=== PATIENT | female | born 1955 | race Caucasian/White ===

== ENCOUNTER 2018-04-27 11:27 | Emergency (ER) | payer OTHER ==
[2018-04-27 11:32] VITALS: BP 179/82; PULSE 93; RESP 16; TEMP 98.4
[2018-04-27] MEDS ORDERED: KETOROLAC 30 MG/ML 1 ML VIAL IM STA (11:44)
--- NOTE | 2018-04-27 11:51 | ED ---
General Adult HPI - General Chief complaint: Nausea/Vomiting/Diarrhea Stated complaint: Tooth,Ear,throat pain Time Seen by Provider: 04/27/18 11:34 Source: patient, RN notes reviewed, old records reviewed Mode of arrival: ambulatory Limitations: no limitations - History of Present Illness Initial comments: 62-year-old female presents for evaluation of right lower dental pain. Patient states that approximately 3 weeks ago she lost a filling, she has had progressive pain at this location for the past 2 weeks. This pain has become more severe. Denies fever or chills. She does complain of some facial pain adjacent to the affected tooth. She also complains of some nausea associated with her pain. She's had several episodes of vomiting in the past 24 hours. She has not vomited in the past several hours and had been able to tolerate some oral liquids. No diarrhea. No abdominal pain. No fever or chills. - Related Data Previous Rx's Medication Instructions Recorded Amoxicillin 500 mg PO TID #30 cap 04/27/18 Ibuprofen [Motrin] 600 mg PO Q8HR PRN #24 tab 04/27/18 Allergies Allergy/AdvReac Type Severity Reaction Status Date / Time No Known Allergies Allergy Verified 04/27/18 11:33 Review of Systems ROS Statement: Those systems with pertinent positive or pertinent negative responses have been documented in the HPI. ROS Other: All systems not noted in ROS Statement are negative. Past Medical History Past Medical History: No Reported History History of Any Multi-Drug Resistant Organisms: None Reported Past Surgical History: Section Additional Past Surgical History / Comment(s): kidney stones Past Psychological History: No Psychological Hx Reported Smoking Status: Former smoker Past Alcohol Use History: None Reported Past Drug Use History: None Reported General Exam Limitations: no limitations General appearance: alert, in no apparent distress Head exam: Present: atraumatic, normocephalic Eye exam: Present: normal appearance, PERRL ENT exam: Present: mucous membranes moist, other (Dental caries, missing filling in tooth #27, no drainable abscess, no facial swelling). Absent: TM's normal bilaterally Neck exam: Present: normal inspection. Absent: tenderness, meningismus Respiratory exam: Present: normal lung sounds bilaterally. Absent: respiratory distress, wheezes Cardiovascular Exam: Present: regular rate, normal rhythm GI/Abdominal exam: Present: soft. Absent: distended, tenderness, guarding, rebound Course Vital Signs 04/27/18 11:30 Temperature 98.4 F Pulse Rate 93 Respiratory 16 Rate Blood Pressure 179/82 O2 Sat by Pulse 99 Oximetry Medical Decision Making - Medical Decision Making 62-year-old female with progressively worsening tooth pain over the past several weeks. Patient is nontoxic, well-appearing. She will make an appointment with her dentist on Saturday. She will take Tylenol and Motrin for pain. She is prescribed prescription strength Motrin. She is started on amoxicillin. She will return with worsening nausea vomiting, or inability to tolerate her prescriptions. She will return with development of fever. Disposition Clinical Impression: Dental caries, Pain, dental Disposition: HOME SELF-CARE Condition: Good Instructions: Acute Nausea and Vomiting (ED), Toothache (ED) Additional Instructions: Please follow up with your dentist as soon as possible. Please return to the emergency department with worsening or changing symptoms, return with development of fever, or significant nausea and vomiting. Prescriptions: Amoxicillin 500 mg PO TID #30 cap Ibuprofen [Motrin] 600 mg PO Q8HR PRN #24 tab PRN Reason: Pain Is patient prescribed a controlled substance at d/c from ED?: No Referrals: None,Stated [Primary Care Provider] - 1-2 days Time of Disposition: 11:50
== END 2018-04-27 12:21 | disposition home or self-care (01) ==
LOC: EC 11:27
DX: K02.9 Dental caries, unspecified (principal); R11.2 Nausea with vomiting, unspecified; R07.0 Pain in throat; H92.09 Otalgia, unspecified ear; Z87.891 Personal history of nicotine dependence
CPT/HCPCS: 99284; 96372; J1885

== ENCOUNTER 2019-09-18 20:03 | Observation (INO) | payer OTHER ==
[2019-09-18] MEDS ORDERED: ONDANSETRON 4 MG/2 ML VIAL IVP STA (20:52)
[2019-09-18] MEDS ORDERED: SODIUM CHLORIDE 0.9% 500 ML 500 ML IV STA (20:52)
[2019-09-18] MEDS ORDERED: SODIUM CHLORIDE 0.9% 1,000 ML IV STA ×2 (20:52)
[2019-09-18] MEDS ORDERED: ACETAMINOPHEN TAB 500 MG TAB PO STA (20:52)
--- NOTE | 2019-09-18 20:52 | ED ---
Fever HPI - General Chief Complaint: Fever Stated Complaint: Fever,NVD,Headache Time Seen by Provider: 09/18/19 20:20 Source: patient, RN notes reviewed, old records reviewed Mode of arrival: ambulatory Limitations: no limitations - History of Present Illness Initial Comments: This is a 63-year-old female not feeling well coming in for evaluation of aches and pains fever nausea vomiting and diarrhea. No recent antibiotic therapy no travel history she has a positive contact with flu believes through work. No rashes, increased cough and congestion with shortness of breath on exertion MD Complaint: fever, malaise, weakness -: days(s) Temperature Source: subjective Context: sick contacts Associated Symptoms: chills, myalgias, cough, nausea, vomiting, diarrhea Treatments Prior to Arrival: none - Related Data Previous Rx's Medication Instructions Recorded Amoxicillin 500 mg PO TID #30 cap 04/27/18 Ibuprofen [Motrin] 600 mg PO Q8HR PRN #24 tab 04/27/18 Allergies Allergy/AdvReac Type Severity Reaction Status Date / Time No Known Allergies Allergy Verified 09/18/19 20:08 Review of Systems ROS Statement: Those systems with pertinent positive or pertinent negative responses have been documented in the HPI. ROS Other: All systems not noted in ROS Statement are negative. Past Medical History Past Medical History: No Reported History Additional Past Medical History / Comment(s): kidney stones History of Any Multi-Drug Resistant Organisms: None Reported Past Surgical History: Section Additional Past Surgical History / Comment(s): kidney stones Past Psychological History: No Psychological Hx Reported Smoking Status: Former smoker Past Alcohol Use History: None Reported Past Drug Use History: None Reported General Exam Limitations: no limitations General appearance: alert, in no apparent distress Head exam: Present: atraumatic, normocephalic, normal inspection Eye exam: Present: normal appearance, PERRL, EOMI. Absent: scleral icterus, conjunctival injection, periorbital swelling ENT exam: Present: normal exam, mucous membranes dry Neck exam: Present: normal inspection. Absent: tenderness, meningismus, lymphadenopathy Respiratory exam: Present: normal lung sounds bilaterally. Absent: respiratory distress, wheezes, rales, rhonchi, stridor Cardiovascular Exam: Present: normal rhythm, tachycardia, normal heart sounds. Absent: systolic murmur, diastolic murmur, rubs, gallop, clicks GI/Abdominal exam: Present: soft, normal bowel sounds. Absent: distended, tenderness, guarding, rebound, rigid Extremities exam: Present: normal inspection, full ROM, normal capillary refill. Absent: tenderness, pedal edema, joint swelling, calf tenderness Back exam: Present: normal inspection Neurological exam: Present: alert, oriented X3, CN II-XII intact Psychiatric exam: Present: normal affect, normal mood Skin exam: Present: warm, dry, intact, normal color. Absent: rash Course Vital Signs 09/18/19 20:07 Temperature 101.3 F H Pulse Rate 103 H Respiratory 20 Rate Blood Pressure 187/82 O2 Sat by Pulse 95 Oximetry - Reevaluation(s) Reevaluation #1: 09/18/19 21:55 Medical records reviewed Reevaluation #2: 09/18/19 21:55 Symptoms improved with fever control, IV hydration - Consultations Consultation #1: elizabeth w Fredo on-call who are agreeable for admission Medical Decision Making - Medical Decision Making 63 female ER with evaluation of severe body aches pains fever and cough. Jose Juan berrios does have flu plus pneumonia, patient be admitted for IV antibiotics. She was resuscitation as needed, fever control - Lab Data Result diagrams: 09/18/19 21:30 09/18/19 21:30 Lab Results 09/18/19 09/18/19 09/18/19 Range/Units 20:10 21:30 21:30 WBC 8.4 (3.8-10.6) k/uL RBC 4.39 (3.80-5.40) m/uL Hgb 13.5 (11.4-16.0) gm/dL Hct 41.9 (34.0-46.0) % MCV 95.5 (80.0-100.0) fL MCH 30.7 (25.0-35.0) pg MCHC 32.2 (31.0-37.0) g/dL RDW 13.7 (11.5-15.5) % Plt Count 173 (150-450) k/uL Neutrophils % 88 % Lymphocytes % 6 % Monocytes % 4 % Eosinophils % 1 % Basophils % 0 % Neutrophils # 7.4 (1.3-7.7) k/uL Lymphocytes # 0.5 L (1.0-4.8) k/uL Monocytes # 0.4 (0-1.0) k/uL Eosinophils # 0.0 (0-0.7) k/uL Basophils # 0.0 (0-0.2) k/uL Sodium 138 (137-145) mmol/L Potassium 4.0 (3.5-5.1) mmol/L Chloride 104 (98-107) mmol/L Carbon Dioxide 27 (22-30) mmol/L Anion Gap 7 mmol/L BUN 14 (7-17) mg/dL Creatinine 0.51 L (0.52-1.04) mg/dL Est GFR (CKD-EPI)AfAm >90 (>60 ml/min/1.73 sqM) Est GFR (CKD-EPI)NonAf >90 (>60 ml/min/1.73 sqM) Glucose 128 H (74-99) mg/dL Plasma Lactic Acid Juan F (0.7-2.0) mmol/L Calcium 8.8 (8.4-10.2) mg/dL Phosphorus 3.2 (2.5-4.5) mg/dL Magnesium 1.8 (1.6-2.3) mg/dL Total Bilirubin 0.5 (0.2-1.3) mg/dL AST 29 (14-36) U/L ALT 15 (4-34) U/L Alkaline Phosphatase 73 (38-126) U/L Total Protein 7.1 (6.3-8.2) g/dL Albumin 4.0 (3.5-5.0) g/dL Influenza Type A RNA Detected H (Not Detectd) Influenza Type B (PCR) Not Detected (Not Detectd) 09/18/19 Range/Units 21:30 WBC (3.8-10.6) k/uL RBC (3.80-5.40) m/uL Hgb (11.4-16.0) gm/dL Hct (34.0-46.0) % MCV (80.0-100.0) fL MCH (25.0-35.0) pg MCHC (31.0-37.0) g/dL RDW (11.5-15.5) % Plt Count (150-450) k/uL Neutrophils % % Lymphocytes % % Monocytes % % Eosinophils % % Basophils % % Neutrophils # (1.3-7.7) k/uL Lymphocytes # (1.0-4.8) k/uL Monocytes # (0-1.0) k/uL Eosinophils # (0-0.7) k/uL Basophils # (0-0.2) k/uL Sodium (137-145) mmol/L Potassium (3.5-5.1) mmol/L Chloride (98-107) mmol/L Carbon Dioxide (22-30) mmol/L Anion Gap mmol/L BUN (7-17) mg/dL Creatinine (0.52-1.04) mg/dL Est GFR (CKD-EPI)AfAm (>60 ml/min/1.73 sqM) Est GFR (CKD-EPI)NonAf (>60 ml/min/1.73 sqM) Glucose (74-99) mg/dL Plasma Lactic Acid Juan F 1.0 (0.7-2.0) mmol/L Calcium (8.4-10.2) mg/dL Phosphorus (2.5-4.5) mg/dL Magnesium (1.6-2.3) mg/dL Total Bilirubin (0.2-1.3) mg/dL AST (14-36) U/L ALT (4-34) U/L Alkaline Phosphatase (38-126) U/L Total Protein (6.3-8.2) g/dL Albumin (3.5-5.0) g/dL Influenza Type A RNA (Not Detectd) Influenza Type B (PCR) (Not Detectd) - EKG Data -: EKG Interpreted by Me (EKG shows sinus rhythm of 82, MD 150, QRS 94, QTc 476) - Radiology Data Radiology results: report reviewed (Chest x-rays positive for pneumonia), image reviewed Disposition Clinical Impression: Influenza, Fever, Community acquired pneumonia Disposition: ADMITTED IP TO THIS HOSP Condition: Fair Is patient prescribed a controlled substance at d/c from ED?: No Referrals: None,Stated [Primary Care Provider] - 1-2 days
[2019-09-18] MEDS ORDERED: KETOROLAC 30 MG/ML 1 ML VIAL IVP STA (20:53)
--- NOTE | 2019-09-18 21:29 | XR ---
EXAMINATION TYPE: XR chest 2V DATE OF EXAM: 09/18/2019 COMPARISON: NONE HISTORY: Fever and cough TECHNIQUE: FINDINGS: Heart and mediastinum are normal. There are no hilar masses.. There is mild reticular densi ty left lower lobe. Pulmonary vascularity is normal. There is no heart failure. Bony thorax is intact . IMPRESSION: There is mild infiltrate left lower lobe. Normal heart.
[2019-09-18 21:44] LABS: Basophils % (A) 0 %; Eosinophils % (A) 1 %; HCT 41.9 % (34.0-46.0); HGB 13.5 gm/dL (11.4-16.0); Lymphocytes # (A) 0.5 k/uL (1.0-4.8); Lymphocytes % (A) 6 %; MCH 30.7 pg (25.0-35.0); MCHC 32.2 g/dL (31.0-37.0); MCV 95.5 fL (80.0-100.0); Monocytes # (A) 0.4 k/uL (0-1.0); Monocytes % (A) 4 %; Neutrophils # (A) 7.4 k/uL (1.3-7.7); Neutrophils % (A) 88 %; Platelet Count 173 k/uL (150-450); RBC 4.39 m/uL (3.80-5.40); RDW 13.7 % (11.5-15.5); WBC 8.4 k/uL (3.8-10.6)
[2019-09-18 21:52] LABS: ALT 15 U/L (4-34); AST 29 U/L (14-36); African American GFR (CKD) >90 (>60 ml/min/1.73 sqM); Alkaline Phosphatase 73 U/L (38-126); Anion Gap 7 mmol/L; Blood Urea Nitrogen 14 mg/dL (7-17); Calcium 8.8 mg/dL (8.4-10.2); Carbon Dioxide 27 mmol/L (22-30); Chloride 104 mmol/L (98-107); Glucose 128 mg/dL (74-99); Magnesium 1.8 mg/dL (1.6-2.3); Non-African American GFR(CKD) >90 (>60 ml/min/1.73 sqM); Phosphorus 3.2 mg/dL (2.5-4.5); Sodium 138 mmol/L (137-145); Total Bilirubin 0.5 mg/dL (0.2-1.3); Total Protein 7.1 g/dL (6.3-8.2)
[2019-09-18] MEDS ORDERED: AZITHROMYCIN 500 MG in SODIUM CHLORIDE 0.9% 250 ML IVPB STA (21:52)
[2019-09-18] MEDS ORDERED: DEXAMETHASONE SOD PHOSPHATE 10 MG/ML 1 ML VIAL IV STA (21:52)
[2019-09-18] MEDS ORDERED: OSELTAMIVIR 75 MG CAP PO STA (21:52)
[2019-09-18] MEDS ORDERED: ACETAMINOPHEN TAB 325 MG TAB PO PRN (21:52)
[2019-09-18] MEDS ORDERED: PNEUMONIA PROTOCOL UTILIZED 1 EACH MISC PO PRN (21:52)
[2019-09-18] MEDS ORDERED: IPRATROPIUM-ALBUTEROL 3 ML NEB INHALATION PRN (21:52)
[2019-09-18 21:55] LABS: Appearance,Urine Clear (Clear); Bacteria,Urine Rare /hpf; Bilirubin,Urine Negative (Negative); Blood,Urine Moderate (Negative); Color,Urine Yellow; Glucose,Urine (UA) Negative (Negative); Ketones,Urine Negative (Negative); Leukocyte Esterase,Urine Small (Negative); Mucus,Urine Rare /hpf; Nitrite,Urine Negative (Negative); Protein,Urine 1+ (Negative); RBC,Urine 33 /hpf (0-5); Specific Gravity,Urine 1.024 (1.001-1.035); Squamous Epithelial Cell,Urine 1 /hpf (0-4); Urobilinogen,Urine <2.0 mg/dL (<2.0); WBC,Urine 4 /hpf (0-5)
[2019-09-18] MEDS: SODIUM CHLORIDE 0.9% 1,000 ML IV SCH (23:32)
[2019-09-19] MEDS ORDERED: AZITHROMYCIN 500 MG in SODIUM CHLORIDE 0.9% 250 ML IVPB ONE (00:30)
--- NOTE | 2019-09-19 01:22 | P.HPIM ---
History of Present Illness H&P Date: 09/19/19 The patient is a 63-year-old female with no known PMH who presented to the ED for likely fever, chills, body aches, and lethargy. The patient reports that she believes she might of gotten the flu from 1 of her coworkers. 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 The patient notes that another girl was ill with similar symptoms at work yesterday evening. At time of interview, she reported feeling better. She reports continued cough nonproductive of phlegm. She notes continued mild nausea, but denied chest pain, shortness of breath, abdominal pain, dizziness, or headaches. Patient underwent an extensive evaluation in the emergency room with chest x-ray showing mild left lower lobe infiltrate, and EKG showing normal sinus rhythm at 82 bpm. Laboratory evaluation revealed a troponin of 0.044, influenza A positive, WBC count 8.4, and Hgb 13.5, platelets 173, sodium 138, potassium 4.0, BUN 14, creatinine 0.51, and glucose 128. Patient was given IV antibiotics, started on Tamiflu, and is being admitted for further management. Review of Systems Pertinent positives and negatives as discussed in HPI, a complete review of systems was performed and all other systems are negative. Past Medical History Past Medical History: No Reported History, GERD/Reflux Additional Past Medical History / Comment(s): STATES ACID REFLUX AND KIDNEY STONES History of Any Multi-Drug Resistant Organisms: None Reported Past Surgical History: Section Additional Past Surgical History / Comment(s): KIDNEY STONES Past Anesthesia/Blood Transfusion Reactions: No Reported Reaction Past Psychological History: No Psychological Hx Reported Smoking Status: Former smoker Past Alcohol Use History: None Reported Past Drug Use History: None Reported Additional Drug Use History / Comment(s): STATES QUIT SMOKING 40 YEARS AGO Medications and Allergies Home Medications Medication Instructions Recorded Confirmed Type Amoxicillin 500 mg PO TID #30 cap 04/27/18 Rx Ibuprofen [Motrin] 600 mg PO Q8HR PRN #24 tab 04/27/18 Rx Allergies Allergy/AdvReac Type Severity Reaction Status Date / Time No Known Allergies Allergy Verified 09/18/19 20:08 Physical Exam Vitals: Vital Signs Temp Pulse Pulse Resp BP BP Pulse Ox 09/18/19 23:30 99.2 F 82 148/70 93 L 09/18/19 22:48 99.6 F 78 18 141/69 98 09/18/19 20:07 101.3 F H 103 H 20 187/82 95 Intake and Output 09/18/19 09/18/19 09/19/19 14:59 22:59 06:59 Other: Weight 103.238 kg 103.238 kg General: non toxic, no distress, appears at stated age, normal weight Derm: no unusual rashes/lesions no unusual ecchymoses, warm, dry Head: atraumatic, normocephalic, symmetric Eyes: EOMI, no lid lag, anicteric sclera, pupils equal round reactive to light ENT: Nose and ears atraumatic, no thrush, no pharyngeal erythema Neck: No thyromegaly, no cervical lymphadenopathy, trachea midline, supple Mouth: no lip lesion, mucus membranes moist Cardiovascular: S1S2 reg, no murmur, positive posterior tibial pulse bilateral, no edema, capillary refill less than 2 seconds Lungs: Some scattered rhonchi, no rales , no accessory muscle use Abdominal: soft, nontender to palpation, no guarding, no appreciable organomegaly, normal bowel sounds Ext: no gross muscle atrophy, muscle strength 5 out of 5 in all 4 extremities grossly, no contractures, Neuro: CN II-XI grossly intact, light touch intact all 4 extremities, finger to nose within normal limits, Psych: Alert, oriented, appropriate affect Results CBC & Chem 7: 09/18/19 21:30 09/18/19 21:30 Labs: Abnormal Lab Results - Last 24 Hours (Table) 09/18/19 09/18/19 09/18/19 Range/Units 20:10 21:30 21:30 Lymphocytes # 0.5 L (1.0-4.8) k/uL Creatinine 0.51 L (0.52-1.04) mg/dL Glucose 128 H (74-99) mg/dL Troponin I (0.000-0.034) ng/mL Urine Protein (Negative) Urine Blood (Negative) Ur Leukocyte Esterase (Negative) Urine RBC (0-5) /hpf Urine Bacteria (None) /hpf Urine Mucus (None) /hpf Influenza Type A RNA Detected H (Not Detectd) 02/21/20 02/21/20 Range/Units 21:30 21:35 Lymphocytes # (1.0-4.8) k/uL Creatinine (0.52-1.04) mg/dL Glucose (74-99) mg/dL Troponin I 0.044 H* (0.000-0.034) ng/mL Urine Protein 1+ H (Negative) Urine Blood Moderate H (Negative) Ur Leukocyte Esterase Small H (Negative) Urine RBC 33 H (0-5) /hpf Urine Bacteria Rare H (None) /hpf Urine Mucus Rare H (None) /hpf Influenza Type A RNA (Not Detectd) Assessment and Plan Plan: Sepsis, likely secondary to combination of influenza A infection and community acquired pneumonia -Continue with ceftriaxone and azithromycin -Continue with Tamiflu -IV fluids with normal saline 100 mL/h -Follow up blood and sputum cultures -Supplemental oxygen -C/w droplet isolation Elevated troponin -Patient denied active chest pain, or shortness of breath -Likely secondary to sepsis -Continue to monitor troponins DVT prophylaxis -Heparin subq The patient is admitted with an anticipated less than 2 midnight stay for evaluation of influenza a infection CODE STATUS: Full Code Discussed with: Patient Anticipated discharge date: 1-[address]: Home A total of 35 minutes was spent on the care of this complex patient more than 50% of the time was spent in counseling and care coordination.
--- NOTE | 2019-09-19 07:03 | XR ---
EXAMINATION TYPE: XR chest 2V DATE OF EXAM: 09/19/2019 HISTORY: pneumonia. REFERENCE: Previous study dated 09/18/2019. FINDINGS: Heart size upper limits of normal. Interstitial change in the left lower lobe persists. The re is no focal consolidation. No pleural fluid is seen. IMPRESSION: CONTINUING, PATCHY INTERSTITIAL AND ALVEOLAR AIRSPACE DISEASE, LEFT LOWER LOBE, COMPATIBLE WITH DEVEL OPING PNEUMONIA.
[2019-09-19 08:42] LABS: HCT 40.5 % (34.0-46.0); HGB 13.1 gm/dL (11.4-16.0); MCH 31.1 pg (25.0-35.0); MCHC 32.2 g/dL (31.0-37.0); MCV 96.5 fL (80.0-100.0); Mean Platelet Volume 7.8; Platelet Count 202 k/uL (150-450); WBC 8.8 k/uL (3.8-10.6)
[2019-09-19 08:48] LABS: African American GFR (CKD) >90 (>60 ml/min/1.73 sqM); Anion Gap 7 mmol/L; Blood Urea Nitrogen 13 mg/dL (7-17); Carbon Dioxide 24 mmol/L (22-30); Chloride 108 mmol/L (98-107); Glucose 139 mg/dL (74-99); Non-African American GFR(CKD) >90 (>60 ml/min/1.73 sqM); Potassium 3.9 mmol/L (3.5-5.1); Sodium 139 mmol/L (137-145)
[2019-09-19 08:52] VITALS: BP 160/74; PULSE 69; RESP 17; TEMP 98.7
[2019-09-19] MEDS: SODIUM CHLORIDE 0.9% 1,000 ML IV SCH (08:54)
[2019-09-19] MEDS ORDERED: AZITHROMYCIN 500 MG TAB PO SCH (09:00)
[2019-09-19] MEDS ORDERED: OSELTAMIVIR 75 MG CAP PO SCH (09:00)
[2019-09-19] MEDS ORDERED: ENOXAPARIN 40 MG/0.4 ML SYRINGE SQ SCH (09:00)
--- NOTE | 2019-09-19 13:43 | P.DS ---
Providers Date of admission: 09/18/19 21:52 Expected date of discharge: 09/19/19 Attending physician: David Roland MD Primary care physician: Stated None Hospital Course: Discharge Diagnosis: Influenza A Influenza pneumonia Sepsis ruled out tachycardia due to fevers elevated troponin, not clinically significant Hospital Course: Patient is a 63-year-old female with a history of GERD, prior tobacco abuse, and kidney stones who presented to the emergency department for fevers, chills, body aches, and lethargy. She tested positive for influenza A. Lab oratory analysis showed mildly elevated troponin 0.044. Chest x-ray showed patchy airspace disease in the left lower lobe compatible with pneumonia. She was noted to have a fever of 101.3 and a pulse of 103. She was started on Rocephin, Zithromax, and Tamiflu. She was admitted for further monitoring. Her antibiotics were discontinued and it was felt that her pneumonia was likely related to influenza, as she did have appropriate response to treatment and did not have extensive pneumonia. On the morning of 09/19 she was feeling greatly improved. She was determined stable for discharge home. She'll complete her course of Tamiflu. She will follow up with the [facility] as able. She will be presented to the ER with any worsening of her symptoms are recurrent fevers that she may develop a secondary bacterial infection due to her influenza. We also discussed that if any of her family members become symptomatic he should be tested for flu and treated, we also discussed consider ation for prophylactic Tamiflu dosing considering her known influenza A. Patient seen and examined at bedside. No chest pain, shortness of breath, still with some abdominal pain, no diarrhea, no nausea, abdominal pain better. Vital signs reviewed and stable. General: non toxic, no distress, appears at stated age Derm: warm, dry Head: atraumatic, normocephalic, symmetric Eyes: EOMI, no lid lag, anicteric sclera Mouth: no lip lesion, mucus membranes moist Cardiovascular: S1S2 reg, no murmur, positive posterior tibial pulse bilateral, Lungs: Crackles left bases ,+ accessory muscle use Abdominal: soft, nontender to palpation, no guarding, no appreciable organomegaly Ext: no gross muscle atrophy, no edema, no contractures Neuro: CN II-XI grossly intact, no focal neuro deficits Psych: Alert, oriented, appropriate affect A total of 35 minutes of time were spent preparing this complex discharge summary . Patient Condition at Discharge: Stable Plan - Discharge Summary Discharge Rx Participant: No New Discharge Prescriptions: No Action Acetaminophen [Tylenol] 650 mg PO Q6H PRN PRN Reason: Headache Discharge Medication List Oseltamivir [Tamiflu] 75 mg PO Q12HR #8 cap 09/19/19 [Rx] Follow up Appointment(s)/Referral(s): None,Stated [Primary Care Provider] - 1-2 days [facility] Patient Instructions/Handouts: Influenza (DC) Activity/Diet/Wound Care/Special Instructions: Activity: as tolerated Diet: regular Special Instructions: Return to Emergency room if symptoms worsen Discharge/Stand Alone Forms: Work/Release Restrictions Form Discharge Disposition: HOME SELF-CARE
== END 2019-09-19 15:30 | disposition home or self-care (01) ==
LOC: EC 20:03 → 4SSUR 21:52
PROVIDERS: ADMIT Family Medicine; ATTEND Family Medicine
DX: J10.00 Influenza due to other identified influenza virus with unspecified type of pneumonia (principal); R00.0 Tachycardia, unspecified; A41.9 Sepsis, unspecified organism; K21.9 Gastro-esophageal reflux disease without esophagitis; Z87.891 Personal history of nicotine dependence; Z87.442 Personal history of urinary calculi; Z79.2 Long term (current) use of antibiotics; Z79.1 Long term (current) use of non-steroidal anti-inflammatories (NSAID)
CPT/HCPCS: 96366; 96367; 96372; 96361; 96365; 96375; 99285; 36415; 93005; 80053; 80048; 83605; 83735; 84100; 84484 ×2; 85025; 85027; 81001; 87040 ×2; 87502; 71046 ×2; G0378 ×2; J1100; J2405; J0456; J1650; J0696; J1885

== ENCOUNTER 2021-02-22 08:18 | Emergency (ER) | payer OTHER ==
[2021-02-22 08:24] VITALS: BP 186/102; PULSE 71; RESP 16; TEMP 97.6
--- NOTE | 2021-02-22 10:01 | CT ---
EXAMINATION TYPE: CT brain wo con DATE OF EXAM: 02/22/2021 COMPARISON: None HISTORY: Fall CT DLP: 1118.[address] of the brain was performed. The ventricles, basal cisterns and sulci overlying the cerebral convexities demonstrate mild enlargem ent. There is no evidence for intracranial hemorrhage or sulcal effacement. There is decreased attenuation about the periventricular white matter and deep white matter of both c erebral hemispheres, compatible with chronic small vessel ischemia. Differential diagnosis does inclu de demyelination. No mass effects are seen.No midline shift. Osseous calvarium is intact. Left occipital parietal scalp hematoma. If symptoms persist consider MRI. IMPRESSION: 1. Age related atrophic and chronic small vessel ischemic change without acute intracranial process s een at this time.Left occipital parietal scalp hematoma.
--- NOTE | 2021-02-22 10:03 | ED ---
Fall HPI - General Chief Complaint: Fall Stated Complaint: [facility] - fall Time Seen by Provider: 02/22/21 08:24 Source: patient, RN notes reviewed Mode of arrival: ambulatory Limitations: no limitations - History of Present Illness Initial Comments: 65-year-old female presents emergency Department chief complaint of head injury. Patient states she was walking department for work states her some water on the ground she slipped fall striking her head on left side. Her tetanus is up-to-date no blurred vision she has mild headache. Patient denies any neck pain back pain or any other extremity injuries. - Related Data Previous Rx's Medication Instructions Recorded Oseltamivir [Tamiflu] 75 mg PO Q12HR #8 cap 09/19/19 Allergies Allergy/AdvReac Type Severity Reaction Status Date / Time No Known Allergies Allergy Verified 02/22/21 08:19 Review of Systems ROS Statement: Those systems with pertinent positive or pertinent negative responses have been documented in the HPI. ROS Other: All systems not noted in ROS Statement are negative. Past Medical History Past Medical History: No Reported History, GERD/Reflux Additional Past Medical History / Comment(s): STATES ACID REFLUX AND KIDNEY STONES History of Any Multi-Drug Resistant Organisms: None Reported Past Surgical History: Section Additional Past Surgical History / Comment(s): KIDNEY STONES Past Anesthesia/Blood Transfusion Reactions: No Reported Reaction Past Psychological History: No Psychological Hx Reported Smoking Status: Never smoker Past Alcohol Use History: None Reported Past Drug Use History: None Reported General Exam Limitations: no limitations General appearance: alert, in no apparent distress Head exam: Present: atraumatic, normocephalic. Absent: normal inspection (Small superficial scalp laceration) Eye exam: Present: normal appearance, PERRL, EOMI. Absent: scleral icterus, conjunctival injection, periorbital swelling ENT exam: Present: normal exam, normal oropharynx, mucous membranes moist Neck exam: Present: normal inspection, full ROM. Absent: tenderness, meningismus, lymphadenopathy Respiratory exam: Present: normal lung sounds bilaterally. Absent: respiratory distress, wheezes, rales, rhonchi, stridor Cardiovascular Exam: Present: regular rate, normal rhythm, normal heart sounds. Absent: systolic murmur, diastolic murmur, rubs, gallop, clicks GI/Abdominal exam: Present: soft, normal bowel sounds. Absent: distended, tenderness, guarding, rebound, rigid Extremities exam: Present: normal inspection, full ROM, normal capillary refill. Absent: tenderness, pedal edema, joint swelling, calf tenderness Neurological exam: Present: alert, oriented X3, CN II-XII intact, reflexes normal. Absent: motor sensory deficit Skin exam: Present: warm, dry, intact, normal color. Absent: rash Course Vital Signs 02/22/21 08:19 Temperature 97.6 F Pulse Rate 71 Respiratory 16 Rate Blood Pressure 186/102 O2 Sat by Pulse 100 Oximetry Medical Decision Making - Medical Decision Making CT shows evidence of scalp hematoma patient does have superficial laceration does not require closure. Tetanus up-to-date. Otherwise unremarkable. Patient discharged in stable condition. Disposition Clinical Impression: Fall, Scalp hematoma, Scalp laceration Disposition: HOME SELF-CARE Condition: Stable Instructions (If sedation given, give patient instructions): Head Injury (ED) Additional Instructions: Please return to the Emergency Department if symptoms worsen or any other concerns. Is patient prescribed a controlled substance at d/c from ED?: No Referrals: None,Stated [Primary Care Provider] - 1-2 days Time of Disposition: 10:07
== END 2021-02-22 10:27 | disposition home or self-care (01) ==
LOC: EC 08:18
DX: S01.01XA Laceration without foreign body of scalp, initial encounter (principal); K21.9 Gastro-esophageal reflux disease without esophagitis; Z79.899 Other long term (current) drug therapy; W01.0XXA Fall on same level from slipping, tripping and stumbling without subsequent striking against object, initial encounter
CPT/HCPCS: 70450; 99284

== ENCOUNTER 2021-03-01 11:37 | Inpatient (IN) | payer OTHER, MEDICARE ==
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
--- NOTE | 2021-03-01 12:40 | CT ---
EXAMINATION TYPE: CT brain wo con for TPA DATE OF EXAM: 03/01/2021 COMPARISON: 02/22/2021 INDICATION: Confusion. DLP: 1118.8 mGycm, Automated exposure control for dose reduction was used. CONTRAST: None CT of the brain is performed utilizing 3 mm thick sections through the posterior fossa and 3 mm thick sections through the remaining calvarium. Study is performed within 24 hours of arrival to the hosp ital. No abnormal hyperdensity is present to suggest an acute intracranial hemorrhage. No mass lesion is evident. No acute infarcts are evident. Brain signal appears stable from comparison Ventricles and sulci are appropriate for the patient age. Paranasal sinuses and mastoid air cells within the [id number] are clear. There is some soft tissue swelling over the right occipital cortex region. This is diminished from co mparison. No underlying fractures evident. IMPRESSIONS: 1. No acute intracranial process. 2. MRI can be utilized for more sensitive evaluation of neurologic symptoms.
[2021-03-01 12:43] LABS: Basophils % (A) 1 %; Eosinophils # (A) 0.1 k/uL (0-0.7); Eosinophils % (A) 2 %; HCT 39.7 % (34.0-46.0); HGB 12.9 gm/dL (11.4-16.0); Lymphocytes # (A) 1.6 k/uL (1.0-4.8); Lymphocytes % (A) 23 %; MCH 32.1 pg (25.0-35.0); MCHC 32.6 g/dL (31.0-37.0); MCV 98.5 fL (80.0-100.0); Mean Platelet Volume 7.8; Monocytes # (A) 0.3 k/uL (0-1.0); Monocytes % (A) 5 %; Neutrophils # (A) 4.9 k/uL (1.3-7.7); Neutrophils % (A) 69 %; Platelet Count 255 k/uL (150-450); RBC 4.03 m/uL (3.80-5.40); RDW 13.4 % (11.5-15.5); WBC 7.2 k/uL (3.8-10.6)
[2021-03-01 12:48] LABS: ALT 14 U/L (4-34); AST 22 U/L (14-36); African American GFR (CKD) >90 (>60 ml/min/1.73 sqM); Albumin 3.8 g/dL (3.5-5.0); Alkaline Phosphatase 78 U/L (38-126); Anion Gap -2 mmol/L; Blood Urea Nitrogen 19 mg/dL (7-17); Calcium 9.3 mg/dL (8.4-10.2); Carbon Dioxide 25 mmol/L (22-30); Chloride 110 mmol/L (98-107); Glucose 144 mg/dL (74-99); Non-African American GFR(CKD) >90 (>60 ml/min/1.73 sqM); Potassium 3.8 mmol/L (3.5-5.1); Sodium 133 mmol/L (137-145); Total Bilirubin 0.2 mg/dL (0.2-1.3); Total Protein 6.3 g/dL (6.3-8.2)
--- NOTE | 2021-03-01 13:14 | CT ---
EXAMINATION TYPE: CT angio head neck DATE OF EXAM: 03/01/2021 COMPARISON: Correlation CT brain same day HISTORY: 65-year-old female acute neurologic deficit, stroke suspected. Confusion. TECHNIQUE: Contiguous axial scanning of the head and neck performed with IV Contrast, patient injecte d with 65 mL of Isovue 370. Coronal/sagittal reconstructions performed. 3-D reconstructions generated on a dedicated workstation. CT DLP: 564.3 mGycm Automated exposure control for dose reduction was used. FINDINGS: NECK: Conventional arch vessel branching anatomy. The vertebral arteries are codominant and patent throughout the course. Right common and internal carotid arteries are widely patent by NASCET criteria. Left common carotid artery is patent. There is mild atherosclerotic calcification within the left car otid bulb but without any significant narrowing of the left ICA by NASCET criteria. BRAIN: The vertebral and basilar arteries are patent as is the remainder of the posterior circulation. Bilateral patent posterior communicating arteries. Scattered mild atherosclerotic calcifications in the carotid siphons. No significant ICA stenosis. Re mainder of the anterior circulation is patent. No aneurysmal change is identified. Dural venous sinuses are patent. IMPRESSION: 1. NECK: MINIMAL ATHEROSCLEROTIC CHANGE AT THE LEFT CAROTID BULB. OTHERWISE, WIDELY PATENT CAROTID AN D VERTEBRAL ARTERIES OF THE NECK. 2. HEAD: NO LARGE VESSEL INTRACRANIAL ARTERIAL OCCLUSION, SIGNIFICANT STENOSIS, OR ANEURYSMAL CHANGE IS SEEN.
[2021-03-01 13:15] LABS: Partial Thromboplastin Time 22.8 sec (22.0-30.0); Prothrombin Time 10.6 sec (9.0-12.0)
--- NOTE | 2021-03-01 13:31 | XR ---
EXAMINATION TYPE: XR chest 2V DATE OF EXAM: 03/01/2021 COMPARISON: 09/19/2019 TECHNIQUE: PA and lateral views submitted. HISTORY: Altered mental status FINDINGS: The lungs are clear and there is no pneumothorax, pleural effusion, or focal pneumonia. Worsened in terstitium similar to prior exam. Arthropathy of the shoulders. Calcification along the left humeral head likely related to calcific tendinosis. IMPRESSION: 1. No acute process. Stable coarsened interstitium may represent chronic interstitial lung disease.
[2021-03-01] MEDS ORDERED: ASPIRIN 325 MG TAB PO STA (14:02)
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
[2021-03-01] MEDS: SODIUM CHLORIDE 0.9% 1,000 ML IV SCH (17:00)
[2021-03-01] MEDS ORDERED: CLOPIDOGREL 75 MG TAB PO STA (19:45)
[2021-03-01] MEDS: ATORVASTATIN 40 MG TAB PO SCH (20:33)
--- NOTE | 2021-03-02 00:03 | P.HPIM ---
History of Present Illness This is a pleasant 65 years old female with no significant past medical history, she is not on medication and she does not have PCP. 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 Presents with. Of confusion and left hand numbness since yesterday, she cannot feel her fingers. She denies any headache, blurred vision or slurred speech. As per daughter at bedside she was driving yesterday when she was confused although she was oriented to time, place and person but she is somewhat lost while driving. No dizziness or loss of consciousness. No weakness. No seizure-like activity. She fell about 2 months ago when she slipped on the floor without dizziness or syncope. Perfusion is improved currently but she still felt numb in her left upper extremity. No other symptoms like no chest pain or dyspnea, no change in urine or bowel habits. No fever. She denies smoking, alcohol or illicit tracts Vitals are stable, blood pressure is slightly elevated up to 191/83. Currently blood pressure is improved with systolic in 160s. Labs including CBC and INR are unremarkable. Sodium only slightly low at 133, creatinine at 0.4. Liver enzymes not elevated. Troponin less than 0.012. EKG shows sinus tachycardia at 107, QTC is 467, no significant ST-T changes Chest x-ray: No acute process. Chronic interstitial lung disease CT of the brain: No acute process. CTA of the brain: Minimal atherosclerotic changes of the left carotid bulb. Otherwise widely patent carotid and vertebral arteries of the neck . Head CTA showed no large vessel intracranial arterial occlusion. No significant stenosis or aneurysmal changes In the emergency room patient was started on aspirin 81 mg. Also normal saline at 100 mL per hour, Lipitor and one-time dose of Plavix 300 mg Review of Systems CONSTITUTIONAL: No fever, no malaise, no fatigue. HEENT: No recent visual problems or hearing problems. Denied any sore throat. CARDIOVASCULAR: No orthopnea, PND, no palpitations, no syncope. PULMONARY: No shortness of breath, no cough, no hemoptysis. GASTROINTESTINAL: No diarrhea, no nausea, no vomiting, no abdominal pain. No rmoactive bowel sounds. NEUROLOGICAL: No headaches, no weakness, no numbness. HEMATOLOGICAL: Denies any bleeding or petechiae. GENITOURINARY: Denies any burning micturition, frequency, or urgency. MUSCULOSKELETAL/RHEUMATOLOGICAL: Denies any joint pain, swelling, or any muscle pain. ENDOCRINE: Denies any polyuria or polydipsia. Past Medical History Past Medical History: No Reported History, GERD/Reflux Additional Past Medical History / Comment(s): STATES ACID REFLUX AND KIDNEY STONES History of Any Multi-Drug Resistant Organisms: None Reported Past Surgical History: Section Additional Past Surgical History / Comment(s): KIDNEY STONES Past Anesthesia/Blood Transfusion Reactions: No Reported Reaction Past Psychological History: No Psychological Hx Reported Smoking Status: Former smoker Past Alcohol Use History: None Reported Past Drug Use History: None Reported Medications and Allergies Home Medications Medication Instructions Recorded Confirmed Type Acetaminophen Tab [Tylenol] 650 mg PO Q4H PRN 03/01/21 03/01/21 History [id number] 2 tab PO DAILY PRN 03/01/21 03/01/21 History [Excedrin] Naproxen Sodium [Aleve] 220 mg PO BID PRN 03/01/21 03/01/21 History Allergies Allergy/AdvReac Type Severity Reaction Status Date / Time No Known Allergies Allergy Verified 03/01/21 14:26 Physical Exam Vitals: Vital Signs Temp Pulse Resp BP Pulse Ox 03/01/21 11:42 98.1 F 119 H 18 177/98 97 Intake and Output 02/28/21 03/01/21 03/01/21 22:59 06:59 14:59 Other: Weight 96.615 kg -GENERAL: The patient is alert and oriented x3, not in any acute distress. Obese HEENT: Pupils are round and equally reacting to light. EOMI. No scleral icterus. No conjunctival pallor. Normocephalic, atraumatic. No pharyngeal erythema. No thyromegaly. CARDIOVASCULAR: S1 and S2 present. No murmurs, rubs, or gallops. PULMONARY: Chest is clear to auscultation, no wheezing or crackles. ABDOMEN: Soft, nontender, nondistended, normoactive bowel sounds. No palpable organomegaly. MUSCULOSKELETAL: No joint swelling or deformity. EXTREMITIES: No cyanosis, clubbing, or pedal edema. NEUROLOGICAL: Gross neurological examination did not reveal any focal deficits. SKIN: No rashes. No petechiae Results CBC & Chem 7: 03/01/21 12:21 03/01/21 12:21 Labs: Abnormal Lab Results - Last 24 Hours (Table) 03/01/21 Range/Units 12:21 Sodium 133 L (137-145) mmol/L Chloride 110 H (98-107) mmol/L BUN 19 H (7-17) mg/dL Creatinine 0.48 L (0.52-1.04) mg/dL Glucose 144 H (74-99) mg/dL Assessment and Plan Assessment: Areas of coagulation associated with numbness of the left upper extremity of the hand of one-day duration Obesity with BMI of 34.9 Permissive hypertension Chronic interstitial lung disease Plan: This is a pleasant a 65 years old female who presents with TIA/CVA area Continue with aspirin and Lipitor Neurology consult Check MRI of the brain and cervical spine, echocardiogram and EEG Check TSH, vitamin B12 and hemoglobin A1c. Labs and medication were reviewed.. Continue same treatment. Continue with symptomatic treatment. Resume home medication. Monitor lytes and vitals. DVT and GI prophylaxis. Further recommendations depends on the clinical course of the patient DVT prophylaxis: Subcutaneous heparin GI Prophylaxis: Pepcid PT/OT: Pending Prognosis is guarded
[2021-03-02] MEDS: SODIUM CHLORIDE 0.9% 1,000 ML IV SCH ×2 (00:16→12:04)
[2021-03-02 06:10] LABS: Folate, Serum 19.5 ng/mL
--- NOTE | 2021-03-02 07:35 | ECHOF ---
Referral Reason:Thrombus MEASUREMENTS -------- HEIGHT: 165.1 cm WEIGHT: 96.6 kg BP: RVIDd: 2.8 cm (< 3.3) IVSd: 1.4 cm (0.6 - 1.1) LVIDd: 4.4 cm (3.9 - 5.3) LVPWd: 1.2 cm (0.6 - 1.1) IVSs: 1.7 cm LVIDs: 3.2 cm LVPWs: 1.7 cm Ao Diam: 3.2 cm (2.0 - 3.7) AV Cusp: 2.1 cm (1.5 - 2.6) LA Diam: 3.5 cm (2.7 - 3.8) MV EXCURSION: 22.560 mm (> 18.000) MV EF SLOPE: 102 mm/s (70 - 150) EPSS: 1.0 cm MV E Joo: 1.17 m/s MV DecT: 61 ms MV A Joo: 0.37 m/s MV E/A Ratio: 3.19 AR PHT: 539 ms RAP: 5.00 mmHg RVSP: 12.23 mmHg FINDINGS -------- Sinus rhythm. This was a technically difficult study with suboptimal views. The left ventricular size is normal. There is moderate concentric left ventricular hypertrophy. O verall left ventricular systolic function is normal with, an EF between 55 - 60 %. The right ventricle is normal in size. The left atrial size is normal. The right atrial size is normal. The aortic valve is trileaflet, and appears structurally normal. No aortic stenosis or regurgitation. Mild mitral annular calcification present. There is trace mitral regurgitation. The tricuspid valve appears structurally normal. Mild tricuspid regurgitation present. Right vent ricular systolic pressure is normal at < 35 mmHg. The pulmonic valve was not well visualized. There is no pulmonic regurgitation present. The aortic root size is normal. IVC Not well visulized. There is no pericardial effusion. CONCLUSIONS -------- 1. This was a technically difficult study with suboptimal views. 2. There is moderate concentric left ventricular hypertrophy. 3. Overall left ventricular systolic function is normal with, an EF between 55 - 60 %. 4. The left atrial size is normal. 5. The aortic valve is trileaflet, and appears structurally normal. No aortic stenosis or regurgitati on. 6. There is trace mitral regurgitation. 7. Mild tricuspid regurgitation present. 8. There is no pericardial effusion. FORENSIC CHEMIST: Elyssa Kennedy RDCS
[2021-03-02] MEDS: FAMOTIDINE 20 MG/2 ML VIAL IV SCH ×2 (08:33→20:53)
[2021-03-02] MEDS: HEPARIN SODIUM,PORCINE/PF 5,000 UNIT/0.5 ML SYRINGE SQ SCH ×2 (08:33→20:53)
[2021-03-02] MEDS: ASPIRIN 81 MG PO SCH (08:33)
[2021-03-02] MEDS ORDERED: ASPIRIN 325 MG TAB PO SCH (09:00)
[2021-03-02 10:14] LABS: Chol/HDL Ratio 3.18; LDL Cholesterol,Calculated 122.4 mg/dL (0.0-131.0); VLDL Calculation 12.6 mg/dL (5.00-40.00)
--- NOTE | 2021-03-02 10:51 | MR ---
EXAMINATION TYPE: MR brain wo/w DATE OF EXAM: 03/02/2021 COMPARISON: CT brain 03/01/2021 HISTORY: left hand paresthesia and weakness TECHNIQUE: Multiplanar, multisequence images of the brain and brainstem is performed without and with IV contras t, utilizing 9.5 mL intravenous Gadavist . FINDINGS: Diffusion imaging demonstrates a large area of abnormal signal involving the right parietal, occipita l and temporal lobe measuring at least 5 cm. Additional small foci of satellite abnormal signal is se en in the surrounding regions extending into the right basal ganglia. Vague area of increased signal involving the upper margin of the left parietal lobe most likely is artifactual. There is mild to moderate generalized degenerative change. There is abnormal signal in the white aracelis er which is nonspecific but most typical remote ischemia. No midline shift or mass effect. No abnormal enhancement. Orbits are symmetric. Changes of chronic sinusitis noted. Craniocervical asiya ction maintained. IMPRESSION: 1. Large area of acute ischemia involving the right temporal, occipital and parietal lobe as discusse d above with additional tiny satellite foci in the adjacent regions as discussed above. No midline sh ift. 2. Degenerative and additional areas of nonspecific white matter signal most typical remote ischemia. EXAMINATION TYPE: MR brain/cspine wo/w DATE OF EXAM: 03/02/2021 COMPARISON: NONE HISTORY: left hand paresthesia and weakness TECHNIQUE: T1 sagittal and coronal, T2 sagittal, and gradient echo axial views of the cervical spine are submitted. T1 sagittal and axial images. CONTRAST: 9.5 cc of Gadovist FINDINGS: NM significantly limited by motion artifact. The cranial cervical junction is preserved. There is limited assessment of abnormal signal within th e spinal cord due to severe motion artifact. Posterior no abnormal signal is seen on the sagittal T2 image At C2-3 there is no disc herniation or canal stenosis. Mild disc desiccation and degenerative disc di sease. Uncovertebral joint hypertrophy on the right. At C3-4 there is degenerative disc disease with posterior spondylosis and uncovertebral joint hypertr ophy bilaterally greater on the right resulting in moderate right foraminal encroachment. Mild facet arthropathy. No canal stenosis or disc herniation. At C4-5 there is posterior spondylosis and facet arthropathy with uncovertebral joint hypertrophy. Mo tion artifact limits the exam. Suspect mild bilateral foraminal encroachment. No obvious canal stenos is or disc herniation as visualized. Minimal central disc bulging noted. At C5-6 there is limited again by motion artifact demonstrating broad-based central disc protrusion. No spinal cord contact. Posterior spondylosis and degenerative disc disease. Facet arthropathy with u ncovertebral joint hypertrophy. Borderline to mild central stenosis and moderate bilateral foraminal encroachment. At C6-7 there is broad-based central disc herniation encroaching upon the anterior margin the spinal cord with very mild anterior mass effect. Uncovertebral joint hypertrophy bilaterally. Mild bilateral foraminal encroachment greater on the right. At C7-T1 there is central disc bulging. No canal stenosis or foraminal encroachment. Neural foramina patent. IMPRESSION: 1. Severely limited exam due to motion artifact demonstrates multilevel degenerative disc disease wi th broad-based disc herniation C6-C7 resulting in mild anterior compression of the spinal cord and ca nal stenosis. 2. Central disc protrusion C5-C6 with anterior compression upon the thecal sac no definite spinal cor d contact. 3. Multilevel cervical spondylosis, uncovertebral joint hypertrophy and foraminal encroachment as dis cussed above 4. Limited assessment of the spinal cord for abnormal signal due to motion artifact.
--- NOTE | 2021-03-02 11:43 | P.PN ---
Subjective Progress Note Date: 03/02/21 The patient is seen at bedside at beside and she noticed paresthesia over the entire left side and it started yesterday. Objective - Vital Signs Vital signs: Vital Signs Temp 98.3 F 03/02/21 07:00 Pulse 96 03/02/21 08:00 Resp 18 03/02/21 08:00 BP 188/81 03/02/21 07:00 Pulse Ox 98 03/02/21 07:00 Intake & Output 03/01/21 03/02/21 03/02/21 18:59 06:59 18:59 Intake Total 250 250 Balance 250 250 Weight 96.615 kg Intake: Oral 250 250 Other: Voiding Method Toilet Toilet # Voids 3 - Exam GENERAL: The patient is lying in bed and is not in acute distress. NEUROLOGICAL: Higher mental function: The patient is awake, alert, oriented to self, place and time. Patient is following commands. No aphasia and no neglect. Cranial nerves: The pupils are round, equal and reactive to light and accommodation. Visual haile are full to confrontation throughout. Extraocular movement is intact no nystagmus is noted. Facial sensation is normal to touch throughout. The facial strength is normal throughout. Hearing is mildly decreased bilaterally to hand rub. Tongue is midline and moved [id number] without any difficulty. No dysarthria is noted. Shoulder shrug is 4+ to 5- over the left extternal rotation. Motor: Gait is deferred. The strength is left elbow flexion is 4+ to 5-. Otherwise5 over 5 throughout. Normal tone and bulk. Cerebellum: Normal finger to nose bilaterally. Sensation: Sensation is decreased to touch over entire left side to touch. Reflexes (right/left): 2+ throughout. Plantars are downgoing bilaterally. Lipid panel is triglyceride of 63, cholesterol of 197, LDL of 122 and HDL of 62. Hemoglobin A1c is 5.0 which is considered within normal limits. TSH is 1.30 which is concerned within normal limits. Vitamin B12 is 243 which is considered the very low normal. Serum folate is 19.5 which considered within normal limits. CT of the head is reported as no acute intracranial process. MRI can be utilized for more sensitive evaluation of neurological symptoms. She does have a hematoma over the parietal/occipital region. CT angiography of the head and neck is reported as for the neck minimal aphthous chronic change at the left carotid bulb. Otherwise, widely patent carotid and vertebral arteries of the neck. Regarding the CT angiography of the head is reported as no large vessel intracranial arterial occlusion, significant stenosis or aneurysmal change is seen. MRI Brain: It is reported as large area of acute ischemic involving the right temporal, occipital and parietal lobe as discussed above with additional tiny satellite foci in addition to the region as discussed above. No midline shift. Degenerative and additional area of nonspecific white matter signal most typical remote ischemia. MRI of the cervical spine is reported as severely limited exam due to motion artifact demonstrated multilevel degenerative disc and disease with broad based disc herniation C6-C7 resulting in mild anterior compression of the spinal cord and canal stenosis. Central disc protrusion of C5-C6 with anterior compression upon the thecal sac no definite of spinal cord contact. Multilevel cervical spondylosis, on [place] vertebral joint hypertrophy and for middle encroachment as discussed above. Limited assessment of the spinal cord for abnormal signal due to motion artifact. 2-D echo was reported as moderate concentric left ventricular atrophy. Ejection fraction 55-60%. Left atrial size is normal. - Labs CBC & Chem 7: 03/01/21 12:21 03/01/21 12:21 Labs: Abnormal Lab Results - Last 24 Hours (Table) 03/01/21 03/02/21 Range/Units 12:21 05:29 Sodium 133 L (137-145) mmol/L Chloride 110 H (98-107) mmol/L BUN 19 H (7-17) mg/dL Creatinine 0.48 L (0.52-1.04) mg/dL Glucose 144 H (74-99) mg/dL HDL Cholesterol 62.0 H (40.0-60.0) mg/dL Assessment and Plan Assessment: * Acute ischemic stroke (Right temporal/occipital/parietal region). Has symptoms of left entire side pareshteisa and some weakness left upper extremity. Seems embolic (cardioembolic). No IV tpa since outside window. Ep * Low Vitamin B12 243. * Episode of encephalopathy due to above. * Cervical spondylosis Plan: Continue ASA 81mg and started on Plavix 75mg daily (loaded the patient with Plavix 300mg once yesterday. She was not on any antiplateletes). Continue Lipitor 40mg qhs for secondary stroke prophylaxis. LDL goal in strokes is <70. Consulted cardiology team for ERIC and placed order for event monitor. PT, OT and [employer] are consulted. On the cardiac monitoring. On every 4 hours neuro checks. Routine EEG is pending. I'll not start the patient on an antiepileptic drug unless there is epileptiform discharges or seizure on the EEG. Because of low vitamin B12, I started the patient on Vitamin B12 1000mcg daily with IM dose now (one time). Will defer the rest of medical management to the primary team. The plan is discussed with the patient and the primary team. Alessandro Perez MD Neuro-Hospitalist Time with Patient: Less than 30
[2021-03-02] MEDS ORDERED: CYANOCOBALAMIN 1,000 MCG/ML 1 ML VIAL IM ONE (12:00)
[2021-03-02] MEDS: CLOPIDOGREL 75 MG TAB PO SCH (12:01)
--- NOTE | 2021-03-02 12:45 | P.PN ---
Subjective This is a pleasant 65 years old female with no significant past medical history, she is not on medication and she does not have PCP. 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 Presents with. Of confusion and left hand numbness since yesterday, she cannot feel her fingers. She denies any headache, blurred vision or slurred speech. As per daughter at bedside she was driving yesterday when she was confused although she was oriented to time, place and person but she is somewhat lost while driving. No dizziness or loss of consciousness. No weakness. No se izure-like activity. She fell about 2 months ago when she slipped on the floor without dizziness or syncope. Perfusion is improved currently but she still felt numb in her left upper extremity. No other symptoms like no chest pain or dyspnea, no change in urine or bowel habits. No fever. She denies smoking, alcohol or illicit tracts Vitals are stable, blood pressure is slightly elevated up to 191/83. Currently blood pressure is improved with systolic in 160s. Labs including CBC and INR are unremarkable. Sodium only slightly low at 133, creatinine at 0.4. Liver enzymes not elevated. Troponin less than 0.012. EKG shows sinus tachycardia at 107, QTC is 467, no significant ST-T changes Chest x-ray: No acute process. Chronic interstitial lung disease CT of the brain: No acute process. CTA of the brain: Minimal atherosclerotic changes of the left carotid bulb. Otherwise widely patent carotid and vertebral arteries of the neck . Head CTA showed no large vessel intracranial arterial occlusion. No significant stenosis or aneurysmal changes In the emergency room patient was started on aspirin 81 mg. Also normal saline at 100 mL per hour, Lipitor and one-time dose of Plavix 300 mg 03/02/2021 Patient with left upper extremity paresthesia. MRI of the brain today showing large acute stroke on the right temporal, occipital and parietal regions with satellite foci While MRI of the cervical spine showing disc herniation at C6 to C7 with mild cord compression and spinal stenosis. Multilevel spondylosis of the cervical spine Blood pressure on the high side for permissive hypertension. Rest of Vitas looks stable. The his borderline low and his been replaced Patient is a started on aspirin and Plavix by neurology team Cardiology consult for ERIC and event monitor Objective - Vital Signs Vital signs: Vital Signs Temp 98.3 F 03/02/21 07:00 Pulse 96 03/02/21 08:00 Resp 18 03/02/21 08:00 BP 188/81 03/02/21 07:00 Pulse Ox 98 03/02/21 07:00 Intake & Output 03/01/21 03/02/21 03/02/21 18:59 06:59 18:59 Intake Total 250 250 Balance 250 250 Weight 96.615 kg Intake: Oral 250 250 Other: Voiding Method Toilet Toilet # Voids 3 - Exam GENERAL: The patient is alert and oriented x3, not in any acute distress. Well developed, well nourished. HEENT: Pupils are round and equally reacting to light. EOMI. No scleral icterus. No conjunctival pallor. Normocephalic, atraumatic. No pharyngeal erythema. No thyromegaly. CARDIOVASCULAR: S1 and S2 present. No murmurs, rubs, or gallops. PULMONARY: Chest is clear to auscultation, no wheezing or crackles. ABDOMEN: Soft, nontender, nondistended, normoactive bowel sounds. No palpable organomegaly. MUSCULOSKELETAL: No joint swelling or deformity. EXTREMITIES: No cyanosis, clubbing, or pedal edema. -NEUROLOGICAL: Cranial nerves are grossly intact. Motor 5/5 in all extremities. Sensation is decreased in the left upper extremity. Meningeal signs are absent SKIN: No rashes. no petechiae. - Labs CBC & Chem 7: 03/01/21 12:21 03/01/21 12:21 Labs: Abnormal Lab Results - Last 24 Hours (Table) 03/01/21 03/02/21 Range/Units 12:21 05:29 Sodium 133 L (137-145) mmol/L Chloride 110 H (98-107) mmol/L BUN 19 H (7-17) mg/dL Creatinine 0.48 L (0.52-1.04) mg/dL Glucose 144 H (74-99) mg/dL HDL Cholesterol 62.0 H (40.0-60.0) mg/dL Assessment and Plan Assessment: Acute right temporal, occipital and parietal stroke with left upper extremity paresthesia Obesity with BMI of 34.9 Permissive hypertension Chronic interstitial lung disease Plan: This is a pleasant a 65 years old female who presents with [place] CVA with left upper extremity paresthesia Continue with aspirin and Lipitor. Continue with Plavix Neurology consult Replace vitamin B12 Urge consulted for ERIC and event monitor Labs and medication were reviewed.. Continue same treatment. Continue with symptomatic treatment. Resume home medication. Monitor lytes and vitals. DVT and GI prophylaxis. Further recommendations depends on the clinical course of the patient DVT prophylaxis: Subcutaneous heparin GI Prophylaxis: Pepcid PT/OT: Pending Prognosis is guarded
--- NOTE | 2021-03-02 13:47 | EEG ---
ELECTROENCEPHALOGRAM REPORT DATE OF SERVICE: 03/02/2021. CLINICAL HISTORY: This is a 65-year-old woman with acute right temporal/occipital/parietal stroke who has altered mental status. The video EEG done to evaluate for epileptiform seizure activity. RELEVANT MEDICATION: The patient is not on any antiepileptic drugs. EEG TYPE: A routine 21 channel EEG performed with video using the 10/20 electrode placement system. DESCRIPTION: Wakefulness and drowsiness are obtained. During wakefulness, there is a posterior dominant rhythm of low to moderate voltage of 9.5-10 hertz activity that is well modulated, well sustained. There was no physiological stage 2 sleep architecture. There is diffuse moderate voltage of nonrhythmic delta intermixed with theta activity over the right temporal region. Interictal and ictal is none. ACTIVATION PROCEDURES: Photic stimulation did not evoke a posterior driving response. There is no abnormality seen over photic stimulation. Hyperventilation is not performed. CLINICAL INTERPRETATION: This is an abnormal routine EEG. The diffuse slowing of the right temporal region is consistent with the patient's history of stroke. Otherwise, the background is normal. There are no focal slowing, epileptiform discharge or seizure on the EEG. Clinical correlation is recommended. MMODL / IJN: [id number] / MTDD
--- NOTE | 2021-03-02 14:02 | P.CRDCN ---
History of Present Illness History of present illness: HISTORY OF PRESENTING ILLNESS This is a pleasant 65-year-old female past medical history significant for acid reflux and former nicotine dependence. 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 We have been asked to see in consultation for ERIC. She presented to the hospital with left arm loss of sensation. She underwent a CT of her brain that was unremarkable and subsequently an MRI which revealed a large right temporal, occipital and parietal lobe infarct with tiny satellite foci noted with no evidence of midline shift. She is seen and examined resting comfortably in bed with her daughters at the bedside. She is alert and oriented and able to move all of her extremities however she states she has no feeling or sensation in her left arm. She denies ever having had symptoms of chest discomfort, shortness of breath, dizziness or palpitations. She has never been diagnosed in the past with any sort of arrhythmia. EKG on arrival reveals sinus tachycardia heart rate of [address] or T wave abnormalities noted. Transthoracic echocardiogram performed revealed preserved LV systolic function with ejection fraction 55-60%. Laboratory data reviewed, CBC unremarkable, sodium 133, potassium 3.8, creatinine 0.48, troponin negative 1, LDL 122, TSH 1.34. She has been initiated on aspirin 81 mg daily, atorvastatin 40 mg daily and Plavix 75 mg daily per neurology. Telemetry tracings reviewed, this morning at 6:30 to what appears to be atrial fibrillation. It was very brief. REVIEW OF SYSTEMS At the time of my exam: CONSTITUTIONAL: Denies fever or chills. CARDIOVASCULAR: Denies chest pain, shortness of breath, orthopnea, PND or palpitations. RESPIRATORY: Denies cough. GASTROINTESTINAL: Denies abdominal pain, diarrhea, constipation, nausea or vomiting. MUSCULOSKELETAL: Denies myalgias. NEUROLOGIC: Complains of no sensation to touch in the left arm. Denies numbness, tingling, headache or weakness. ENDOCRINE: Denies fatigue, weight change, polydipsia or polyurina. GENITOURINARY: Denies burning, hematuria or urgency with micturation. HEMATOLOGIC: Denies history of anemia or bleeding. PHYSICAL EXAMINATION Blood pressure 188/81 heart rate 96 afebrile and maintaining oxygen saturation on room air. CONSTITUTIONAL: No apparent distress. HEENT: Head is normocephalic. Pupils are equal, round. Sclerae anicteric. Mucous membranes of the mouth are moist. No JVD. No carotid bruit. CHEST EXAMINATION: Lungs are clear to auscultation. No chest wall tenderness is noted on palpation or with deep breathing. HEART EXAMINATION: Regular rate and rhythm. S1, S2 heard. No murmurs, gallops or rub. ABDOMEN: Soft, nontender. Positive bowel sounds. EXTREMITIES: 2+ peripheral pulses, no lower extremity edema and no calf tenderness. NEUROLOGIC EXAMINATION: Patient is awake, alert and oriented x3. ASSESSMENT Acute ischemic stroke Possible paroxysmal atrial fibrillation PLAN Neurology is requesting ERIC for an acute ischemic stroke he believes to be cardioembolic in nature. Discussed with the patient and her daughters and she is agreeable to move forward with the above stated procedure. She'll be nothing by mouth after midnight tonight. Ongoing telemetry monitoring. Short burst of possible afib this morning. Difficult to discern as it was such a short burst. Anti-coagulation initiation pending ERIC findings. Blood pressure management per neurology. Thank you kindly for this consultation. Nurse Practitioner note has been reviewed, I agree with a documented findings and plan of care. Patient was seen and examined. Past Medical History Past Medical History: No Reported History, GERD/Reflux Additional Past Medical History / Comment(s): STATES ACID REFLUX AND KIDNEY STONES History of Any Multi-Drug Resistant Organisms: None Reported Past Surgical History: Section Additional Past Surgical History / Comment(s): KIDNEY STONES Past Anesthesia/Blood Transfusion Reactions: No Reported Reaction Past Psychological History: No Psychological Hx Reported Smoking Status: Former smoker Past Alcohol Use History: None Reported Past Drug Use History: None Reported Medications and Allergies Home Medications Medication Instructions Recorded Confirmed Type Acetaminophen Tab [Tylenol] 650 mg PO Q4H PRN 03/01/21 03/01/21 History [id number]-[id number] 2 tab PO DAILY PRN 03/01/21 03/01/21 History [Excedrin] Naproxen Sodium [Aleve] 220 mg PO BID PRN 03/01/21 03/01/21 History Allergies Allergy/AdvReac Type Severity Reaction Status Date / Time No Known Allergies Allergy Verified 03/01/21 14:26 Physical Exam Vitals: Vital Signs Temp Pulse Pulse Resp BP BP Pulse Ox 03/02/21 08:00 96 18 03/02/21 07:00 98.3 F 96 18 188/81 98 03/02/21 02:00 63 03/02/21 01:39 98.2 F 85 15 159/83 99 03/01/21 20:00 18 03/01/21 19:12 98.2 F 84 18 165/75 98 03/01/21 16:17 98.5 F 79 16 178/70 94 L 03/01/21 15:00 98.1 F 73 18 191/83 94 L 03/01/21 14:00 98.1 F 119 H 18 174/83 97 03/01/21 13:30 82 167/85 96 03/01/21 13:00 98.1 F 82 14 167/76 100 03/01/21 12:45 98.1 F 119 H 18 177/98 97 Intake and Output 03/01/21 03/02/21 03/02/21 22:59 06:59 14:59 Intake Total 250 250 Balance 250 250 Intake: Oral 250 250 Other: Voiding Method Toilet Toilet # Voids 3 Results 03/01/21 12:21 03/01/21 12:21 Cardiac Enzymes 03/01/21 03/01/21 Range/Units 12:21 12:21 AST 22 (14-36) U/L Troponin I <0.012 (0.000-0.034) ng/mL Coagulation 03/01/21 Range/Units 12:21 PT 10.6 (9.0-12.0) sec APTT 22.8 (22.0-30.0) sec Lipids 03/02/21 Range/Units 05:29 Triglycerides 63.0 (0.0-149.0) mg/dL Cholesterol 197 (0-200) mg/dL HDL Cholesterol 62.0 H (40.0-60.0) mg/dL Cholesterol/HDL Ratio 3.18 CBC 03/01/21 Range/Units 12:21 WBC 7.2 (3.8-10.6) k/uL RBC 4.03 (3.80-5.40) m/uL Hgb 12.9 (11.4-16.0) gm/dL Hct 39.7 (34.0-46.0) % Plt Count 255 (150-450) k/uL Comprehensive Metabolic Panel 03/01/21 Range/Units 12:21 Sodium 133 L (137-145) mmol/L Potassium 3.8 (3.5-5.1) mmol/L Chloride 110 H (98-107) mmol/L Carbon Dioxide 25 (22-30) mmol/L BUN 19 H (7-17) mg/dL Creatinine 0.48 L (0.52-1.04) mg/dL Glucose 144 H (74-99) mg/dL Calcium 9.3 (8.4-10.2) mg/dL AST 22 (14-36) U/L ALT 14 (4-34) U/L Alkaline Phosphatase 78 (38-126) U/L Total Protein 6.3 (6.3-8.2) g/dL Albumin 3.8 (3.5-5.0) g/dL Current Medications Generic Name Dose Route Start Last Admin Trade Name Freq PRN Reason Stop Dose Admin Aspirin 81 mg 03/02/21 09:00 03/02/21 08:33 Aspirin 81 Mg PO 81 mg DAILY JAEL Administration Atorvastatin Calcium 40 mg 03/01/21 21:00 03/01/21 20:33 Atorvastatin 40 Mg Tab PO 40 mg HS JAEL Administration Clopidogrel Bisulfate 75 mg 03/02/21 11:00 03/02/21 12:01 Clopidogrel 75 Mg Tab PO 75 mg DAILY JAEL Administration Cyanocobalamin 1,000 mcg 03/03/21 09:00 Cyanocobalamin 500 Mcg Tab PO DAILY JAEL Famotidine 20 mg 03/02/21 09:00 03/02/21 08:33 Famotidine 20 Mg/2 Ml Vial IV 20 mg Q12HR JEAL Administration Heparin Sodium (Porcine) 5,000 unit 03/02/21 09:00 03/02/21 08:33 Heparin Sodium,Porcine/Pf 5,000 Unit/0.5 Ml Syringe SQ 5,000 unit Q12HR JAEL Administration Sodium Chloride 1,000 mls @ 75 mls/hr 03/01/21 14:15 03/02/21 12:04 Saline 0.9% IV 75 mls/hr .[id number] JAEL Administration Intake and Output 03/01/21 03/02/21 03/02/21 22:59 06:59 14:59 Intake Total 250 250 Balance 250 250 Intake: Oral 250 250 Other: Voiding Method Toilet Toilet # Voids 3 03/01/21 12:21 03/01/21 12:21
[2021-03-02] MEDS: ONDANSETRON 4 MG/2 ML VIAL IVP PRN (18:18)
[2021-03-02] MEDS: ACETAMINOPHEN TAB 325 MG TAB PO PRN (18:18)
[2021-03-02] MEDS: ATORVASTATIN 40 MG TAB PO SCH (20:53)
[2021-03-03] MEDS: ACETAMINOPHEN TAB 325 MG TAB PO PRN ×3 (05:05→18:43)
[2021-03-03] MEDS: SIMETHICONE 80 MG CHEWABLE PO PRN ×3 (05:06→20:48)
[2021-03-03] MEDS: SODIUM CHLORIDE 0.9% 1,000 ML IV SCH ×2 (05:07→11:14)
[2021-03-03] MEDS: ASPIRIN 81 MG PO SCH (08:12)
[2021-03-03] MEDS: FAMOTIDINE 20 MG/2 ML VIAL IV SCH ×2 (08:13→20:48)
[2021-03-03] MEDS: CLOPIDOGREL 75 MG TAB PO SCH (08:13)
[2021-03-03] MEDS ORDERED: amLODIPine 5 MG TAB PO STA (09:58)
[2021-03-03] MEDS ORDERED: fentaNYL (PF) 50 MCG/ML 2 ML AMP ONE (10:08)
[2021-03-03] MEDS ORDERED: IV FLUID CONTINUATION 300 ML IV ONE (10:19)
[2021-03-03] MEDS ORDERED: BENZOCAINE SPRAY 1 CAN TOPICAL ONE (10:21)
[2021-03-03] MEDS ORDERED: fentaNYL (PF) 50 MCG/ML 2 ML AMP IVP ONE (10:23)
[2021-03-03] MEDS ORDERED: MIDAZOLAM 2 MG/2 ML VIAL IVP ONE (10:23)
--- NOTE | 2021-03-03 11:11 | ECHOT ---
TRANSESOPHAGEAL ECHOCARDIOGRAM INDICATION: Evaluation of cardiac source of stroke. PROCEDURE: After explaining the procedure to the patient, its risks and the complications, blood pressure, heart rate, O2 saturation was monitored. The throat was sprayed with Cetacaine. She received 2 mg intravenous Versed and 50 mcg of intravenous fentanyl. The probe was introduced in the esophagus without difficulty. Images were obtained. From that, the probe was removed. There was no immediate complication. FINDINGS: Left atrial size is normal. Left atrial appendage is normal. The left ventricular size and systolic function normal. The aortic valve appears to be normal. Mitral valve revealed mild thickening of the mitral valve leaflets. Tricuspid valve and pulmonic valve are normal. No pericardial effusion was noted. Descending thoracic aorta appears to be normal. Contrast bubble study revealed minimal late shunting across the interatrial septum with Valsalva maneuver. Doppler pulse wave and color Doppler obtained revealed mild mitral and tricuspid regurgitation with trace aortic regurgitation. There was no shunting by color Doppler study. CONCLUSION: 1. Normal appearance of left atrial appendage. 2. Normal left ventricular size and systolic function. 3. Mild mitral, tricuspid with trace aortic regurgitation. 4. Late minimal shunting across the interatrial septum with Valsalva maneuver, not documented on color. 5. Normal appearance of the descending thoracic aorta. MMODL / IJN: [id number] /
[2021-03-03] MEDS: CYANOCOBALAMIN 500 MCG TAB PO SCH (11:54)
[2021-03-03] MEDS: HEPARIN SODIUM,PORCINE/PF 5,000 UNIT/0.5 ML SYRINGE SQ SCH ×2 (11:55→20:48)
--- NOTE | 2021-03-03 13:03 | P.PN ---
Subjective Progress Note Date: 03/03/21 The patient seen at bedside and the per the patient's the granddaughter was at bedside she stated that the patient is about the same and she just got back from a transesophageal echocardiogram. She continues to have numbness and tingling over the left side as well as some weakness over the left side. No seizure activity is noted. She denies any worsening of her weakness. I spoke with the cardiology nurse practitioner and she stated that the upon reviewing the cardiac telemetry moderate they felt possibly there is a questionable atrial fibrillation/flutter. Objective - Vital Signs Vital signs: Vital Signs Temp 98.2 F 03/03/21 08:05 Pulse 70 03/03/21 11:15 Resp 16 03/03/21 11:15 BP 157/100 03/03/21 11:15 Pulse Ox 96 03/03/21 11:15 Intake & Output 03/02/21 03/03/21 03/03/21 18:59 06:59 18:59 Intake Total 250 250 50 Output Total 550 Balance 250 -300 50 Intake: IV 50 Oral 250 250 Output: Urine 550 Other: Voiding Method Toilet External Catheter # Voids 1 - Exam GENERAL: The patient is lying in bed and is not in acute distress. NEUROLOGICAL: Higher mental function: The patient is slightly drowsy (just got back from ERIC), oriented to self, place and time. Patient is following commands. No aphasia and no neglect. Cranial nerves: The pupils are round, equal and reactive to light and ac commodation. Visual haile are full to confrontation throughout. Extraocular movement is intact no nystagmus is noted. Facial sensation is normal to touch throughout. The facial strength is slight flattening over the left. Hearing is mildly decreased bilaterally to hand rub. Tongue is midline and moved [id number] without any difficulty. No dysarthria is noted. Shoulder shrug is 4+ to 5- over the left extternal rotation. Motor: Gait is deferred. The strength is left upper extremity is 3-4 and lower is 4+. Otherwise5 over 5 throughout. Normal tone and bulk. Cerebellum: Normal over the right with finger to nose and unable to perform on left because of weakness. Sensation: Sensation is decreased to touch over entire left side to touch. Reflexes (right/left): 2+ throughout. Plantars are downgoing bilaterally. Lipid panel is triglyceride of 63, cholesterol of 197, LDL of 122 and HDL of 62. Hemoglobin A1c is 5.0 which is considered within normal limits. TSH is 1.30 which is concerned within normal limits. Vitamin B12 is 243 which is considered the very low normal. Serum folate is 19.5 which considered within normal limits. CT of the head is reported as no acute intracranial process. MRI can be utilized for more sensitive evaluation of neurological symptoms. She does have a hematoma over the parietal/occipital region. CT angiography of the head and neck is reported as for the neck minimal aphthous chronic change at the left carotid bulb. Otherwise, widely patent carotid and vertebral arteries of the neck. Regarding the CT angiography of the head is reported as no large vessel intracranial arterial occlusion, significant stenosis or aneurysmal change is seen. MRI Brain: It is reported as large area of acute ischemic involving the right temporal, occipital and parietal lobe as discussed above with additional tiny satellite foci in addition to the region as discussed above. No midline shift. Degenerative and additional area of nonspecific white matter signal most typical remote ischemia. MRI of the cervical spine is reported as severely limited exam due to motion artifact demonstrated multilevel degenerative disc and disease with broad based disc herniation C6-C7 resulting in mild anterior compression of the spinal cord and canal stenosis. Central disc protrusion of C5-C6 with anterior compression upon the thecal sac no definite of spinal cord contact. Multilevel cervical spondylosis, on [place] vertebral joint hypertrophy and for middle encroachment as discussed above. Limited assessment of the spinal cord for abnormal signal due to motion artifact. 2-D echo was reported as moderate concentric left ventricular atrophy. Ejection fraction 55-60%. Left atrial size is normal. Transesophageal echocardiogram on 03/03/2021 is reported as normal appearance of left atrial appendage. Normal left ventricular size and systolic function. Late minimal shunting across the into her atrial septum with Valsalva maneuver, not documented on color. Routine EEG on 03/02/2021: To an abnormal routine EEG. Diffuse slowing over the right temporal region is consistent with the patient history of stroke. Otherwise the background is normal. There are no focal slowing, epileptiform discharges or seizure in the EEG. - Labs CBC & Chem 7: 03/01/21 12:21 03/01/21 12:21 Assessment and Plan Assessment: * Acute ischemic stroke (Right temporal/occipital/parietal region). Has symptoms of left entire side pareshteisa and some weakness left upper extremi ty. Seems embolic (cardioembolic) and per cardiology team ?atrial fibrillation/flutter. No IV tpa since outside window. * Low Vitamin B12 (243). * Episode of encephalopathy due to above. * Cervical spondylosis Plan: Continue ASA 81mg and started on Plavix 75mg daily. Recommend start on anticoagulation within 3 days (03/06) (to avoid any hemorrhagic conversion especially with large acute stroke). If anticoagulation is started recommend stopping Plavix. Continue Lipitor 40mg qhs for secondary stroke prophylaxis. LDL goal in strokes is <70. Will get repeat CT head tomorrow to evaluate for any evolution of stroke. Ordered for event monitor. PT, OT and [employer]ER are consulted. Consulted Dr. Gutierres for inpatient rehab. On the cardiac monitoring. On every 4 hours neuro checks. Because of low vitamin B12, continue Vitamin B12 1000mcg daily. Will defer the rest of medical management to the primary team. I believe the patient will benefit from inpatient rehab. The plan is discussed with the patient, her grand-daughter who is at bedside and her nurse. Dr. Henderson take over neurology service starting tomorrow AM. Alessandro Perez MD Neuro-Hospitalist Time with Patient: Less than 30
--- NOTE | 2021-03-03 14:13 | P.CONS ---
History of Present Illness - Chief Complaint Gait disturbance, left hemiparesthesias - History of Present Illness I had the opportunity to see patient for inpatient rehab consultation with regard to gait disturbance. She is admitted to [facility] March 01 with acute onset left-sided numbness and weakness for which she is seen by Dr. Alessandro Perez. Seen by cardiology for known coronary artery disease. Note that she does not follow regularly with PCP or cardiology. Head CT and chest x-ray were negative. Angiogram CT with mild atherosclerosis only. Brain MRI with large infarct right temporal parietal subdural. C-spine MRI with DDD C3, 4 with encroachment central C3, 4. His herniations C5, 6 with stenosis central and bilateral C5 and encroachment central C6. PT reports supervision for bed mobility and minimal assistance for gait 100 feet hand-held. OT reports minimal assist for feeding, grooming, upper dressing, toileting and functional mobility/transfers and moderate assistance for lower dressing and total assistance for toileting. Note that I am observing PT and that currently requiring 2-3 person to sit up and stand. Stroke is completed or extended period Previous functional history as elicited from patient corroborative by grandson and granddaughter. 65-year-old left-handed white female who is lives in one floor home, 5 steps to enter. Lives with grandson. Patient working full- time in independent indeed including standing shower and gait without device. 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 Denies tobacco or alcohol. Family history mother with stroke. Review of Systems Review of systems: ENT: Denies sneezes or discharge. Eyes: Denies discharge or photophobia. Cardiac: Denies chest pain or palpitation. Pulmonary: Denies cough or shortness of breath. Breast: Denies discharge or lumps. Gastrointestinal: Denies nausea, emesis, constipation, diarrhea. Genitourinary: Denies discharge or frequency. Musculoskeletal: Denies muscle or bone aches. Neurologic: Left-sided weakness and numbness. Endocrine: Denies shakes or sweats. Oncology: Denies cancers. Dermatologic: Denies rash, itching, pruritus. ALLERGY/immunology: Denies sneezes, rashes. Past Medical History Past Medical History: No Reported History, GERD/Reflux Additional Past Medical History / Comment(s): STATES ACID REFLUX AND KIDNEY STONES History of Any Multi-Drug Resistant Organisms: None Reported Past Surgical History: Section Additional Past Surgical History / Comment(s): KIDNEY STONES Past Anesthesia/Blood Transfusion Reactions: No Reported Reaction Past Psychological History: No Psychological Hx Reported Smoking Status: Former smoker Past Alcohol Use History: None Reported Past Drug Use History: None Reported Medications and Allergies Home Medications Medication Instructions Recorded Confirmed Type Acetaminophen Tab [Tylenol] 650 mg PO Q4H PRN 03/01/21 03/01/21 History [id number]-[id number]-Okzv [id number] 2 tab PO DAILY PRN 03/01/21 03/01/21 History [Excedrin] Naproxen Sodium [Aleve] 220 mg PO BID PRN 03/01/21 03/01/21 History Allergies Allergy/AdvReac Type Severity Reaction Status Date / Time No Known Allergies Allergy Verified 03/01/21 14:26 Physical Exam Vitals: Vital Signs Temp Pulse Pulse Resp BP BP Pulse Ox 03/03/21 11:15 70 16 157/100 96 03/03/21 11:08 78 162/77 95 03/03/21 10:49 88 14 171/73 91 L 03/03/21 10:40 98 14 157/60 98 03/03/21 10:37 88 14 158/72 88 L 03/03/21 10:34 94 14 183/77 92 L 03/03/21 10:31 100 14 211/92 92 L 03/03/21 10:28 100 18 224/98 97 03/03/21 10:25 88 16 161/72 92 L 03/03/21 10:16 92 16 169/79 97 03/03/21 08:05 98.2 F 95 16 192/81 99 03/03/21 04:38 100 20 147/82 98 03/03/21 02:00 100 18 03/02/21 20:00 98 F 78 18 176/76 100 03/02/21 14:45 85 17 03/02/21 14:43 98.6 F 85 17 170/79 98 Intake and Output 03/02/21 03/03/21 03/03/21 22:59 06:59 14:59 Intake Total 250 50 Output Total 550 Balance 250 -550 50 Intake: IV 50 Oral 250 Output: Urine 550 Other: Voiding Method External Catheter Skin: Good color, texture, turgor. General: Medium build and comfortable appearance. Head: Normocephalic, atraumatic. Eyes: Symmetric. Pupils equal round. Ears: Symmetric. Hearing within normal limits. Mouth: Clear. Neck: Supple. Carotid without bruit. Cardiac: Regular rate and rhythm. Lungs: Clear anteriorly and posteriorly. Abdomen: Soft active nontender. Extremities: Normal tone. Neurological: Mental status: Alert, cooperative, pleasant. Poor body spatial awareness. Cranial nerves: Symmetric facial tone and trapezius. Motor: Active movement all 4 limbs but with synergy, apraxia and weakness left arm and leg. Sensation: Intact right side and diminished left-sided. DTRs: Symmetric and equal throughout. Mobility: Sits with 2-3 person assistance. Results CBC & Chem 7: 03/01/21 12:21 03/01/21 12:21 Assessment and Plan Plan: Impression: 1. Gait disturbance due to stroke result in left hemiparesthesias. 2. Coronary disease. 3. Reflux. Constant plan: At this time PT and OT are ongoing. Speech therapy prescribed as well. I have observed definite safety concerns and do not anticipate these to resolve quickly. Discussed possible inpatient rehab with patient and she seems agreeable.
--- NOTE | 2021-03-03 17:55 | P.PN ---
Subjective Progress Note Date: 03/03/21 Principal diagnosis: Acute right temporal, occipital and parietal stroke with left upper extremity paresthesia 65 years old female with no significant past medical history, she is not on medication and she does not have PCP. 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 Presents with. Of confusion and left hand numbness since yesterday, she cannot feel her fingers. She denies any headache, blurred vision or slurred speech. As per daughter at bedside she was driving yesterday when she was confused although she was oriented to time, place and person but she is somewhat lost while driving. No dizziness or loss of consciousness. No weakness. No seizure-like activity. She fell about 2 months ago when she slipped on the floor without dizziness or syncope. Perfusion is improved currently but she still felt numb in her left upper extremity. No other symptoms like no chest pain or dyspnea, no change in urine or bowel habits. No fever. She denies smoking, alcohol or illicit tracts Vitals are stable, blood pressure is slightly elevated up to 191/83. Currently blood pressure is improved with systolic in 160s. Labs including CBC and INR are unremarkable. Sodium only slightly low at 133, creatinine at 0.4. Liver enzymes not elevated. Troponin less than 0.012. EKG shows sinus tachycardia at 107, QTC is 467, no significant ST-T changes Chest x-ray: No acute process. Chronic interstitial lung disease CT of the brain: No acute process. CTA of the brain: Minimal atherosclerotic changes of the left carotid bulb. Otherwise widely patent carotid and vertebral arteries of the neck . Head CTA showed no large vessel intracranial arterial occlusion. No significant stenosis or aneurysmal changes In the emergency room patient was started on aspirin 81 mg. Also normal saline at 100 mL per hour, Lipitor and one-time dose of Plavix 300 mg Objective - Vital Signs Vital signs: Vital Signs Temp 98.2 F 03/03/21 08:05 Pulse 70 03/03/21 11:15 Resp 16 03/03/21 11:15 BP 157/100 03/03/21 11:15 Pulse Ox 96 03/03/21 11:15 Intake & Output 03/02/21 03/03/21 03/03/21 18:59 06:59 18:59 Intake Total 250 250 50 Output Total 550 Balance 250 -300 50 Intake: IV 50 Oral 250 250 Output: Urine 550 Other: Voiding Method Toilet External Catheter # Voids 1 - Exam GENERAL: The patient is alert and oriented x3, not in any acute distress. Well developed, well nourished. HEENT: Pupils are round and equally reacting to light. EOMI. No scleral icterus. No conjunctival pallor. Normocephalic, atraumatic. No pharyngeal erythema. No thyromegaly. CARDIOVASCULAR: S1 and S2 present. No murmurs, rubs, or gallops. PULMONARY: Chest is clear to auscultation, no wheezing or crackles. ABDOMEN: Soft, nontender, nondistended, normoactive bowel sounds. No palpable organomegaly. MUSCULOSKELETAL: No joint swelling or deformity. EXTREMITIES: No cyanosis, clubbing, or pedal edema. -NEUROLOGICAL: Cranial nerves are grossly intact. Motor 5/5 in all extremities. Sensation is decreased in the left upper extremity. Meningeal signs are absent SKIN: No rashes. no petechiae. - Labs CBC & Chem 7: 03/01/21 12:21 03/01/21 12:21 Assessment and Plan Assessment: Acute right temporal, occipital and parietal stroke with left upper extremity paresthesia Obesity with BMI of 34.9 Permissive hypertension Chronic interstitial lung disease Plan: This is a pleasant a 65 years old female who presents with Dueñas CVA with left upper extremity paresthesia Continue with aspirin and Lipitor. Continue with Plavix Neurology consult Replace vitamin B12 Urge consulted for ERIC and event monitor Labs and medication were reviewed.. Continue same treatment. Continue with symptomatic treatment. Resume home medication. Monitor lytes and vitals. DVT and GI prophylaxis. Further recommendations depends on the clinical course of the patient DVT prophylaxis: Subcutaneous heparin GI Prophylaxis: Pepcid PT/OT: Pending Prognosis is guarded
[2021-03-03] MEDS: ONDANSETRON 4 MG/2 ML VIAL IVP PRN (18:47)
[2021-03-03] MEDS: ATORVASTATIN 40 MG TAB PO SCH (20:48)
[2021-03-04] MEDS: ACETAMINOPHEN TAB 325 MG TAB PO PRN ×4 (06:15→23:00)
[2021-03-04] MEDS: SIMETHICONE 80 MG CHEWABLE PO PRN ×2 (06:15→17:08)
[2021-03-04] MEDS: CLOPIDOGREL 75 MG TAB PO SCH (08:59)
[2021-03-04] MEDS: ASPIRIN 81 MG PO SCH (08:59)
[2021-03-04] MEDS: CYANOCOBALAMIN 500 MCG TAB PO SCH (09:00)
[2021-03-04] MEDS: FAMOTIDINE 20 MG/2 ML VIAL IV SCH ×2 (09:01→20:17)
[2021-03-04] MEDS: HEPARIN SODIUM,PORCINE/PF 5,000 UNIT/0.5 ML SYRINGE SQ SCH ×2 (09:03→20:17)
[2021-03-04 09:47] LABS: Basophils % (A) 1 %; Eosinophils # (A) 0.1 k/uL (0-0.7); Eosinophils % (A) 1 %; HCT 44.4 % (34.0-46.0); HGB 14.4 gm/dL (11.4-16.0); Lymphocytes % (A) 15 %; MCH 32.1 pg (25.0-35.0); MCHC 32.4 g/dL (31.0-37.0); Mean Platelet Volume 7.5; Monocytes # (A) 0.3 k/uL (0-1.0); Monocytes % (A) 5 %; Neutrophils # (A) 5.2 k/uL (1.3-7.7); Neutrophils % (A) 77 %; Platelet Count 264 k/uL (150-450); RBC 4.49 m/uL (3.80-5.40); RDW 13.1 % (11.5-15.5); WBC 6.7 k/uL (3.8-10.6)
[2021-03-04 09:54] LABS: African American GFR (CKD) >90 (>60 ml/min/1.73 sqM); Anion Gap 9 mmol/L; Blood Urea Nitrogen 17 mg/dL (7-17); Calcium 9.5 mg/dL (8.4-10.2); Carbon Dioxide 20 mmol/L (22-30); Chloride 108 mmol/L (98-107); Glucose 69 mg/dL (74-99); Non-African American GFR(CKD) >90 (>60 ml/min/1.73 sqM); Potassium 3.9 mmol/L (3.5-5.1); Sodium 137 mmol/L (137-145)
--- NOTE | 2021-03-04 13:04 | P.PN ---
Subjective Progress Note Date: 03/04/21 HISTORY OF PRESENT ILLNESS: This is a pleasant 65-year-old female past medical history significant for acid reflux and former nicotine dependence. 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 We have been asked to see in consultation for ERIC. She presented to the hospital with left arm loss of sensation. She underwent a CT of her brain that was unremarkable and subsequently an MRI which revealed a large right temporal, occipital and parietal lobe infarct with tiny satellite foci noted with no evidence of midline shift. She is seen and examined resting comfortably in bed with her daughters at the bedside. She is alert and oriented and able to move all of her extremities however she states she has no feeling or sensation in her left arm. She denies ever having had symptoms of chest discomfort, shortness of breath, dizziness or palpitations. She has never been diagnosed in the past with any sort of arrhythmia. EKG on arrival reveals sinus tachycardia heart rate of [address] or T wave abnormalities noted. Transthoracic echocardiogram performed revealed preserved LV systolic function with ejection fraction 55-60%. Laboratory data reviewed, CBC unremarkable, sodium 133, potas sium 3.8, creatinine 0.48, troponin negative 1, LDL 122, TSH 1.34. She has been initiated on aspirin 81 mg daily, atorvastatin 40 mg daily and Plavix 75 mg daily per neurology. Telemetry tracings reviewed, this morning at 6:30 to what appears to be atrial fibrillation. It was very brief. 03/04/2021 Patient underwent ERIC yesterday revealing normal appearance of left atrial appendage. Normal left ventricular size and systolic function. Mild mitral tricuspid and trace aortic regurgitation. Late minimal shunting across the interatrial septum with Valsalva maneuver, not documented on color. Normal appearance of the descending thoracic aorta. Patient examined at the bedside. Patient's family member at the bedside who states the patient appears to be doing slightly worse today and has having difficulty moving her left leg. Neurology is currently following. Telemetry reveals sinus mechanism. PHYSICAL EXAM: VITAL SIGNS: Reviewed. GENERAL: Well-developed in no acute distress. NECK: Supple. No JVD or thyromegaly LUNGS: Respirations even and unlabored. Lungs essentially clear to auscultation bilaterally. HEART: Regular rate and rhythm. S1 and S2 heard. EXTREMITIES: No clubbing or cyanosis. Peripheral pulses intact. No lower extremity edema ASSESSMENT: Acute ischemic stroke Possible paroxysmal atrial fibrillation PLAN: Continue current cardiac medications Continue telemetry monitoring Neurology following Recommend anticoagulation for possible atrial fibrillation when cleared by neurology Further recommendations pending Patient course Nurse practitioner note has been reviewed by physician. Signing provider agrees with the documented findings, assessment, and plan of care. Objective - Vital Signs Vital signs: Vital Signs Temp 97.8 F 03/04/21 04:00 Pulse 86 03/04/21 12:00 Resp 16 03/04/21 12:00 BP 194/86 03/04/21 12:00 Pulse Ox 99 03/04/21 12:00 Intake & Output 03/03/21 03/04/21 03/04/21 18:59 06:59 18:59 Intake Total 550 Output Total 750 Balance 550 -750 Intake: IV 550 Sodium Chloride 0.9% 1, 500 000 ml @ 20 mls/hr IV . Q24H [facility] Rx#:[id number] Output: Urine 750 Other: Voiding Method External Catheter External Catheter External Catheter - Labs CBC & Chem 7: 03/04/21 09:16 03/04/21 09:16 Labs: Abnormal Lab Results - Last 24 Hours (Table) 03/04/21 Range/Units 09:16 Chloride 108 H (98-107) mmol/L Carbon Dioxide 20 L (22-30) mmol/L Creatinine 0.41 L (0.52-1.04) mg/dL Glucose 69 L (74-99) mg/dL
--- NOTE | 2021-03-04 17:48 | P.PN ---
Subjective Progress Note Date: 03/04/21 Principal diagnosis: Acute right temporal, occipital and parietal stroke with left upper extremity paresthesia 65 years old female with no significant past medical history, she is not on medication and she does not have PCP. 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 Presents with. Of confusion and left hand numbness since yesterday, she cannot feel her fingers. She denies any headache, blurred vision or slurred speech. As per daughter at bedside she was driving yesterday when she was confused although she was oriented to time, place and person but she is somewhat lost while driving. No dizziness or loss of consciousness. No weakness. No seizure-like activity. She fell about 2 months ago when she slipped on the floor without dizziness or syncope. Perfusion is improved currently but she still felt numb in her left upper extremity. No other symptoms like no chest pain or dyspnea, no change in urine or bowel habits. No fever. She denies smoking, alcohol or illicit tracts Vitals are stable, blood pressure is slightly elevated up to 191/83. Currently blood pressure is improved with systolic in 160s. Labs including CBC and INR are unremarkable. Sodium only slightly low at 133, creatinine at 0.4. Liver enzymes not elevated. Troponin less than 0.012. EKG shows sinus tachycardia at 107, QTC is 467, no significant ST-T changes Chest x-ray: No acute process. Chronic interstitial lung disease CT of the brain: No acute process. CTA of the brain: Minimal atherosclerotic changes of the left carotid bulb. Otherwise widely patent carotid and vertebral arteries of the neck . Head CTA showed no large vessel intracranial arterial occlusion. No significant stenosis or aneurysmal changes In the emergency room patient was started on aspirin 81 mg. Also normal saline at 100 mL per hour, Lipitor and one-time dose of Plavix 300 mg 03/04/2021 Patient is seen and evaluated in room at bedside; underwent ERIC yesterday rev ealing normal-appearing left atrial appendage, normal left ventricular size and systolic function,; mild mitral tricuspid and trace aortic regurgitation; late to minimal shunting across interatrial septum with Valsalva maneuver Patient is recommended to continue aspirin and statin therapy; ERIC completed for evaluation for paroxysmal atrial fibrillation; cardiology recommending to start patient on anticoagulation therapy for possible atrial fibrillation then cleared by neurology Objective - Vital Signs Vital signs: Vital Signs Temp 97.8 F 08/07/21 04:00 Pulse 101 H 03/04/21 08:00 Resp 16 03/04/21 08:00 BP 198/81 03/04/21 08:00 Pulse Ox 99 03/04/21 08:00 Intake & Output 03/03/21 03/04/21 03/04/21 18:59 06:59 18:59 Intake Total 550 Output Total 750 Balance 550 -750 Intake: IV 550 Sodium Chloride 0.9% 1, 500 000 ml @ 20 mls/hr IV . Q24H [facility] Rx#:[id number] Output: Urine 750 Other: Voiding Method External Catheter External Catheter External Catheter - Exam GENERAL: The patient is alert and oriented x3, not in any acute distress. Well developed, well nourished. HEENT: Pupils are round and equally reacting to light. EOMI. No scleral icterus. No conjunctival pallor. Normocephalic, atraumatic. No pharyngeal erythema. No thyromegaly. CARDIOVASCULAR: S1 and S2 present. No murmurs, rubs, or gallops. PULMONARY: Chest is clear to auscultation, no wheezing or crackles. ABDOMEN: Soft, nontender, nondistended, normoactive bowel sounds. No palpable organomegaly. MUSCULOSKELETAL: No joint swelling or deformity. EXTREMITIES: No cyanosis, clubbing, or pedal edema. -NEUROLOGICAL: Cranial nerves are grossly intact. Motor 5/5 in all extremities. Sensation is decreased in the left upper extremity. Meningeal signs are absent SKIN: No rashes. no petechiae. - Labs CBC & Chem 7: 03/04/21 09:16 03/04/21 09:16 Labs: Abnormal Lab Results - Last 24 Hours (Table) 03/04/21 Range/Units 09:16 Chloride 108 H (98-107) mmol/L Carbon Dioxide 20 L (22-30) mmol/L Creatinine 0.41 L (0.52-1.04) mg/dL Glucose 69 L (74-99) mg/dL Assessment and Plan Assessment: Acute right temporal, occipital and parietal stroke with left upper extremity paresthesia Obesity with BMI of 34.9 Permissive hypertension Chronic interstitial lung disease Plan: This is a pleasant a 65 years old female who presents with Dueñas CVA with left upper extremity paresthesia Continue with aspirin and Lipitor. Continue with Plavix Neurology consult Replace vitamin B12 Urge consulted for ERIC and event monitor Labs and medication were reviewed.. Continue same treatment. Continue with symptomatic treatment. Resume home medication. Monitor lytes and vitals. DVT and GI prophylaxis. Further recommendations depends on the clinical course of the patient DVT prophylaxis: Subcutaneous heparin GI Prophylaxis: Pepcid PT/OT: Pending Prognosis is guarded
[2021-03-04] MEDS: SODIUM CHLORIDE 0.9% 1,000 ML IV SCH (19:47)
[2021-03-04] MEDS: amLODIPine 5 MG TAB PO SCH (20:17)
[2021-03-04] MEDS: ATORVASTATIN 40 MG TAB PO SCH (20:17)
[2021-03-05] MEDS: ONDANSETRON 4 MG/2 ML VIAL IVP PRN ×2 (02:29→20:26)
[2021-03-05] MEDS: SIMETHICONE 80 MG CHEWABLE PO PRN ×3 (02:38→21:59)
[2021-03-05] MEDS: ACETAMINOPHEN TAB 325 MG TAB PO PRN ×3 (05:10→20:36)
[2021-03-05] MEDS: amLODIPine 5 MG TAB PO SCH (09:13)
[2021-03-05] MEDS: CYANOCOBALAMIN 500 MCG TAB PO SCH (09:13)
[2021-03-05] MEDS: ASPIRIN 81 MG PO SCH (09:14)
[2021-03-05] MEDS: CLOPIDOGREL 75 MG TAB PO SCH (09:14)
[2021-03-05] MEDS: HEPARIN SODIUM,PORCINE/PF 5,000 UNIT/0.5 ML SYRINGE SQ SCH ×2 (09:14→20:36)
[2021-03-05] MEDS: FAMOTIDINE 20 MG/2 ML VIAL IV SCH ×2 (09:14→20:37)
--- NOTE | 2021-03-05 09:45 | CT ---
EXAMINATION TYPE: CT brain wo con DATE OF EXAM: 03/05/2021 COMPARISON: 03/01/2021 INDICATION: TIA, evaluate for evolution of stroke DLP: 1072.4 mGycm, Automated exposure control for dose reduction was used. CONTRAST: None CT of the brain is performed utilizing 3 mm thick sections through the posterior fossa and 3 mm thick sections through the remaining calvarium. Study is performed within 24 hours of arrival to the hosp [facility]. No abnormal hyperdensity is present to suggest an acute intracranial hemorrhage. No mass lesion is evident. There is a right middle cerebral artery infarct mid and posterior regions . Mild local mass effect on the adjacent sulci is evident. No effacement of the ventricles or midline shift is evident. Ventricles and sulci are appropriate for the patient age. Paranasal sinuses and mastoid air cells within the [id number] are clear. IMPRESSIONS: 1. Evolving mid posterior right middle cerebral artery distribution right parietal infarct.
--- NOTE | 2021-03-05 14:21 | P.PN ---
Subjective Progress Note Date: 03/05/21 HISTORY OF PRESENT ILLNESS: This is a pleasant 65-year-old female past medical history significant for acid reflux and former nicotine dependence. 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 We have been asked to see in consultation for ERIC. She presented to the hospital with left arm loss of sensation. She underwent a CT of her brain that was unremarkable and subsequently an MRI which revealed a large right temporal, occipital and parietal lobe infarct with tiny satellite foci noted with no evidence of midline shift. She is seen and examined resting comfortably in bed with her daughters at the bedside. She is alert and oriented and able to move all of her extremities however she states she has no feeling or sensation in her left arm. She denies ever having had symptoms of chest discomfort, shortness of breath, dizziness or palpitations. She has never been diagnosed in the past with any sort of arrhythmia. EKG on arrival reveals sinus tachycardia heart rate of [address] or T wave abnormalities noted. Transthoracic echocardiogram performed revealed preserved LV systolic function with ejection fraction 55-60%. Laboratory data reviewed, CBC unremarkable, sodium 133, potas sium 3.8, creatinine 0.48, troponin negative 1, LDL 122, TSH 1.34. She has been initiated on aspirin 81 mg daily, atorvastatin 40 mg daily and Plavix 75 mg daily per neurology. Telemetry tracings reviewed, this morning at 6:30 to what appears to be atrial fibrillation. It was very brief. 03/04/2021 Patient underwent ERIC yesterday revealing normal appearance of left atrial appendage. Normal left ventricular size and systolic function. Mild mitral tricuspid and trace aortic regurgitation. Late minimal shunting across the interatrial septum with Valsalva maneuver, not documented on color. Normal appearance of the descending thoracic aorta. Patient examined at the bedside. Patient's family member at the bedside who states the patient appears to be doing slightly worse today and has having difficulty moving her left leg. Neurology is currently following. Telemetry reveals sinus mechanism. 03/05/2021 Patient examined this morning at the bedside. She denies chest pain or pressure. She denies short of breath. Telemetry reveals sinus mechanism. PHYSICAL EXAM: VITAL SIGNS: Reviewed. GENERAL: Well-developed in no acute distress. NECK: Supple. No JVD or thyromegaly LUNGS: Respirations even and unlabored. Lungs essentially clear to auscultation bilaterally. HEART: Regular rate and rhythm. S1 and S2 heard. EXTREMITIES: No clubbing or cyanosis. Peripheral pulses intact. No lower extremity edema ASSESSMENT: Acute ischemic stroke Possible paroxysmal atrial fibrillation PLAN: Continue current cardiac medications Continue telemetry monitoring Neurology following Recommend anticoagulation for possible atrial fibrillation when cleared by neurology Further recommendations pending Patient course Nurse practitioner note has been reviewed by physician. Signing provider agrees with the documented findings, assessment, and plan of care. Objective - Vital Signs Vital signs: Vital Signs Temp 98.1 F 03/05/21 04:00 Pulse 96 03/05/21 12:00 Resp 16 03/05/21 12:00 BP 167/79 03/05/21 12:00 Pulse Ox 100 03/05/21 12:00 Intake & Output 03/04/21 03/05/21 03/05/21 18:59 06:59 18:59 Output Total 750 725 Balance -750 -725 Weight 90 kg Output: Urine 750 725 Other: Voiding Method External Catheter External Catheter External Catheter # Voids 2 - Labs CBC & Chem 7: 03/04/21 09:16 03/04/21 09:16
--- NOTE | 2021-03-05 16:47 | P.PN ---
Subjective Progress Note Date: 03/05/21 The patient is seen in neurologic follow-up on March 05, 2021, via teleneurology. According to the patient's nurse, patient's neurologic status has deteriorated today. A CT scan of the brain was ordered and reveals an evolving right-sided cerebral infarct. There is no evidence of hemorrhage or herniation. In reviewing the chart, MRI of the brain is positive for right middle cerebral artery territory infarct. The patient herself reports that she has had increased slurring of her speech and inability to lift her left arm. She also reports left leg pain. She denies difficulty swallowing. She denies changes in vision. The patient's granddaughter is present at the time of the evaluation. Objective - Vital Signs Vital signs: Vital Signs Temp 98.1 F 03/05/21 04:00 Pulse 96 03/05/21 12:00 Resp 16 03/05/21 12:00 BP 167/79 03/05/21 12:00 Pulse Ox 100 03/05/21 12:00 Intake & Output 03/04/21 03/05/21 03/05/21 18:59 06:59 18:59 Output Total 750 725 Balance -750 -725 Weight 90 kg Output: Urine 750 725 Other: Voiding Method External Catheter External Catheter External Catheter # Voids 2 - Exam Gen.: The patient is reclining in the bed. She is in no acute distress. She is morbidly obese. HEENT: Head is atraumatic, normocephalic. Fundus not visualized. There is no scleral icterus. Mucous membranes are moist. Neck: There are no carotid bruits Heart: Regular rate and rhythm Neurological examination Mental status: When the patient begins speaking, her speech is slightly slurred. The longer she talks and provides a history as well as answers questions, the more clear her speech is and remains. Cranial nerves: Pupils are equal at 4 mm and reactive. Left pupil is sluggish. There is a left visual field deficit. Extraocular movements are intact. Light touch sensation is absent on the left side of the face. There is mild flattening of the left nasolabial fold. Hearing is grossly intact. Uvula and palate are midline. Shoulder shrug is diminished on the left. Tongue protrudes midline. Motor: Initially with strength testing, the left arm is flaccid. Left hip flexor strength 2-3/5. Left upper extremity strength improves with the assessment of rapid alternating movements. The patient is able to roll her ar ms, bilaterally, with the right rolling faster than the left. Deep tendon reflexes: 2+/4+ in the right upper extremity. 3+/4+ in the left upper extremity. Bilateral patellar reflexes are difficult to assess. Plantar responses are extensor on the left and flexor on the right. - Labs CBC & Chem 7: 03/04/21 09:16 03/04/21 09:16 Assessment and Plan Assessment: 1. Large right middle cerebral artery infarction, now more evident on CT scan of the brain. There is no sign of hemorrhage or hemorrhagic transformation. 2. Patient's reported symptoms of worsening may be secondary to edema however, I am not convinced that there are actual definitive signs of worsening neurologic function Plan: 1. CT scan of the brain images are reviewed. There is no evidence of hemorrhage or herniation. 2. Anticoagulation should be held for 7 days following stroke, especially in infarct this large. 3. Continue current care 4. Continue physical therapy 5. Consider continuing care consultation regarding discharge planning, possible acute rehabilitation placement and financial issues Time with Patient: Less than 30 (spent 25 minutes with patient via teleneurology)
--- NOTE | 2021-03-05 17:17 | P.PN ---
Subjective Progress Note Date: 03/05/21 Principal diagnosis: Acute right temporal, occipital and parietal stroke with left upper extremity paresthesia 65 years old female with no significant past medical history, she is not on medication and she does not have PCP. 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 Presents with. Of confusion and left hand numbness since yesterday, she cannot feel her fingers. She denies any headache, blurred vision or slurred speech. As per daughter at bedside she was driving yesterday when she was confused although she was oriented to time, place and person but she is somewhat lost while driving. No dizziness or loss of consciousness. No weakness. No seizure-like activity. She fell about 2 months ago when she slipped on the floor without dizziness or syncope. Perfusion is improved currently but she still felt numb in her left upper extremity. No other symptoms like no chest pain or dyspnea, no change in urine or bowel habits. No fever. She denies smoking, alcohol or illicit tracts Vitals are stable, blood pressure is slightly elevated up to 191/83. Currently blood pressure is improved with systolic in 160s. Labs including CBC and INR are unremarkable. Sodium only slightly low at 133, creatinine at 0.4. Liver enzymes not elevated. Troponin less than 0.012. EKG shows sinus tachycardia at 107, QTC is 467, no significant ST-T changes Chest x-ray: No acute process. Chronic interstitial lung disease CT of the brain: No acute process. CTA of the brain: Minimal atherosclerotic changes of the left carotid bulb. Otherwise widely patent carotid and vertebral arteries of the neck . Head CTA showed no large vessel intracranial arterial occlusion. No significant stenosis or aneurysmal changes In the emergency room patient was started on aspirin 81 mg. Also normal saline at 100 mL per hour, Lipitor and one-time dose of Plavix 300 mg 03/04/2021 Patient is seen and evaluated in room at bedside; underwent ERIC yesterday rev ealing normal-appearing left atrial appendage, normal left ventricular size and systolic function,; mild mitral tricuspid and trace aortic regurgitation; late to minimal shunting across interatrial septum with Valsalva maneuver Patient is recommended to continue aspirin and statin therapy; ERIC completed for evaluation for paroxysmal atrial fibrillation; cardiology recommending to start patient on anticoagulation therapy for possible atrial fibrillation then cleared by neurology 03/05/2021 Patient is seen and evaluated with multiple family members at bedside; nursing s taff and patient family reporting some deterioration in neurological status; patient evaluated by tele-neurology and a CT of the brain was ordered which reveals evolving right-sided cerebral infarct, without any evidence of hemorrhage or herniation; MRI of the brain is positive for right middle cerebral artery territory infarct. Neurology recommending to hold anticoagulation for 1 week following stroke; continue with PT/OT; case management to help with discharge planning; patient does report financial issues and has been recommended inpatient rehab Objective - Vital Signs Vital signs: Vital Signs Temp 98.1 F 03/05/21 04:00 Pulse 96 03/05/21 12:00 Resp 16 03/05/21 12:00 BP 167/79 03/05/21 12:00 Pulse Ox 100 03/05/21 12:00 Intake & Output 03/04/21 03/05/21 03/05/21 18:59 06:59 18:59 Output Total 750 725 Balance -750 -725 Weight 90 kg Output: Urine 750 725 Other: Voiding Method External Catheter External Catheter External Catheter # Voids 2 - Exam GENERAL: The patient is alert and oriented x3, not in any acute distress. Well developed, well nourished. HEENT: Pupils are round and equally reacting to light. EOMI. No scleral icterus. No conjunctival pallor. Normocephalic, atraumatic. No pharyngeal erythema. No thyromegaly. CARDIOVASCULAR: S1 and S2 present. No murmurs, rubs, or gallops. PULMONARY: Chest is clear to auscultation, no wheezing or crackles. ABDOMEN: Soft, nontender, nondistended, normoactive bowel sounds. No palpable organomegaly. MUSCULOSKELETAL: No joint swelling or deformity. EXTREMITIES: No cyanosis, clubbing, or pedal edema. -NEUROLOGICAL: Cranial nerves are grossly intact. Motor 5/5 in all extremities. Sensation is decreased in the left upper extremity. Meningeal signs are absent SKIN: No rashes. no petechiae. - Labs CBC & Chem 7: 03/04/21 09:16 03/04/21 09:16 Assessment and Plan Assessment: Acute right temporal, occipital and parietal stroke with left upper extremity paresthesia Obesity with BMI of 34.9 Permissive hypertension Chronic interstitial lung disease Plan: This is a pleasant a 65 years old female who presents with Dueñas CVA with left upper extremity paresthesia Continue with aspirin and Lipitor. Continue with Plavix Neurology consult Replace vitamin B12 Urge consulted for ERIC and event monitor Labs and medication were reviewed.. Continue same treatment. Continue with symptomatic treatment. Resume home medication. Monitor lytes and vitals. DVT and GI prophylaxis. Further recommendations depends on the clinical course of the patient DVT prophylaxis: Subcutaneous heparin GI Prophylaxis: Pepcid PT/OT: Pending Prognosis is guarded
[2021-03-05] MEDS: SODIUM CHLORIDE 0.9% 1,000 ML IV SCH (18:14)
[2021-03-05] MEDS: ATORVASTATIN 40 MG TAB PO SCH (20:37)
[2021-03-05] MEDS: MELATONIN 5 MG TABLET PO SCH (20:37)
[2021-03-06] MEDS: ACETAMINOPHEN TAB 325 MG TAB PO PRN ×3 (02:31→21:29)
[2021-03-06] MEDS: CYANOCOBALAMIN 500 MCG TAB PO SCH (08:27)
[2021-03-06] MEDS: FAMOTIDINE 20 MG/2 ML VIAL IV SCH (08:27)
[2021-03-06] MEDS: ASPIRIN 81 MG PO SCH (08:27)
[2021-03-06] MEDS: CLOPIDOGREL 75 MG TAB PO SCH (08:27)
[2021-03-06] MEDS: HEPARIN SODIUM,PORCINE/PF 5,000 UNIT/0.5 ML SYRINGE SQ SCH ×2 (08:27→21:29)
[2021-03-06] MEDS: amLODIPine 5 MG TAB PO SCH (08:27)
[2021-03-06 09:47] LABS: Basophils # (A) 0.1 k/uL (0-0.2); Basophils % (A) 1 %; Eosinophils # (A) 0.1 k/uL (0-0.7); Eosinophils % (A) 1 %; HCT 43.7 % (34.0-46.0); HGB 14.2 gm/dL (11.4-16.0); Lymphocytes # (A) 1.2 k/uL (1.0-4.8); Lymphocytes % (A) 14 %; MCH 32.1 pg (25.0-35.0); MCHC 32.6 g/dL (31.0-37.0); MCV 98.6 fL (80.0-100.0); Mean Platelet Volume 7.7; Monocytes # (A) 0.5 k/uL (0-1.0); Monocytes % (A) 6 %; Neutrophils # (A) 6.3 k/uL (1.3-7.7); Neutrophils % (A) 78 %; Platelet Count 260 k/uL (150-450); RBC 4.43 m/uL (3.80-5.40); RDW 13.1 % (11.5-15.5); WBC 8.1 k/uL (3.8-10.6)
[2021-03-06 10:08] LABS: African American GFR (CKD) >90 (>60 ml/min/1.73 sqM); Anion Gap 9 mmol/L; Blood Urea Nitrogen 17 mg/dL (7-17); Calcium 9.7 mg/dL (8.4-10.2); Carbon Dioxide 23 mmol/L (22-30); Chloride 107 mmol/L (98-107); Glucose 148 mg/dL (74-99); Non-African American GFR(CKD) >90 (>60 ml/min/1.73 sqM); Potassium 3.9 mmol/L (3.5-5.1); Sodium 139 mmol/L (137-145)
--- NOTE | 2021-03-06 11:18 | P.PN ---
Subjective Progress Note Date: 03/06/21 HISTORY OF PRESENT ILLNESS: This is a pleasant 65-year-old female past medical history significant for acid reflux and former nicotine dependence. She denies prior history of coronary artery disease and does not follow in the office with a street sprinkler. We have been asked to see in consultation for ERIC. She presented to the hospital with left arm loss of sensation. She underwent a CT of her brain that was unremarkable and subsequently an MRI which revealed a large right temporal, occipital and parietal lobe infarct with tiny satellite foci noted with no evidence of midline shift. She is seen and examined resting comfortably in bed with her daughters at the bedside. She is alert and oriented and able to move all of her extremities however she states she has no feeling or sensation in her left arm. She denies ever having had symptoms of chest discomfort, shortness of breath, dizziness or palpitations. She has never been diagnosed in the past with any sort of arrhythmia. EKG on arrival reveals sinus tachycardia heart rate of [address] or T wave abnormalities noted. Transthoracic echocardiogram performed revealed preserved LV systolic function with ejection fraction 55-60%. Laboratory data reviewed, CBC unremarkable, sodium 133, potas sium 3.8, creatinine 0.48, troponin negative 1, LDL 122, TSH 1.34. She has been initiated on aspirin 81 mg daily, atorvastatin 40 mg daily and Plavix 75 mg daily per neurology. Telemetry tracings reviewed, this morning at 6:30 to what appears to be atrial fibrillation. It was very brief. 03/04/2021 Patient underwent ERIC yesterday revealing normal appearance of left atrial appendage. Normal left ventricular size and systolic function. Mild mitral tricuspid and trace aortic regurgitation. Late minimal shunting across the interatrial septum with Valsalva maneuver, not documented on color. Normal appearance of the descending thoracic aorta. Patient examined at the bedside. Patient's family member at the bedside who states the patient appears to be doing slightly worse today and has having difficulty moving her left leg. Neurology is currently following. Telemetry reveals sinus mechanism. 03/05/2021 Patient examined this morning at the bedside. She denies chest pain or pressure. She denies short of breath. Telemetry reveals sinus mechanism. 03/06/2021 Patient examined this morning at the bedside. She denies chest pain or pressure. Denies shortness of breath. Telemetry reveals sinus mechanism. Patient continues to report left-sided weakness. CT of the brain completed yesterday reveals evolving mid posterior right middle cerebral artery distribution right parietal infarct. PHYSICAL EXAM: VITAL SIGNS: Reviewed. GENERAL: Well-developed in no acute distress. NECK: Supple. No JVD or thyromegaly LUNGS: Respirations even and unlabored. Lungs essentially clear to auscultation bilaterally. HEART: Regular rate and rhythm. S1 and S2 heard. EXTREMITIES: No clubbing or cyanosis. Peripheral pulses intact. No lower extremity edema ASSESSMENT: Acute ischemic stroke, large right middle cerebral artery infarct Possible paroxysmal atrial fibrillation PLAN: Continue current cardiac medications Continue telemetry monitoring Neurology following Recommend anticoagulation for possible atrial fibrillation when cleared by neurology Further recommendations pending patient course Nurse practitioner note has been reviewed by physician. Signing provider agrees with the documented findings, assessment, and plan of care. Objective - Vital Signs Vital signs: Vital Signs Temp 98.1 F 03/06/21 08:00 Pulse 98 03/06/21 08:00 Resp 18 03/06/21 08:00 BP 144/73 03/06/21 08:00 Pulse Ox 98 03/06/21 08:00 Intake & Output 03/05/21 03/06/21 03/06/21 18:59 06:59 18:59 Intake Total 700 Output Total 500 Balance 700 -500 Intake: IV 700 Sodium Chloride 0.9% 1, 700 000 ml @ 20 mls/hr IV . Q24H [facility] Rx#:[id number] Output: Urine 500 Other: Voiding Method External Catheter External Catheter External Catheter # Voids 2 1 - Labs CBC & Chem 7: 03/06/21 08:34 03/06/21 08:34 Labs: Abnormal Lab Results - Last 24 Hours (Table) 03/06/21 Range/Units 08:34 Creatinine 0.41 L (0.52-1.04) mg/dL Glucose 148 H (74-99) mg/dL
[2021-03-06] MEDS: SIMETHICONE 80 MG CHEWABLE PO PRN (11:20)
[2021-03-06] MEDS: SODIUM CHLORIDE 0.9% 1,000 ML IV SCH (11:20)
[2021-03-06] MEDS ORDERED: SENNOSIDES 8.6 MG TAB PO PRN (12:01)
[2021-03-06] MEDS: ONDANSETRON 4 MG/2 ML VIAL IVP PRN (14:23)
[2021-03-06] MEDS ORDERED: bisacodyL 10 MG SUPP RECTAL PRN (18:25)
[2021-03-06] MEDS: MELATONIN 5 MG TABLET PO SCH (21:29)
[2021-03-06] MEDS: ATORVASTATIN 40 MG TAB PO SCH (21:29)
[2021-03-06] MEDS: FAMOTIDINE 20 MG TAB PO SCH (21:31)
[2021-03-06 22:47] VITALS: RESP 18
--- NOTE | 2021-03-06 22:51 | P.PN ---
Subjective Progress Note Date: 03/06/21 Acute right temporal, occipital and parietal stroke with left upper extremity paresthesia 65 years old female with no significant past medical history, she is not on medication and she does not have PCP. 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 Presents with. Of confusion and left hand numbness since yesterday, she cannot feel her fingers. She denies any headache, blurred vision or slurred speech. As per daughter at bedside she was driving yesterday when she was confused although she was oriented to time, place and person but she is somewhat lost while driving. No dizziness or loss of consciousness. No weakness. No seizure-like activity. She fell about 2 months ago when she slipped on the floor without dizziness or syncope. Perfusion is improved currently but she still felt numb in her left upper ex tremity. No other symptoms like no chest pain or dyspnea, no change in urine or bowel habits. No fever. She denies smoking, alcohol or illicit tracts Vitals are stable, blood pressure is slightly elevated up to 191/83. Currently blood pressure is improved with systolic in 160s. Labs including CBC and INR are unremarkable. Sodium only slightly low at 133, creatinine at 0.4. Liver enzymes not elevated. Troponin less than 0.012. EKG shows sinus tachycardia at 107, QTC is 467, no significant ST-T changes Chest x-ray: No acute process. Chronic interstitial lung disease CT of the brain: No acute process. CTA of the brain: Minimal atherosclerotic changes of the left carotid bulb. Otherwise widely patent carotid and vertebral arteries of the neck . Head CTA showed no large vessel intracranial arterial occlusion. No significant stenosis or aneurysmal changes In the emergency room patient was started on aspirin 81 mg. Also normal saline at 100 mL per hour, Lipitor and one-time dose of Plavix 300 mg 03/04/2021 Patient is seen and evaluated in room at bedside; underwent ERIC yesterday revealing normal-appearing left atrial appendage, normal left ventricular size and systolic function,; mild mitral tricuspid and trace aortic regurgitation; late to minimal shunting across interatrial septum with Valsalva maneuver Patient is recommended to continue aspirin and statin therapy; ERIC completed for evaluation for paroxysmal atrial fibrillation; cardiology recommending to start patient on anticoagulation therapy for possible atrial fibrillation then cleared by neurology 03/05/2021 Patient is seen and evaluated with multiple family members at bedside; nursing staff and patient family reporting some deterioration in neurological status; patient evaluated by tele-neurology and a CT of the brain was ordered which reveals evolving right-sided cerebral infarct, without any evidence of hemorrhage or herniation; MRI of the brain is positive for right middle cerebral artery territory infarct. Neurology recommending to hold anticoagulation for 1 week following stroke; continue with PT/OT; case management to help with discharge planning; patient does report financial issues and has been recommended inpatient rehab 03/06/2021 Patient seen and evaluated in follow up this morning and continues to have left side upper and lower extremity weakness with left side facial droop. Patient is tolerating diet she states with no difficulty swallowing. Neurology and cardiology following closely. Patient continued on Aspirin, plavix, statin, and subcut heparin. Cardiology stating anticoagulation for possible atrial fibrillation that was noted on tele although patient is sinus rhythm at this time. Neurology recommends holding anticoagulant for 7 days given extent of infarct. Will continue subcutaneous heparin for now. Patient being evaluated by Dr. Gutierres for possible inpatient rehab at [facility]. Labs within normal limits today. Patient states she continues to have pain and heaviness noted in the left upper extremity and having to assist movement with right arm. Patient continues on 2L 02 via NC with oxygen saturation of 97-99% and will wean as tolerated. Review of systems: Constitutional: No reports of fatigue, fever, or chills Cardiovascular: No reports of chest pain or palpitations Respiratory: No reports of shortness of breath or cough GI: No reports of nausea, vomiting, reports no bowel movement since admission : No reports of dysuria or retention Neurovascular: reports of weakness and heaviness of the left upper and lower extremity All medications have been reviewed Physical exam: GENERAL: The patient is alert and oriented x3, not in any acute distress. Well developed, well nourished. HEENT: Pupils are round and equally reacting to light. EOMI. No scleral icterus. No conjunctival pallor. Normocephalic, atraumatic. No pharyngeal erythema. No thyromegaly. CARDIOVASCULAR: S1 and S2 present. No murmurs, rubs, or gallops. PULMONARY: Chest is clear to auscultation, no wheezing or crackles. ABDOMEN: Soft, nontender, nondistended, normoactive bowel sounds. No palpable organomegaly. MUSCULOSKELETAL: No joint swelling or deformity. EXTREMITIES: No cyanosis, clubbing, generalized edema of bilateral upper and lower extremities. NEUROLOGICAL: Cranial nerves are grossly intact. Motor 2-3/5 in left upper and lower extremities. Sensation is decreased in the left upper extremity. Meningeal signs are absent SKIN: No rashes. no petechiae. Assessment and plan: Acute right temporal, occipital and parietal stroke with left upper extremity paresthesia Large right middle cerebral artery infarction, as noted on repeat CT scan of the brain with no sign of hemorrhage or hemorrhagic transformation. Obesity with BMI of 34.9 Permissive hypertension Chronic interstitial lung disease GI prophylaxis DVT prophylaxis: subcut heparin Plan: Patient will continue with neuro checks and neurology following closely with car diology following as well. Possible inpatient rehab with DR. Gutierres being planned and awaiting updated PT/OT notes. Patient continues with aspirin and plavix along with subcutaneous heparin. Patient is sinus rhythm on the monitor. Patient continues on 2L via NC with 99% saturation and discussed with RN about weaning as tolerated. Patient denies shortness of breath or cough. Patient continues with left upper and lower extremity weakness. Encouraged increased activity as tolerated. Family at the bedside. Patient requesting paperwork to have her grand-daughter be power of county attorney for medical decisions. Social work and case management following. Authorization received for [facility] inpatient rehab and anticipate discharge to [place] in 24 hours. Objective - Vital Signs Vital signs: Vital Signs Temp 98.1 F 03/06/21 08:00 Pulse 98 03/06/21 08:00 Resp 18 03/06/21 08:00 BP 144/73 03/06/21 08:00 Pulse Ox 98 03/06/21 08:00 Intake & Output 03/05/21 03/06/21 03/06/21 18:59 06:59 18:59 Intake Total 700 Output Total 500 Balance 700 -500 Intake: IV 700 Sodium Chloride 0.9% 1, 700 000 ml @ 20 mls/hr IV . Q24H [facility] Rx#:[id number] Output: Urine 500 Other: Voiding Method External Catheter External Catheter External Catheter # Voids 2 1 - Labs CBC & Chem 7: 03/06/21 08:34 03/06/21 08:34
[2021-03-07] MEDS: ACETAMINOPHEN TAB 325 MG TAB PO PRN ×2 (03:00→10:20)
[2021-03-07] MEDS: ONDANSETRON 4 MG/2 ML VIAL IVP PRN (03:01)
[2021-03-07 08:51] VITALS: TEMP 98
[2021-03-07] MEDS: FAMOTIDINE 20 MG TAB PO SCH (08:52)
[2021-03-07] MEDS: CLOPIDOGREL 75 MG TAB PO SCH (08:52)
[2021-03-07] MEDS: CYANOCOBALAMIN 500 MCG TAB PO SCH (08:52)
[2021-03-07] MEDS: ASPIRIN 81 MG PO SCH (08:53)
[2021-03-07] MEDS: amLODIPine 5 MG TAB PO SCH (08:53)
[2021-03-07] MEDS: HEPARIN SODIUM,PORCINE/PF 5,000 UNIT/0.5 ML SYRINGE SQ SCH (08:53)
[2021-03-07] MEDS: SODIUM CHLORIDE 0.9% 1,000 ML IV SCH (10:18)
--- NOTE | 2021-03-07 12:29 | P.PN ---
Subjective Progress Note Date: 03/07/21 HISTORY OF PRESENT ILLNESS: This is a pleasant 65-year-old female past medical history significant for acid reflux and former nicotine dependence. She denies prior history of coronary artery disease and does not follow in the office with a nurse licensed practical. We have been asked to see in consultation for ERIC. She presented to the hospital with left arm loss of sensation. She underwent a CT of her brain that was unremarkable and subsequently an MRI which revealed a large right temporal, occipital and parietal lobe infarct with tiny satellite foci noted with no evidence of midline shift. She is seen and examined resting comfortably in bed with her daughters at the bedside. She is alert and oriented and able to move all of her extremities however she states she has no feeling or sensation in her left arm. She denies ever having had symptoms of chest discomfort, shortness of breath, dizziness or palpitations. She has never been diagnosed in the past with any sort of arrhythmia. EKG on arrival reveals sinus tachycardia heart rate of [address] or T wave abnormalities noted. Transthoracic echocardiogram performed revealed preserved LV systolic function with ejection fraction 55-60%. Laboratory data reviewed, CBC unremarkable, sodium 133, potas sium 3.8, creatinine 0.48, troponin negative 1, LDL 122, TSH 1.34. She has been initiated on aspirin 81 mg daily, atorvastatin 40 mg daily and Plavix 75 mg daily per neurology. Telemetry tracings reviewed, this morning at 6:30 to what appears to be atrial fibrillation. It was very brief. 03/04/2021 Patient underwent ERIC yesterday revealing normal appearance of left atrial appendage. Normal left ventricular size and systolic function. Mild mitral tricuspid and trace aortic regurgitation. Late minimal shunting across the interatrial septum with Valsalva maneuver, not documented on color. Normal appearance of the descending thoracic aorta. Patient examined at the bedside. Patient's family member at the bedside who states the patient appears to be doing slightly worse today and has having difficulty moving her left leg. Neurology is currently following. Telemetry reveals sinus mechanism. 03/05/2021 Patient examined this morning at the bedside. She denies chest pain or pressure. She denies short of breath. Telemetry reveals sinus mechanism. 03/06/2021 Patient examined this morning at the bedside. She denies chest pain or pressure. Denies shortness of breath. Telemetry reveals sinus mechanism. Patient continues to report left-sided weakness. CT of the brain completed yesterday reveals evolving mid posterior right middle cerebral artery distribution right parietal infarct. 03/07/2021 Patient examined this morning at the bedside. She denies chest pain or pre ssure. Denies shortness of breath. Telemetry reveals sinus mechanism. Anticoagulation remains on hold per neurology. PHYSICAL EXAM: VITAL SIGNS: Reviewed. GENERAL: Well-developed in no acute distress. NECK: Supple. No JVD or thyromegaly LUNGS: Respirations even and unlabored. Lungs essentially clear to auscultation bilaterally. HEART: Regular rate and rhythm. S1 and S2 heard. EXTREMITIES: No clubbing or cyanosis. Peripheral pulses intact. No lower extremity edema ASSESSMENT: Acute ischemic stroke, large right middle cerebral artery infarct Possible paroxysmal atrial fibrillation PLAN: Continue current cardiac medications Continue telemetry monitoring Neurology following Recommend anticoagulation for possible atrial fibrillation when cleared by neurology Further recommendations pending patient course Nurse practitioner note has been reviewed by physician. Signing provider agrees with the documented findings, assessment, and plan of care. Objective - Vital Signs Vital signs: Vital Signs Temp 98.0 F 03/07/21 08:00 Pulse 96 03/07/21 08:00 Resp 18 03/07/21 08:00 BP 139/81 03/07/21 08:00 Pulse Ox 99 03/07/21 08:00 Intake & Output 03/06/21 03/07/21 03/07/21 18:59 06:59 18:59 Intake Total 480 Output Total 300 300 Balance 180 -300 Weight 145 kg Intake: Oral 480 Output: Urine 300 300 Other: Voiding Method External Catheter External Catheter External Catheter # Bowel Movements 2 - Labs CBC & Chem 7: 03/06/21 08:34 03/06/21 08:34
--- NOTE | 2021-03-07 12:39 | P.DS ---
Providers Date of admission: 03/02/21 12:11 Expected date of discharge: 03/07/21 Attending physician: Kelechi Kumar Consults: 03/01/21 14:02 Consult Physician Routine Consulting Provider: Alessandro Perez Consult Reason/Comments: tia Do you want consulting provider notified?: Yes 03/02/21 10:56 Consult Physician Routine Consulting Provider: Yaneth Salcido Consult Reason/Comments: ERIC for large right stroke. Do you want consulting provider notified?: Yes 03/03/21 13:01 Consult Physician Routine Consulting Provider: Tony Gutierres Consult Reason/Comments: stroke. Needs inpatient rehab Do you want consulting provider notified?: Yes Primary care physician: Stated None Hospital Course: Final diagnosis Acute right temporal, occipital and parietal stroke with left upper extremity paresthesia Large right middle cerebral artery infarction, as noted on repeat CT scan of the brain with no sign of hemorrhage or hemorrhagic transformation. Obesity with BMI of 34.9 Permissive hypertension Chronic interstitial lung disease GI prophylaxis DVT prophylaxis: subcut heparin Discharge disposition Patient is being discharged in a stable condition with guarded prognosis to [facility] inpatient rehab for continued PT/OT therapy. Patient will follow-up with Dr. Gutierres in rehab and resources provided to follow-up with Dr. Ibarra in the outpatient setting once discharged from rehab. Anticoagulation is to be held per neurology for at least 7 days given extent of infarct. Total time taken is greater than 35 minutes. Hospital course Acute right temporal, occipital and parietal stroke with left upper extremity paresthesia 65 years old female with no significant past medical history, she is not on medication and she does not have PCP. 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. Presents with. Of confusion and left hand numbness since yesterday, she cannot feel her fingers. She denies any headache, blurred vision or slurred speech. As per daughter at bedside she was driving yesterday when she was confused although she was oriented to time, place and person but she is somewhat lost while driving. No dizziness or loss of consciousness. No weakness. No seizure-like activity. She fell about 2 months ago when she slipped on the floor without dizziness or syncope. Perfusion is improved currently but she still felt numb in her left upper extremity. No other symptoms like no chest pain or dyspnea, no change in urine or bowel habits. No fever. She denies smoking, alcohol or illicit tracts Vitals are stable, blood pressure is slightly elevated up to 191/83. Currently blood pressure is improved with systolic in 160s. Labs including CBC and INR are unremarkable. Sodium only slightly low at 133, creatinine at 0.4. Liver enzymes not elevated. Troponin less than 0.012. EKG shows sinus tachycardia at 107, QTC is 467, no significant ST-T changes Chest x-ray: No acute process. Chronic interstitial lung disease CT of the brain: No acute process. CTA of the brain: Minimal atherosclerotic changes of the left carotid bulb. Otherwise widely patent carotid and vertebral arteries of the neck . Head CTA showed no large vessel intracranial arterial occlusion. No sig nificant stenosis or aneurysmal changes In the emergency room patient was started on aspirin 81 mg. Also normal saline at 100 mL per hour, Lipitor and one-time dose of Plavix 300 mg 03/04/2021 Patient is seen and evaluated in room at bedside; underwent ERIC yesterday revealing normal-appearing left atrial appendage, normal left ventricular size and systolic function,; mild mitral tricuspid and trace aortic regurgitation; late to minimal shunting across interatrial septum with Valsalva maneuver Patient is recommended to continue aspirin and statin therapy; ERIC completed for evaluation for paroxysmal atrial fibrillation; cardiology recommending to start patient on anticoagulation therapy for possible atrial fibrillation then cleared by neurology 03/05/2021 Patient is seen and evaluated with multiple family members at bedside; nursing staff and patient family reporting some deterioration in neurological status; patient evaluated by tele-neurology and a CT of the brain was ordered which reveals evolving right-sided cerebral infarct, without any evidence of hemorrhage or herniation; MRI of the brain is positive for right middle cerebral artery territory infarct. Neurology recommending to hold anticoagulation for 1 week following stroke; continue with PT/OT; case management to help with discharge planning; patient does report financial issues and has been recommended inpatient rehab 03/06/2021 Patient seen and evaluated in follow up this morning and continues to have left side upper and lower extremity weakness with left side facial droop. Patient is tolerating diet she states with no difficulty swallowing. Neurology and cardiology following closely. Patient continued on Aspirin, plavix, statin, and subcut heparin. Cardiology stating anticoagulation for possible atrial f ibrillation that was noted on tele although patient is sinus rhythm at this time. Neurology recommends holding anticoagulant for 7 days given extent of infarct. Will continue subcutaneous heparin for now. Patient being evaluated by Dr. Gutierres for possible inpatient rehab at [facility]. Labs within normal limits today. Patient states she continues to have pain and heaviness noted in the left upper extremity and having to assist movement with right arm. Patient continues on 2L 02 via NC with oxygen saturation of 97-99% and will wean as tolerated. 03/07/2021 Patient is seen in follow-up with no acute overnight issues. She continues on 2 L via nasal cannula although oxygen saturation is 99-100% and patient states it makes her feel better. Discussed with nursing staff about weaning FiO2 and monitoring without oxygen. Patient continues to have extreme upper and lower left-sided weakness with heaviness noted of the left upper extremity. Patient continues on subcutaneous heparin along with aspirin and Plavix and statin and will continue for now as neurology had recommendations on holding starting anticoagulation orally for at least 7 days given the extent of the infarct as noted on MRI and CT. Patient will need close outpatient follow-up with neurology as well. Currently no reports of chest pain, shortness of breath, or palpitations. Patient is afebrile. No reports of nausea or vomiting and patient is tolerating tube feedings. Patient will be going to [facility] inpatient rehab today. GENERAL: The patient is alert and oriented x3, not in any acute distress. Well developed, well nourished. HEENT: Pupils are round and equally reacting to light. EOMI. No scleral icterus. No conjunctival pallor. Normocephalic, atraumatic. No pharyngeal erythema. No thyromegaly. CARDIOVASCULAR: S1 and S2 present. No murmurs, rubs, or gallops. PULMONARY: Chest is clear to auscultation, no wheezing or crackles. ABDOMEN: Soft, nontender, nondistended, normoactive bowel sounds. No palpable organomegaly. MUSCULOSKELETAL: No joint swelling or deformity. EXTREMITIES: No cyanosis, clubbing, generalized edema of bilateral upper and lower extremities. NEUROLOGICAL: Cranial nerves are grossly intact. Motor 2-3/5 in left upper and lower extremities. Sensation is decreased in the left upper extremity. Meningeal signs are absent SKIN: No rashes. no petechiae. On exam vital signs are stable. Cardio S1, S2 are muffled. Respiratory system shows diminished breath sounds at the bases with no wheezing or rhonchi noted. Abdomen is soft and nontender. Nervous system shows diffuse weakness with left side deficits noted. Please refer to medication reconciliation sheet for a list of medications. Patient Condition at Discharge: Stable Plan - Discharge Summary Discharge Rx Participant: No New Discharge Prescriptions: New Aspirin 81 mg PO DAILY chew Melatonin 10 mg PO HS tablet Simethicone Chew [Mylicon Chew] 80 mg PO QID PRN chew PRN Reason: Bloating amLODIPine [Norvasc] 5 mg PO DAILY tab Famotidine [Pepcid] 20 mg PO Q12HR tab Cyanocobalamin [Vitamin B-12] 1,000 mcg PO DAILY tab bisacodyL [Dulcolax] 10 mg RECTAL DAILY PRN supp PRN Reason: Constipation Heparin Sodium,Porcine [Heparin Sodium] 5,000 unit SQ Q12HR 7 Days #14 vial Atorvastatin [Lipitor] 40 mg PO HS tab Clopidogrel [Plavix] 75 mg PO DAILY tab Sennosides [Senokot] 8.6 mg PO BID PRN tab PRN Reason: Constipation Ondansetron Odt [Zofran Odt] 4 mg PO Q8HR PRN #12 tab PRN Reason: Nausea Continue Acetaminophen Tab [Tylenol] 650 mg PO Q4H PRN PRN Reason: Migraine Headache Discontinued [id number] [Excedrin] 2 tab PO DAILY PRN PRN Reason: Migraine Headache Naproxen Sodium [Aleve] 220 mg PO BID PRN PRN Reason: Migraine Headache Discharge Medication List Acetaminophen Tab [Tylenol] 650 mg PO Q4H PRN 03/01/21 [History] Aspirin 81 mg PO DAILY chew 03/07/21 [Rx] Atorvastatin [Lipitor] 40 mg PO HS tab 03/07/21 [Rx] Clopidogrel [Plavix] 75 mg PO DAILY tab 03/07/21 [Rx] Cyanocobalamin [Vitamin B-12] 1,000 mcg PO DAILY tab 03/07/21 [Rx] Famotidine [Pepcid] 20 mg PO Q12HR tab 03/07/21 [Rx] Heparin Sodium,Porcine [Heparin Sodium] 5,000 unit SQ Q12HR 7 Days #14 vial 03/07/21 [Rx] Melatonin 10 mg PO HS tablet 03/07/21 [Rx] Ondansetron Odt [Zofran Odt] 4 mg PO Q8HR PRN #12 tab 03/07/21 [Rx] Sennosides [Senokot] 8.6 mg PO BID PRN tab 03/07/21 [Rx] Simethicone Chew [Mylicon Chew] 80 mg PO QID PRN chew 03/07/21 [Rx] amLODIPine [Norvasc] 5 mg PO DAILY tab 03/07/21 [Rx] bisacodyL [Dulcolax] 10 mg RECTAL DAILY PRN supp 03/07/21 [Rx] Follow up Appointment(s)/Referral(s): Kevin Ibarra MD [REFERRING] - 1 Week Sage Mejia MD [Medical Doctor] - 1 Week Tony Gutierres MD [STAFF PHYSICIAN] - 1-2 Days Activity/Diet/Wound Care/Special Instructions: Patient is going to [facility] for inpatient rehab Continue heart healthy diet Continue with event monitor Patient will need outpatient neurology follow-up Patient to continue with subcutaneous heparin twice daily and per neurology recommendations needs to hold oral anticoagulation for at least 7 days given extent of CVA Wean FiO2 as tolerated Encouraged increase ambulation as tolerated Activity as tolerated Discharge Disposition: TRANSFER TO SNF/ECF
[2021-03-07 13:18] VITALS: BP 133/73; PULSE 84
--- NOTE | 2021-04-04 13:50 | EM ---
EVENT MONITOR THIRTY-DAY EVENT MONITOR: AGE:: 65 SEX:: Female. INDICATION: TIA FINDINGS: This event monitor shows normal sinus rhythm with episodes of sinus tachycardia, PVCs, and short self-limited runs of SVT. CONCLUSIONS: As above. MMODL / IJN: [id number] /
== END 2021-03-07 13:41 | DRG 65 ==
LOC: EC 11:37 → 6NMEDSUR 14:02 → OBSVTOIN 03-02 12:11 → 3SCARD 03-02 14:33
PROVIDERS: ADMIT Internal Medicine; ATTEND Internal Medicine
PROC: B246ZZ4 Ultrasonography of Right and Left Heart, Transesophageal (ICD-10-PCS; principal; 2021-03-03 10:30)
DX: I63.511 Cerebral infarction due to unspecified occlusion or stenosis of right middle cerebral artery (principal); G93.40 Encephalopathy, unspecified; J84.9 Interstitial pulmonary disease, unspecified; G81.02 Flaccid hemiplegia affecting left dominant side; I25.10 Atherosclerotic heart disease of native coronary artery without angina pectoris; K21.9 Gastro-esophageal reflux disease without esophagitis; I65.23 Occlusion and stenosis of bilateral carotid arteries; I08.0 Rheumatic disorders of both mitral and aortic valves; E66.9 Obesity, unspecified; M50.223 Other cervical disc displacement at C6-C7 level; I10 Essential (primary) hypertension; I48.0 Paroxysmal atrial fibrillation; R00.0 Tachycardia, unspecified; M47.812 Spondylosis without myelopathy or radiculopathy, cervical region; M48.02 Spinal stenosis, cervical region; R29.810 Facial weakness; Z91.81 History of falling; Z68.34 Body mass index [BMI] 34.0-34.9, adult; Z79.02 Long term (current) use of antithrombotics/antiplatelets; Z79.82 Long term (current) use of aspirin; Z79.899 Other long term (current) drug therapy; Z87.442 Personal history of urinary calculi; Z87.891 Personal history of nicotine dependence
CPT/HCPCS: 36415; 70450; 70496; 70498; 70553; 71046; 72156; 80048; 80053; 80061; 82607; 82746; 82747; 83036; 84443; 84484; 85025; 85610; 85730; 93005; 93270; 93306; 93312; 93320; 93325; 95819

== ENCOUNTER 2021-07-04 09:55 | Emergency (ER) | payer MEDICARE ==
[2021-07-04 09:59] VITALS: TEMP 98.2
[2021-07-04] MEDS ORDERED: MORPHINE SULFATE 4 MG/ML SYRINGE IM STA (10:08)
--- NOTE | 2021-07-04 10:41 | CT ---
EXAMINATION TYPE: CT brain wo con DATE OF EXAM: 07/04/2021 HISTORY: High blood pressure with headache. Recent stroke March [address] DLP: 1044.4 mGycm. Automated Exposure Control for Dose Reduction was Utilized. TECHNIQUE: CT scan of the head is performed without contrast. COMPARISON: CT brain March 05, 2021 FINDINGS: There is no acute intracranial hemorrhage or midline shift identified. Old infarct in the right parietal lobe corresponds to the area of acute ischemia in February. Mild ventricular and sulcal prominence. Mild low-attenuation in the periventricular white matter. Patchy cerumen in the right e xternal auditory canal. The globes are intact and the visualized sinuses are clear. IMPRESSION: No acute intracranial hemorrhage or midline shift. There is mild diffuse age-related ce rebral atrophy and chronic small vessel ischemic Change redemonstrated. Now Old infarct high right p arietal lobe is noted.
[2021-07-04 10:52] VITALS: BP 136/70; PULSE 78; RESP 18
--- NOTE | 2021-07-04 10:54 | ED ---
General Adult HPI - General Chief complaint: Recheck/Abnormal Lab/Rx Stated complaint: High BP Time Seen by Provider: 07/04/21 10:02 Source: patient, RN notes reviewed Mode of arrival: ambulatory Limitations: no limitations - History of Present Illness Initial comments: 65-year-old female with a past medical history of GERD presents to the emergency room for chief complaint of high blood pressure. Patient has a history of ischemic stroke in February of this year. The only member was very concerned because her blood pressure was 170/90 at home. Upon arrival to the emergency room blood pressure is much improved. Patient did take her medication today. Patient is also complaining of a headache that she noticed when she woke up one hour ago. She does get headaches from time to time.Patient has no other complaints at this time including shortness of breath, chest pain, abdominal pain, nausea or vomiting, headache, or visual changes. - Related Data Home Medications Medication Instructions Recorded Confirmed Acetaminophen Tab [Tylenol] 650 mg PO Q4H PRN 03/01/21 03/01/21 Previous Rx's Medication Instructions Recorded Aspirin 81 mg PO DAILY chew 03/07/21 Atorvastatin [Lipitor] 40 mg PO HS tab 03/07/21 Clopidogrel [Plavix] 75 mg PO DAILY tab 03/07/21 Cyanocobalamin [Vitamin B-12] 1,000 mcg PO DAILY tab 03/07/21 Famotidine [Pepcid] 20 mg PO Q12HR tab 03/07/21 Heparin Sodium,Porcine [Heparin 5,000 unit SQ Q12HR 7 Days #14 vial 03/07/21 Sodium] Melatonin 10 mg PO HS tablet 03/07/21 Ondansetron Odt [Zofran Odt] 4 mg PO Q8HR PRN #12 tab 03/07/21 Sennosides [Senokot] 8.6 mg PO BID PRN tab 03/07/21 Simethicone Chew [Mylicon Chew] 80 mg PO QID PRN chew 03/07/21 amLODIPine [Norvasc] 5 mg PO DAILY tab 03/07/21 bisacodyL [Dulcolax] 10 mg RECTAL DAILY PRN supp 03/07/21 Allergies Allergy/AdvReac Type Severity Reaction Status Date / Time No Known Allergies Allergy Verified 07/04/21 09:59 Review of Systems ROS Statement: Those systems with pertinent positive or pertinent negative responses have been documented in the HPI. ROS Other: All systems not noted in ROS Statement are negative. Past Medical History Past Medical History: No Reported History, GERD/Reflux Additional Past Medical History / Comment(s): STATES ACID REFLUX AND KIDNEY STONES History of Any Multi-Drug Resistant Organisms: None Reported Past Surgical History: Section Additional Past Surgical History / Comment(s): KIDNEY STONES Past Anesthesia/Blood Transfusion Reactions: No Reported Reaction Past Psychological History: No Psychological Hx Reported Smoking Status: Former smoker Past Alcohol Use History: None Reported Past Drug Use History: None Reported General Exam Limitations: no limitations General appearance: alert, in no apparent distress Head exam: Present: atraumatic Eye exam: Present: normal appearance, PERRL, EOMI. Absent: scleral icterus, conjunctival injection ENT exam: Present: normal exam, mucous membranes moist Neck exam: Present: normal inspection, full ROM. Absent: tenderness Respiratory exam: Present: normal lung sounds bilaterally. Absent: respiratory distress, wheezes Cardiovascular Exam: Present: regular rate, normal rhythm, normal heart sounds GI/Abdominal exam: Present: soft, normal bowel sounds. Absent: distended, tenderness Neurological exam: Present: alert, oriented X3, other (GCS 15) Course Vital Signs 07/04/21 09:56 Temperature 98.2 F Pulse Rate 87 Respiratory 20 Rate Blood Pressure 126/85 O2 Sat by Pulse 100 Oximetry Medical Decision Making - Medical Decision Making Vitals are stable. Blood pressure 120s over 80s. No focal neurologic deficit. She has chronic left-sided weakness from previous stroke. Patient was given pain medication and CT was obtained. This showed no acute intracranial hemorrhage or midline shift. Old infarct noted. At this time patient is stable for follow-up. Will return here for any worsening symptoms. Disposition Clinical Impression: Headache Disposition: HOME SELF-CARE Condition: Good Instructions (If sedation given, give patient instructions): Acute Headache (ED) Additional Instructions: Please follow-up with your primary care doctor. In the meantime keep a log of your blood pressures. Return to the emergency room for any worsening symptoms. Is patient prescribed a controlled substance at d/c from ED?: No Referrals: Evin Villalobos MD [Primary Care Provider] - 1-2 days Time of Disposition: 10:53
== END 2021-07-04 11:12 | disposition home or self-care (01) ==
LOC: EC 09:55
DX: R51.9 Headache, unspecified (principal); R03.0 Elevated blood-pressure reading, without diagnosis of hypertension; Z87.891 Personal history of nicotine dependence
CPT/HCPCS: 70450; 99284; 96372; J2270

== ENCOUNTER 2024-01-07 12:20 | Emergency (ER) | payer MEDICARE, OTHER ==
[2024-01-07 12:33] VITALS: RESP 18
--- NOTE | 2024-01-07 12:36 | ED ---
Female Urogenital HPI - General Chief complaint: Urogenital Stated complaint: Blood in urine, pain in R side Time Seen by Provider: 01/07/24 12:36 Source: patient, RN notes reviewed Mode of arrival: ambulatory Limitations: physical limitation - History of Present Illness Initial comments: This is a 68-year-old female with a history of CVA and subsequent neurological deficits of the left side who presents to the emergency department chief complaint of hematuria over the past month. Patient went to urgent care this morning where they completed a urine sample and recommended follow up at ER for further evaluation of hematuria. She was treated with antibiotics a few weeks ago from her primary care provider with concern for urinary tract infection. She endorses foul odor of her urine. States that she has Lasix and is unaware if she has been going to the restroom more frequently. She denies passage of clots in her urine. Denies hematochezia or dark/tarry stools. No symptoms of nausea, fevers, weakness, fatigue. - Related Data Home Medications Medication Instructions Recorded Confirmed Acetaminophen Tab [Tylenol] 650 mg PO Q4H PRN 03/01/21 03/01/21 Previous Rx's Medication Instructions Recorded Aspirin 81 mg PO DAILY chew 03/07/21 Atorvastatin [Lipitor] 40 mg PO HS tab 03/07/21 Clopidogrel [Plavix] 75 mg PO DAILY tab 03/07/21 Cyanocobalamin [Vitamin B-12] 1,000 mcg PO DAILY tab 03/07/21 Famotidine [Pepcid] 20 mg PO Q12HR tab 03/07/21 Heparin Sodium,Porcine (1 ml) 5,000 unit SQ Q12HR 7 Days #14 vial 03/07/21 [Heparin Sodium] Melatonin 10 mg PO HS tablet 03/07/21 Ondansetron Odt [Zofran Odt] 4 mg PO Q8HR PRN #12 tab 03/07/21 Sennosides [Senokot] 8.6 mg PO BID PRN tab 03/07/21 Simethicone Chew [Mylicon Chew] 80 mg PO QID PRN chew 03/07/21 amLODIPine [Norvasc] 5 mg PO DAILY tab 03/07/21 bisacodyL [Dulcolax] 10 mg RECTAL DAILY PRN supp 03/07/21 Ondansetron Odt [Zofran Odt] 4 mg PO Q8HR PRN #10 tab 01/07/24 Tamsulosin [Flomax] 0.4 mg PO DAILY #7 cap 01/07/24 Allergies Allergy/AdvReac Type Severity Reaction Status Date / Time No Known Allergies Allergy Verified 07/04/21 09:59 Review of Systems ROS Statement: Those systems with pertinent positive or pertinent negative responses have been documented in the HPI. ROS Other: All systems not noted in ROS Statement are negative. Past Medical History Past Medical History: CVA/TIA, GERD/Reflux Additional Past Medical History / Comment(s): STATES ACID REFLUX AND KIDNEY STONES, CVA 2020 causing numbness and weakness of left side History of Any Multi-Drug Resistant Organisms: None Reported Past Surgical History: Section Additional Past Surgical History / Comment(s): KIDNEY STONES Past Anesthesia/Blood Transfusion Reactions: No Reported Reaction Past Psychological History: No Psychological Hx Reported Smoking Status: Former smoker Past Alcohol Use History: None Reported Past Drug Use History: None Reported General Exam Limitations: physical limitation General appearance: alert, in no apparent distress Head exam: Present: atraumatic, normocephalic, normal inspection Eye exam: Present: normal appearance, PERRL, EOMI. Absent: scleral icterus, conjunctival injection, periorbital swelling ENT exam: Present: normal exam, mucous membranes moist Neck exam: Present: normal inspection. Absent: tenderness, meningismus, lymphadenopathy Respiratory exam: Present: normal lung sounds bilaterally. Absent: respiratory distress, wheezes, rales, rhonchi, stridor Cardiovascular Exam: Present: regular rate, normal rhythm, normal heart sounds. Absent: systolic murmur, diastolic murmur, rubs, gallop, clicks GI/Abdominal exam: Present: soft, tenderness (supapubic), normal bowel sounds. Absent: guarding, rebound, rigid Extremities exam: Present: normal inspection, full ROM, normal capillary refill. Absent: tenderness, pedal edema, joint swelling, calf tenderness Back exam: Present: normal inspection, CVA tenderness (R) Neurological exam: Present: other (deficits on left side hx of CVA) Skin exam: Present: warm, dry, intact, normal color. Absent: rash Course Vital Signs 01/07/24 01/07/24 12:29 14:10 Temperature 98.3 F 98.2 F Pulse Rate 91 84 Respiratory 18 18 Rate Blood Pressure 134/69 137/63 O2 Sat by Pulse 99 98 Oximetry Medical Decision Making - Medical Decision Making Was pt. sent in by a medical professional or institution (, PA, MANAGER SPEECH, urgent care, hospital, or group home...) When possible be specific @ -No Did you speak to anyone other than the patient for history (EMS, parent, family, police, friend...)? What history was obtained from this source @ -No Did you review nursing and triage notes (agree or disagree)? Why? @ -I reviewed and agree with nursing and triage notes Were old charts reviewed (outside hosp., previous admission, EMS record, old EKG, old radiological studies, urgent care reports/EKG's, group home records)? Report findings @ -Reviewed the patient's chart from 07/04/2021 where she reported to the emergency department for hypertension and headache, workup obtained including blood work and CT which were unremarkable patient stable for discharge with follow-up. Differential Diagnosis (chest pain, altered mental status, abdominal pain women, abdominal pain men, vaginal bleeding, weakness, fever, dyspnea, syncope, headache, dizziness, GI bleed, back pain, seizure, CVA, palpatations, mental health, musculoskeletal)? @ -Differential Abdominal Pain Women: Appendicitis, Cholecystitis, diverticulosis, ischemic bowel, pancreatitis, hepatitis, UTI, gastroenteritis, AAA, incarcerated hernia, bowel obstruction, constipation, inflammatory bowel, hepatitis, peptic ulcer disease, splenic infarction, perforated viscus, vulvitis, ovarian torsion, PID, kidney stone, placenta abruption, this is not meant to be an all-inclusive list EKG interpreted by me (3pts min.). @ -none X-rays interpreted by me (1pt min.). @ -None done CT interpreted by me (1pt min.). @ -CT of the abdomen pelvis without contrast reveals a mild left hydronephrosis with an obstructing 10 x 7 mm calculus at the UPJ and a nonobstructive right renal calculus. U/S interpreted by me (1pt. min.). @ -None done What testing was considered but not performed or refused? (CT, X-rays, U/S, labs)? Why? @ -None What meds were considered but not given or refused? Why? @ -None Did you discuss the management of the patient with other professionals (professionals i.e. , PA, MANAGER SPEECH, lab, RT, psych nurse, clinical social work aide, formula room worker, teacher, chief media officer, skilled nursing case manager)? Give summary @ -No Was smoking cessation discussed for >3mins.? @ -No Was critical care preformed (if so, how long)? @ -No Were there social determinants of health that impacted care today? How? (Homel essness, low income, unemployed, alcoholism, drug addiction, transportation, low edu. Level, literacy, decrease access to med. care, shelter, rehab)? @ -No Was there de-escalation of care discussed even if they declined (Discuss DNR or withdrawal of care, Hospice)? DNR status @ -No What co-morbidities impacted this encounter? (DM, HTN, Smoking, COPD, CAD, Cancer, CVA, ARF, Chemo, Hep., AIDS, mental health diagnosis, sleep apnea, morbid obesity)? @ -None Was patient admitted / discharged? Hospital course, mention meds given and route, prescriptions, significant lab abnormalities, going to OR and other pertinent info. @Discharge. 68-year-old female with right flank and suprapubic tenderness. On examination patient is noted to have right flank and abdominal tenderness with no signs of rebound or rigidity. Patient will be started on IV in addition to blood work, urinalysis, and CT imaging obtained. Patient was offered pain medication and antinausea medication which she declines at this time. Patient's CBC, CMP unremarkable, urinalysis reveals a bloody appearance with greater than 182 red blood cells and unable to complete urine chemistry due to gross hematuria. . Female with a obstructing 5 x 7 mm calculus of the right ureteropelvic junction. Due to patient's vitals being stable and kidney function normal. She will be discharged home with Flomax and a referral to urology. All questions answered at bedside and strict return parameters discussed with the patient which she verbalized understanding. Case discussed with Dr. Louise Undiagnosed new problem with uncertain prognosis? @ -No Drug Therapy requiring intensive monitoring for toxicity (Heparin, Nitro, Insulin, Cardizem)? @ -No Were any procedures done? @ -No Diagnosis/symptom? @ -Nephrolithiasis, hematuria Acute, or Chronic, or Acute on Chronic? @ -Acute Uncomplicated (without systemic symptoms) or Complicated (systemic symptoms)? @ -uncomplicated Side effects of treatment? @ -No Exacerbation, Progression, or Severe Exacerbation? @ -No Poses a threat to life or bodily function? How? (Chest pain, [place], [place], pneumonia, PE, COPD, DKA, ARF, appy, cholecystitis, CVA, Diverticulitis, Homicidal, Suicidal, threat to staff... and all critical care pts) @ -No - Lab Data Result diagrams: 01/07/24 12:57 01/07/24 12:57 Lab Results 01/07/24 01/07/24 01/07/24 Range/Units 12:57 12:57 12:57 WBC 7.7 (3.8-10.6) k/uL RBC 4.23 (3.80-5.40) m/uL Hgb 11.9 (11.4-16.0) gm/dL Hct 38.9 (34.0-46.0) % MCV 91.9 (80.0-100.0) fL MCH 28.2 (25.0-35.0) pg MCHC 30.7 L (31.0-37.0) g/dL RDW 14.9 (11.5-15.5) % Plt Count 342 (150-450) k/uL MPV 7.8 Neutrophils % 62 % Lymphocytes % 26 % Monocytes % 6 % Eosinophils % 5 % Basophils % 1 % Neutrophils # 4.7 (1.3-7.7) k/uL Lymphocytes # 2.0 (1.0-4.8) k/uL Monocytes # 0.5 (0-1.0) k/uL Eosinophils # 0.4 (0-0.7) k/uL Basophils # 0.1 (0-0.2) k/uL Hypochromasia Slight Sodium 141 (137-145) mmol/L Potassium 4.2 (3.5-5.1) mmol/L Chloride 110 H (98-107) mmol/L Carbon Dioxide 25 (22-30) mmol/L Anion Gap 6 mmol/L BUN 14 (7-17) mg/dL Creatinine 0.53 (0.52-1.04) mg/dL Est GFR (CKD-EPI)AfAm >90 (>60 ml/min/1.73 sqM) Est GFR (CKD-EPI)NonAf >90 (>60 ml/min/1.73 sqM) Glucose 99 (74-99) mg/dL Calcium 8.9 (8.4-10.2) mg/dL Total Bilirubin 0.8 (0.2-1.3) mg/dL AST 35 (14-36) U/L ALT 23 (4-34) U/L Alkaline Phosphatase 90 (38-126) U/L Total Protein 6.7 (6.3-8.2) g/dL Albumin 3.7 (3.5-5.0) g/dL Urine Appearance Bloody H (Clear) Urine RBC >182 H (0-5) /hpf Urine WBC 11 H (0-5) /hpf Ur Squamous Epith Cells 13 H (0-4) /hpf Urine Mucus Many H (None) /hpf Disposition Clinical Impression: Hematuria, Nephrolithiasis Disposition: HOME SELF-CARE Condition: Good Instructions (If sedation given, give patient instructions): Kidney Stones (ED) Additional Instructions: Return to the emergency department if your symptoms worsen or improve. Take Flomax as prescribed and Zofran as needed for nausea. Follow-up with provided urology referral. Prescriptions: Tamsulosin [Flomax] 0.4 mg PO DAILY #7 cap Ondansetron Odt [Zofran Odt] 4 mg PO Q8HR PRN #10 tab PRN Reason: Nausea Is patient prescribed a controlled substance at d/c from ED?: No Referrals: Chava Live DO [Primary Care Provider] - 1-2 days Luis Enrique Rick MD [STAFF PHYSICIAN] - 1-2 days Time of Disposition: 14:01
[2024-01-07 13:17] LABS: Basophils # (A) 0.1 k/uL (0-0.2); Basophils % (A) 1 %; Eosinophils # (A) 0.4 k/uL (0-0.7); Eosinophils % (A) 5 %; HCT 38.9 % (34.0-46.0); HGB 11.9 gm/dL (11.4-16.0); Hypochromasia Slight; Lymphocytes % (A) 26 %; MCH 28.2 pg (25.0-35.0); MCHC 30.7 g/dL (31.0-37.0); MCV 91.9 fL (80.0-100.0); Mean Platelet Volume 7.8; Monocytes # (A) 0.5 k/uL (0-1.0); Monocytes % (A) 6 %; Neutrophils # (A) 4.7 k/uL (1.3-7.7); Neutrophils % (A) 62 %; Platelet Count 342 k/uL (150-450); RBC 4.23 m/uL (3.80-5.40); RDW 14.9 % (11.5-15.5); WBC 7.7 k/uL (3.8-10.6)
[2024-01-07 13:33] LABS: ALT 23 U/L (4-34); AST 35 U/L (14-36); African American GFR (CKD) >90 (>60 ml/min/1.73 sqM); Albumin 3.7 g/dL (3.5-5.0); Alkaline Phosphatase 90 U/L (38-126); Anion Gap 6 mmol/L; Blood Urea Nitrogen 14 mg/dL (7-17); Calcium 8.9 mg/dL (8.4-10.2); Carbon Dioxide 25 mmol/L (22-30); Chloride 110 mmol/L (98-107); Glucose 99 mg/dL (74-99); Non-African American GFR(CKD) >90 (>60 ml/min/1.73 sqM); Potassium 4.2 mmol/L (3.5-5.1); Sodium 141 mmol/L (137-145); Total Bilirubin 0.8 mg/dL (0.2-1.3); Total Protein 6.7 g/dL (6.3-8.2)
[2024-01-07 13:44] LABS: Mucus,Urine Many /hpf; RBC,Urine >182 /hpf (0-5); Squamous Epithelial Cell,Urine 13 /hpf (0-4); WBC,Urine 11 /hpf (0-5)
[2024-01-07 13:45] LABS: Appearance,Urine Bloody (Clear)
--- NOTE | 2024-01-07 13:45 | CT ---
EXAMINATION TYPE: CT abdomen pelvis wo con CT DLP: 1258 mGycm, Automated exposure control for dose reduction was used. DATE OF EXAM: 01/07/2024 1:32 PM COMPARISON: None CLINICAL INDICATION:Female, 68 years old with history of hematuria, right flank and ab pain; TECHNIQUE: Standard CT of the abdomen and pelvis without IV or oral contrast. Lack of IV or oral co ntrast limits evaluation of solid and hollow organ viscera. Coronal and sagittal reformats were perfo rmed. FINDINGS: LOWER CHEST: Lung bases are clear. Mildly prominent heart. ABDOMEN LIVER: Unremarkable GALLBLADDER AND BILE DUCTS: Unremarkable. PANCREAS: Fatty infiltration most prominent within the head and uncinate process. SPLEEN: Unremarkable. ADRENAL GLANDS: Unremarkable. KIDNEYS AND URETERS: No right hydronephrosis. Nonobstructive right renal calculus. Mild left hydronep hrosis with an obstructing 10 x 7 mm calculus at the ureteropelvic junction. Left renal 2.4 cm cyst. PELVIS BLADDER: Incompletely distended but grossly unremarkable. REPRODUCTIVE: Uterus appears surgically absent. ABDOMEN & PELVIS STOMACH AND BOWEL: Small hiatal hernia, duodenum is unremarkable. Distal colonic diverticulosis. No s urrounding inflammatory changes. No focal bowel wall thickening. No evidence of bowel obstruction. Hy perdense material identified within the cecum. The appendix is within normal limits. PERITONEUM: No evidence of pneumoperitoneum. Trace free fluid in the pelvis. VASCULATURE: Mild atherosclerotic calcifications are present throughout the abdominal aorta and its b ranches. No evidence of aortic aneurysm. Multiple pelvic phleboliths. MUSCULOSKELETAL: No acute osseous abnormalities LYMPH NODES: No gross evidence for lymphadenopathy. SOFT TISSUE/ABDOMINAL WALL: Small fat filled umbilical hernia. IMPRESSION: 1. Mild left hydronephrosis with an obstructing 10 x 7 mm calculus at the ureteropelvic junction. 2. Nonobstructive right renal calculus. 3. Colonic diverticulosis without evidence for acute diverticulitis.
[2024-01-07 14:15] VITALS: BP 137/63; PULSE 84; TEMP 98.2
== END 2024-01-07 14:15 | disposition home or self-care (01) ==
LOC: EC 12:20
DX: K57.30 Diverticulosis of large intestine without perforation or abscess without bleeding (principal); N13.2 Hydronephrosis with renal and ureteral calculous obstruction; Z87.891 Personal history of nicotine dependence
CPT/HCPCS: 36415; 74176; 80053; 81001; 85025; 99284

== ENCOUNTER → 2024-02-04 | Outpatient (CLI) | payer MEDICARE, OTHER ==
--- NOTE | 2024-02-04 12:13 | XR ---
EXAMINATION TYPE: XR KUB DATE OF EXAM: 02/04/2024 10:23 AM CLINICAL INDICATION:Female, 68 years old with history of N20.0 calculus; COMPARISON: None. TECHNIQUE: One radiographic view of the abdomen was obtained. FINDINGS: The bowel gas pattern is nonspecific without dilated loops of small or large bowel. . Fecal material and gas are demonstrated throughout the colon and rectum. There is no evidence for organome valentino or pneumoperitoneum. The osseous structures are intact. Renal calculi measuring up to 5 mm proj ects over the left renal pelvis. Multilevel degeneration with disc space narrowing osteophyte formati on.. IMPRESSION: Possible left renal pelvis calculi measuring up to 5 mm.
== END | disposition home or self-care (01) ==
LOC: RADXRMAIN 10:08
PROVIDERS: ATTEND Urology
DX: N20.0 Calculus of kidney (principal)
CPT/HCPCS: 74018

== ENCOUNTER 2024-03-11 07:18 | Day surgery (SDC) | payer MEDICARE, OTHER ==
[2024-03-11] MEDS ORDERED: LACTATED RINGERS 1,000 ML BAG ONE (08:18)
[2024-03-11] MEDS ORDERED: DEXAMETHASONE SOD PHOSPHATE 4 MG/ML 1 ML VIAL ONE (08:30)
[2024-03-11] MEDS ORDERED: ONDANSETRON 4 MG/2 ML VIAL ONE (08:30)
[2024-03-11] MEDS ORDERED: MIDAZOLAM 2 MG/2 ML VIAL ONE (09:13)
[2024-03-11] MEDS ORDERED: fentaNYL (PF) 50 MCG/ML 2 ML AMP ONE (09:13)
[2024-03-11] MEDS ORDERED: SUCCINYLCHOLINE CHLORIDE 200 MG/10 ML VIAL IV ONE (09:13)
[2024-03-11] MEDS ORDERED: ROCURONIUM 10 MG/ML (5 ML VIAL) IV ONE (09:13)
[2024-03-11] MEDS ORDERED: LIDOCAINE 1% INJ 10MG/ML (20 ML MDV) ONE (09:13)
[2024-03-11] MEDS ORDERED: NEOSTIGMINE 1 MG/ML 10 ML VIAL ONE (09:13)
[2024-03-11] MEDS ORDERED: GLYCOPYRROLATE 0.2 MG/ML 2 ML VIAL ONE (09:13)
[2024-03-11] MEDS ORDERED: PROPOFOL 10 MG/ML 20 ML VIAL IV ONE (09:13)
--- NOTE | 2024-04-09 15:07 | OP ---
OPERATIVE REPORT DATE OF SERVICE : PREOPERATIVE DIAGNOSIS: Left ureteral stone. POSTOPERATIVE DIAGNOSIS: Left ureteral stone. PROCEDURES: Cysto left ureteroscopy, laser lithotripsy. INDICATION: Elysia Rollins is 68. She has a 10 mm UPJ stone causing colic. She comes for ureteroscopy and laser lithotripsy. DESCRIPTION OF PROCEDURE: The patient was brought to the operating suite, given general anesthesia, placed in lithotomy position. A sterile prep and drape, cystoscopy and 21-[place] sheath, identifies a normal urethra and normal bladder mucosa. Both ureteral orifices identified. The left ureter was intubated with 0.035 wire passed up by the stone in the UPJ. Over the wire, we then passed an 11/13-[place] reentry sheath. The inner sheath was removed. Through the outer sheath, we passed the flexible ureteroscope to the stone. With a 275 micron laser probe, the stone was dusted so they can pass without difficulty. There were no notable fragments to basket. I elected not to leave a stent as there was no significant edema. The ureteroscope was removed. The bladder was drained. The patient was awakened, returned to recovery room in good condition. She will be discharged home upon recovery and follow up in the office in 1 week. MMODL / IJN: [id number] /
--- NOTE | 2024-04-13 09:28 | HP ---
HISTORY AND PHYSICAL DIAGNOSIS: Left ureteropelvic junction stone. PROCEDURE: To be performed, left ureteroscopy and laser lithotripsy. HISTORY OF PRESENT ILLNESS: Ms. Rollins is a 68-year-old female, sent to the emergency room because of a 10 x 7 mm left UPJ stone with intermittent flank pain. She has passed a stone some 20 years ago. She was evaluated and her x-rays were reviewed. She has the notable stone in the left UPJ. She has been given treatment options including spontaneous passage, shockwave lithotripsy, ureteroscopy, or percutaneous nephrostolithotomy. She comes for left ureteroscopy and laser lithotripsy. ALLERGIES: This patient has no allergies. MEDICATIONS: 1. Gabapentin 100 mg daily p.r.n. 2. Stool softener, Colace 100 mg daily. 3. Amlodipine 5 mg daily. 4. Eliquis 5 mg daily. 5. Levetiracetam 1000 mg daily. 6. Atorvastatin 40 mg daily. 7. Sertraline 50 mg daily. 8. Vitamin. MEDICAL PROBLEMS: Includes stroke, seizures, and history of kidney stones. SURGICAL HISTORY: Noncontributory. REVIEW OF SYSTEMS: Negative from a urinary tract standpoint. PHYSICAL EXAMINATION: VITAL SIGNS: She is 231 pounds and 65 inches. Blood pressure 120/76 and pulse 84. HEENT: Clear. CHEST: Clear to auscultation. HEART: Without murmur or gallop. ABDOMEN: Soft without mass or organomegaly. EXTREMITIES: No edema. NEUROLOGICAL: Weak left side. She walks with a walker. IMPRESSION: This patient has a left ureteropelvic junction calculus. Because of her anticoagulation, which she is going to go off, she comes for left ureteroscopy with laser lithotripsy. Risks and complications have been outlined. MMODL / IJN: [id number] /
--- NOTE | 2024-04-13 13:44 | XR ---
Patient: Elysia Rollins Ordering Physician: Unknown, Unknown ID: [id number] Phone, Pager: Phone: N/A Pager: N/A : [phone] Age/Gender: 68Y, F Primary Location: N/A Procedure: XR KUB Study Date: 02/26 7:34:00 AM EXAMINATION TYPE: XR KUB DATE OF EXAM: 03/21/2024 1:14 PM CLINICAL INDICATION: Calculus. Operative COMPARISON: 02/04/2024 TECHNIQUE: One radiographic view of the abdomen was obtained. FINDINGS: The bowel gas pattern is nonspecific without dilated loops of small or large bowel. . Fecal material and gas are demonstrated throughout the colon and rectum. There is no evidence for organomegaly or pneumoperitoneum. The osseous structures are intact. Left renal calculus measuring up to 8 mm. This projects over the renal pelvis. IMPRESSION: 1. Similar left ureteropelvic calculus measuring 8 mm. 2. Nonspecific bowel gas pattern without radiographic evidence for acute process.
--- NOTE | 2024-04-30 10:36 | FL ---
EXAMINATION TYPE: FL guidance operating room DATE OF EXAM: 04/07/2024 8:22 AM COMPARISON: Pre Operative Images if available both CT/MRI or plain film CLINICAL INDICATION: Female, 68 years old with history of LEFT RENAL CALCULI; TECHNIQUE: FL guidance operating room, multiple fluoroscopic images provided for procedure. Total fluoroscopy time: 10 seconds Total submitted images to PACS: 6 DAP: [id number] mGym2 Gycm2 uGym2 cGycm2 or equivalent. FINDINGS: Fluoroscopic images taken for renal stone. Renal stone identified projecting over the renal sinus. No evidence of pneumoperitoneum. Multilevel degeneration changes of the spine. IMPRESSION: 1. No evidence for intraoperative complication. 2. Please see the operative/procedural note for further details. [facility], , 04/30/2024 10:33 AM
== END 2024-03-11 11:20 | disposition home or self-care (01) ==
LOC: OR 07:18
PROVIDERS: ATTEND Urology
DX: N20.1 Calculus of ureter (principal); I10 Essential (primary) hypertension; K21.9 Gastro-esophageal reflux disease without esophagitis; R56.9 Unspecified convulsions; I69.354 Hemiplegia and hemiparesis following cerebral infarction affecting left non-dominant side; Z87.442 Personal history of urinary calculi; Z79.899 Other long term (current) drug therapy; Z79.01 Long term (current) use of anticoagulants
CPT/HCPCS: 74018

== ENCOUNTER 2024-05-05 08:21 | Day surgery (SDC) | payer MEDICARE, OTHER ==
[2024-05-05] MEDS: LACTATED RINGERS 1,000 ML IV SCH (08:57)
[2024-05-05] MEDS: LIDOCAINE 1% (10MG/ML) FOR IV START INTRADERMA STA (08:58)
[2024-05-05] MEDS: IV FLUID CONTINUATION 1,000 ML IV ONE (08:58)
[2024-05-05 09:06] VITALS: RESP 16; TEMP 97.9
[2024-05-05] MEDS ORDERED: PROPOFOL 10 MG/ML 20 ML VIAL IV ONE (09:11)
[2024-05-05] MEDS ORDERED: LIDOCAINE 1% INJ 10MG/ML (20 ML MDV) ONE (09:11)
--- NOTE | 2024-05-05 09:16 | P.GSHP ---
History of Present Illness H&P Date: 05/05/24 Chief Complaint: Dysphagia, screening 68-year-old female here for upper and lower endoscopy. Patient with mild intermittent episodes of dysphagia. Says food gets stuck. Usually solids. Mild reflux symptoms. No bowel complaints. No family history of colon cancer. She has not had a colonoscopy before. Past Medical History Past Medical History: CVA/TIA, Deep Vein Thrombosis (DVT), GERD/Reflux, Hyperlipidemia, Hypertension Additional Past Medical History / Comment(s): STATES ACID REFLUX AND frequent KIDNEY STONES, CVA 2020 causing numbness and weakness of left side History of Any Multi-Drug Resistant Organisms: None Reported Past Surgical History: Section, Tonsillectomy Additional Past Surgical History / Comment(s): KIDNEY STONES Past Anesthesia/Blood Transfusion Reactions: No Reported Reaction Smoking Status: Former smoker - Past Family History Father History Unknown: Yes Medications and Allergies Home Medications Medication Instructions Recorded Confirmed Type Acetaminophen Tab [Tylenol] 650 mg PO Q4H PRN 03/01/21 04/30/24 History Atorvastatin [Lipitor] 40 mg PO HS tab 03/07/21 04/30/24 Rx Cyanocobalamin [Vitamin B-12] 1,000 mcg PO DAILY tab 03/07/21 04/30/24 Rx amLODIPine [Norvasc] 5 mg PO DAILY tab 03/07/21 04/30/24 Rx Apixaban [Eliquis] 5 mg PO BID 04/30/24 04/30/24 History Gabapentin [Neurontin] 100 mg PO DAILY 04/30/24 04/30/24 History Vit D3 (Unk) 50 mcg PO DAILY 04/30/24 04/30/24 History Allergies Allergy/AdvReac Type Severity Reaction Status Date / Time No Known Allergies Allergy Verified 05/05/24 08:45 Surgical - Exam Vital Signs Temp Pulse Resp BP Pulse Ox 97.9 F 86 16 186/75 99 05/05/24 08:58 05/05/24 08:58 05/05/24 08:58 05/05/24 08:58 05/05/24 08:58 Physical exam: General: Well-developed, well-nourished HEENT: Normocephalic, sclerae nonicteric Abdomen: Nontender, nondistended Extremities: No edema Neuro: Alert and oriented Assessment and Plan (1) GERD (gastroesophageal reflux disease) Narrative/Plan: Will proceed with upper and lower endoscopy with possible dilation. Current Visit: Yes Status: Acute Code(s): K21.9 - GASTRO-ESOPHAGEAL REFLUX DISEASE WITHOUT ESOPHAGITIS SNOMED Code(s): 515085936
--- NOTE | 2024-05-05 09:41 | P.PCN ---
Date of Procedure: 05/05/24 Procedure(s) Performed: PREOPERATIVE DIAGNOSIS: Dysphagia, GERD, screening POSTOPERATIVE DIAGNOSIS: Gastritis, hiatal hernia, mild distal esophageal stricture, colon polyps, diverticulosis PROCEDURE: 1. EGD with biopsy and dilation 2. Colonoscopy with snare polypectomy ANESTHESIA: [facility] [place] SURGEON: Kwabena Ortiz M.D. SPECIMENS: Antrum ENDOSCOPIC PROCEDURE: The patient was on the endoscopy table in the left decubitus position. The Olympus gastroscope was inserted into the oropharynx and passed under direct visualization to the region of the third portion of the duodenum. From that point the scope was slowly withdrawn inspecting all surfaces carefully. There were no neoplastic inflammatory or polypoid lesions throughout the duodenum. The pylorus was widely patent. The stomach was carefully inspected. There was mild gastritis present. A biopsy of the antrum took place to rule out H. pylori. Retroflexion revealed a small hiatal hernia. The GE junction was present 2 cm above the diaphragmatic hiatus. At the GE junction there was no evidence of inflammation. There was some narrowing that appeared to be a mild stricture. The 12 to 15 mm balloon was used to sequentially dilate at 12, 13.5, and 15 mm. Pressure was held for 1 minute at each level. No mucosal tears were seen. The remainder the esophagus appeared normal. The patient was kept on the endoscopy table in the left decubitus position. The Olympus colonoscope was inserted into the anus and passed under direct visu alization to the base of the cecum. The appendiceal orifice was visualized. From that point the scope was slowly withdrawn inspecting all surfaces carefully. Just adjacent to the valve with a polyp was seen. This measured 8 mm in size. This was removed using the snare with cautery technique. The remainder of the cecum ascending transverse and descending colon appeared normal. In the sigmoid there was a polyp that was also removed using the snare with cautery technique. The remainder of the sigmoid and rectum was normal. The patient had mild diverticulosis. Digital rectal examination was normal. The patient was taken to the recovery room in stable condition per anesthesia guidelines. RECOMMENDATIONS: Await biopsy results. Begin daily antiacid therapy.
[2024-05-05 10:14] VITALS: BP 128/75; PULSE 91
== END 2024-05-05 10:38 | disposition home or self-care (01) ==
LOC: ORWHC2ENDO 08:21
PROVIDERS: ATTEND Surgery
DX: Z12.11 Encounter for screening for malignant neoplasm of colon (principal); D12.0 Benign neoplasm of cecum; D12.5 Benign neoplasm of sigmoid colon; E78.5 Hyperlipidemia, unspecified; B96.81 Helicobacter pylori [H. pylori] as the cause of diseases classified elsewhere; K21.00 Gastro-esophageal reflux disease with esophagitis, without bleeding; K22.2 Esophageal obstruction; K29.50 Unspecified chronic gastritis without bleeding; K44.9 Diaphragmatic hernia without obstruction or gangrene; I10 Essential (primary) hypertension; Z79.01 Long term (current) use of anticoagulants; Z86.718 Personal history of other venous thrombosis and embolism; Z86.73 Personal history of transient ischemic attack (TIA), and cerebral infarction without residual deficits; Z87.891 Personal history of nicotine dependence; Z79.899 Other long term (current) drug therapy
CPT/HCPCS: 43239; 43249; 45385; 88305; 88342

== ENCOUNTER 2024-10-07 05:04 | Emergency (ER) | payer MEDICARE, OTHER ==
--- NOTE | 2024-10-07 05:10 | ED ---
Fall HPI - General Stated Complaint: Fall Time Seen by Provider: 10/07/24 05:09 Source: RN notes reviewed, old records reviewed Mode of arrival: ambulatory Limitations: no limitations - History of Present Illness Initial Comments: This is a 68-year-old female to the ER after a fall. This was a mechanical trip and fall at the patient happened to experience tonight when going to the bathroom. 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 Place Fall Occurred: home Loss of Consciousness: none Prolonged Down Time?: no Symptoms Prior to Fall: none Location - Extremities: Left: Shoulder, Arm, Elbow Severity: severe Severity scale (1-10): 10 Quality: sharp Context: tripped/slipped Associated Symptoms: denies - Related Data Home Medications Medication Instructions Recorded Confirmed Acetaminophen Tab [Tylenol] 650 mg PO Q4H PRN 03/01/21 04/30/24 Apixaban [Eliquis] 5 mg PO BID 04/30/24 04/30/24 Gabapentin [Neurontin] 100 mg PO DAILY 04/30/24 04/30/24 Vit D3 (Unk) 50 mcg PO DAILY 04/30/24 04/30/24 Previous Rx's Medication Instructions Recorded Atorvastatin [Lipitor] 40 mg PO HS tab 03/07/21 Cyanocobalamin [Vitamin B-12] 1,000 mcg PO DAILY tab 03/07/21 amLODIPine [Norvasc] 5 mg PO DAILY tab 03/07/21 Omeprazole [PriLOSEC] 20 mg PO AC-BRKFST #90 cap 05/05/24 Allergies Allergy/AdvReac Type Severity Reaction Status Date / Time No Known Allergies Allergy Verified 05/05/24 08:45 Review of Systems ROS Statement: Those systems with pertinent positive or pertinent negative responses have been documented in the HPI. ROS Other: All systems not noted in ROS Statement are negative. Past Medical History Past Medical History: CVA/TIA, GERD/Reflux Additional Past Medical History / Comment(s): STATES ACID REFLUX AND KIDNEY STONES, CVA 2020 causing numbness and weakness of left side History of Any Multi-Drug Resistant Organisms: None Reported Past Surgical History: Section Additional Past Surgical History / Comment(s): KIDNEY STONES Past Anesthesia/Blood Transfusion Reactions: No Reported Reaction Past Psychological History: No Psychological Hx Reported General Exam - General Exam Comments Initial Comments: Left shoulder pain and deformity No findings of radial nerve impingement General appearance: alert, in no apparent distress Head exam: Present: atraumatic, normocephalic, normal inspection Eye exam: Present: normal appearance, PERRL, EOMI. Absent: scleral icterus, conjunctival injection, periorbital swelling ENT exam: Present: normal exam, mucous membranes moist Neck exam: Present: normal inspection. Absent: tenderness, meningismus, lymphadenopathy Respiratory exam: Present: normal lung sounds bilaterally. Absent: respiratory distress, wheezes, rales, rhonchi, stridor Cardiovascular Exam: Present: regular rate, normal rhythm, normal heart sounds. Absent: systolic murmur, diastolic murmur, rubs, gallop, clicks GI/Abdominal exam: Present: soft, normal bowel sounds. Absent: distended, tenderness, guarding, rebound, rigid Extremities exam: Present: normal inspection, full ROM, normal capillary refill. Absent: tenderness, pedal edema, joint swelling, calf tenderness Back exam: Present: normal inspection Neurological exam: Present: alert, oriented X3, CN II-XII intact Psychiatric exam: Present: normal affect, normal mood Skin exam: Present: warm, dry, intact, normal color. Absent: rash Course Vital Signs 10/07/24 10/07/24 10/07/24 05:06 06:35 07:15 Temperature 98.0 F 97.6 F 97.3 F L Pulse Rate 65 80 86 Respiratory 18 20 18 Rate Blood Pressure 129/65 139/82 159/68 O2 Sat by Pulse 94 L 99 99 Oximetry - Reevaluation(s) Reevaluation #1: Medical records reviewed Reevaluation #2: Patient's pain is controlled Difficult to place sling secondary to body habitus Patient has no signs of nerve involvement currently Reevaluation #3: Patient informed of results and questions answered Reevaluation #4: Was pt. sent in by a medical professional or institution (, PA, [employer], urgent care, hospital, or [facility]...) When possible be specific @ -no Did you speak to anyone other than the patient for history (EMS, parent, family, police, friend...)? What history was obtained from this source @ -no Did you review nursing and triage notes (agree or disagree)? Why? @ -agree Are old charts reviewed (outside hosp., previous admission, EMS record, old EKG, old radiological studies, urgent care reports/EKG's, [facility] records)? Report findings @ -yes Differential Diagnosis (chest pain, altered mental status, abdominal pain women, abdominal pain men, vaginal bleeding, weakness, fever, dyspnea, syncope, headache, dizziness, GI bleed, back pain, seizure, CVA, palpatations, mental health, musculoskeletal)? @ -prior EKG interpreted by me (3pts min.). @ -no X-rays interpreted by me (1pt min.). @ -yes positive left humerus fracture CT interpreted by me (1pt min.). @ -no U/S interpreted by me (1pt. min.). @ -no What testing was considered but not performed or refused? (CT, X-rays, U/S, l abs)? Why? @ -none What meds were considered but not given or refused? Why? @ -none Did you discuss the management of the patient with other professionals (professionals i.e. , PA, [employer], lab, RT, psych nurse, case management social worker, carton stamper, teacher, sergeant of officers, machine adjuster leader case trim)? Give summary @ -no Was smoking cessation discussed for >3mins.? @ -no Was critical care preformed (if so, how long)? @ -no Were there social determinants of health that impacted care today? How? (Homelessness, low income, unemployed, alcoholism, drug addiction, transportation, low edu. Level, literacy, decrease access to med. care, skilled nursing, rehab)? @ -none Was there de-escalation of care discussed even if they declined (Discuss DNR or withdrawal of care, Hospice)? DNR status @ -no What co-morbidities impacted this encounter? (DM, HTN, Smoking, COPD, CAD, Cancer, CVA, ARF, Chemo, Hep., AIDS, mental health diagnosis, sleep apnea, morbid obesity)? @ -none Was patient admitted / discharged? Hospital course, mention meds given and route, prescriptions, significant lab abnormalities, going to OR and other pertinent info. @ - 68 female presents after fall fall with left midshaft spiral humerus fracture. Placed in a sling and patient can be discharged home, spoke with orthopedics will see patient in the office Discharged Undiagnosed new problem with uncertain prognosis? @ -no Drug Therapy requiring intensive monitoring for toxicity (Heparin, Nitro, Insulin, Cardizem)? @ -no Were any procedures done? @ -no Diagnosis/symptom? @ -Left humerus spiral fracture Acute, or Chronic, or Acute on Chronic? @ -Acute Uncomplicated (without systemic symptoms) or Complicated (systemic symptoms)? @ -Complicated Side effects of treatment? @ -no Exacerbation, Progression, or Severe Exacerbation? @ -exacerbation Poses a threat to life or bodily function? How? (Chest pain, USA, MA, pneumonia, PE, COPD, DKA, ARF, appy, cholecystitis, CVA, Diverticulitis, Homicidal, Suicidal, threat to staff... and all critical care pts) @ -yes - Consultations Consultation #1: Spoke with orthopedics on-call for okay to see patient in office without significant intervention Procedures - Orthopedic Splinting/Casting Injury #1 Side: left Upper Extremity Injury Location: shoulder, short arm Medical Decision Making - Medical Decision Making 68 female presents after fall fall with left midshaft spiral humerus fracture. Placed in a sling and patient can be discharged home, spoke with orthopedics will see patient in the office - Lab Data Result diagrams: 10/07/24 06:10 10/07/24 06:10 Lab Results 10/07/24 10/07/24 10/07/24 Range/Units 06:10 06:10 06:10 WBC 5.6 (3.8-10.6) k/uL RBC 3.91 (3.80-5.40) m/uL Hgb 9.8 L (11.4-16.0) gm/dL Hct 32.4 L (34.0-46.0) % MCV 82.8 (80.0-100.0) fL MCH 25.1 (25.0-35.0) pg MCHC 30.3 L (31.0-37.0) g/dL RDW 18.7 H (11.5-15.5) % Plt Count 307 (150-450) k/uL MPV 7.5 Neutrophils % 57 % Lymphocytes % 32 % Monocytes % 7 % Eosinophils % 2 % Basophils % 0 % Neutrophils # 3.2 (1.3-7.7) k/uL Lymphocytes # 1.8 (1.0-4.8) k/uL Monocytes # 0.4 (0-1.0) k/uL Eosinophils # 0.1 (0-0.7) k/uL Basophils # 0.0 (0-0.2) k/uL Hypochromasia Marked Anisocytosis Slight Microcytosis Slight PT 10.9 (10.0-12.5) sec INR 1.0 (<1.2) APTT 23.7 (22.0-30.0) sec Sodium 138 (137-145) mmol/L Potassium 4.5 (3.5-5.1) mmol/L Chloride 103 (98-107) mmol/L Carbon Dioxide 24 (22-30) mmol/L Anion Gap 11 mmol/L BUN 18 H (7-17) mg/dL Creatinine 0.69 (0.52-1.04) mg/dL Est GFR (CKD-EPI)AfAm >90 (>60 ml/min/1.73 sqM) Est GFR (CKD-EPI)NonAf 90 (>60 ml/min/1.73 sqM) Glucose 113 H (74-99) mg/dL Calcium 9.0 (8.4-10.2) mg/dL Phosphorus 4.2 (2.5-4.5) mg/dL Magnesium 2.2 (1.6-2.3) mg/dL Total Bilirubin 0.6 (0.2-1.3) mg/dL AST 28 (14-36) U/L ALT 17 (4-34) U/L Alkaline Phosphatase 106 (38-126) U/L Troponin I (0.000-0.034) ng/mL Total Protein 6.9 (6.3-8.2) g/dL Albumin 3.7 (3.5-5.0) g/dL 10/07/24 Range/Units 06:10 WBC (3.8-10.6) k/uL RBC (3.80-5.40) m/uL Hgb (11.4-16.0) gm/dL Hct (34.0-46.0) % MCV (80.0-100.0) fL MCH (25.0-35.0) pg MCHC (31.0-37.0) g/dL RDW (11.5-15.5) % Plt Count (150-450) k/uL MPV Neutrophils % % Lymphocytes % % Monocytes % % Eosinophils % % Basophils % % Neutrophils # (1.3-7.7) k/uL Lymphocytes # (1.0-4.8) k/uL Monocytes # (0-1.0) k/uL Eosinophils # (0-0.7) k/uL Basophils # (0-0.2) k/uL Hypochromasia Anisocytosis Microcytosis PT (10.0-12.5) sec INR (<1.2) APTT (22.0-30.0) sec Sodium (137-145) mmol/L Potassium (3.5-5.1) mmol/L Chloride (98-107) mmol/L Carbon Dioxide (22-30) mmol/L Anion Gap mmol/L BUN (7-17) mg/dL Creatinine (0.52-1.04) mg/dL Est GFR (CKD-EPI)AfAm (>60 ml/min/1.73 sqM) Est GFR (CKD-EPI)NonAf (>60 ml/min/1.73 sqM) Glucose (74-99) mg/dL Calcium (8.4-10.2) mg/dL Phosphorus (2.5-4.5) mg/dL Magnesium (1.6-2.3) mg/dL Total Bilirubin (0.2-1.3) mg/dL AST (14-36) U/L ALT (4-34) U/L Alkaline Phosphatase (38-126) U/L Troponin I <0.012 (0.000-0.034) ng/mL Total Protein (6.3-8.2) g/dL Albumin (3.5-5.0) g/dL - Radiology Data Radiology results: report reviewed (CT brain C-spine negative for acute disease chest and pelvis x-ray negative for traumatic injury x-ray left humerus positive for midshaft spiral fracture), image reviewed Disposition Clinical Impression: Fall, Left humeral fracture, Spiral fracture of shaft of humerus Disposition: HOME SELF-CARE Condition: Fair Instructions (If sedation given, give patient instructions): Arm Fracture in Adults (ED), Fall Prevention for Older Adults (ED) Is patient prescribed a controlled substance at d/c from ED?: No Referrals: Chava Live DO [Primary Care Provider] - 1-2 days Time of Disposition: 06:30
--- NOTE | 2024-10-07 06:07 | CT ---
EXAMINATION TYPE: CT brain shaunine wo con DATE OF EXAM: 10/07/2024 COMPARISON: CT brain number 02/14/2021 CLINICAL INDICATION: Female, 68 years old with history of fall, headache and neck pain after fall inj ury, TECHNIQUE: CT scan of the head and cervical spine are performed without contrast. CT DLP: 1570 mGycm. Automated Exposure Control for Dose Reduction was Utilized. FINDINGS: There is no acute intracranial hemorrhage or midline shift identified. Mild to moderate v entricular and sulcal prominence redemonstrated. Mild low-attenuation in the periventricular white ma tter again seen. Old infarct right parietal lobe redemonstrated The globes are intact and the visuali zed sinuses are clear. The calvarium is intact. Cervical spine is visualized in its entirety from C1 through upper thoracic levels and demonstrates s atisfactory alignment without evidence of acute fracture or dislocation. Prevertebral soft tissue ap pears within normal limits. The C1-C2 articulation is within normal limits on the coronal images. V ertebral body heights and disc space heights appear within normal limits. Spinal canal appears preser emily. Lung apices show no pneumothorax. Thyroid gland is normal in size. IMPRESSION: 1. There is no acute fracture or dislocation evident in the cervical spine. 2. No acute intracranial hemorrhage or midline shift is seen. [facility], , 10/07/2024 6:04 AM
--- NOTE | 2024-10-07 06:27 | XR ---
EXAMINATION TYPE: XR chest 1V DATE OF EXAM: 10/07/2024 COMPARISON: Chest x-ray March 01, 2021 CLINICAL INDICATION: Female, 68 years old with history of fall; pain. TECHNIQUE: Single frontal view of the chest is obtained. FINDINGS: Suboptimal with patient rotation to the right. Diminish inspiration is seen. More promine nt cardiomegaly is noted. And no peripheral focal airspace opacity, pleural effusion, or pneumothorax . There is soft tissue fullness right paratracheal/suprahilar region . Advise nonemergent CT follow-u p to exclude mass or adenopathy at this level. The osseous structures are intact. IMPRESSION: No acute cardiopulmonary process. Other findings as noted above. [facility], , 10/07/2024 6:25 AM
--- NOTE | 2024-10-07 06:28 | XR ---
EXAMINATION TYPE: XR humerus LT DATE OF EXAM: 10/07/2024 CLINICAL INDICATION: Female, 68 years old with history of fall, pain TECHNIQUE: Two views of the left humerus are obtained. COMPARISON: None. FINDINGS: There is acute displaced impact spiral type fracture through the proximal diaphysis of the left humerus. Overlying soft tissue is unremarkable. IMPRESSION: As above. [facility], , 10/07/2024 6:26 AM
--- NOTE | 2024-10-07 06:29 | XR ---
EXAMINATION TYPE: XR pelvis AP view DATE OF EXAM: 10/07/2024 CLINICAL INDICATION: Female, 68 years old with history of fall, pain TECHNIQUE: A single AP view of the pelvis is obtained. COMPARISON: CT abdomen and pelvis January 07, 2024. FINDINGS: There is no acute displaced fracture evident in the pelvis. Moderate to severe of joint sp david loss and moderate spurring in both hip joints is present. Pubic symphysis is intact. Scattered ti ny bilateral pelvic phleboliths are again seen. IMPRESSION: There is no acute fracture or dislocation in the pelvis. [facility], , 10/07/2024 6:27 AM
[2024-10-07 06:30] LABS: Anisocytosis Slight; Basophils % (A) 0 %; Eosinophils # (A) 0.1 k/uL (0-0.7); Eosinophils % (A) 2 %; HCT 32.4 % (34.0-46.0); HGB 9.8 gm/dL (11.4-16.0); Hypochromasia Marked; Lymphocytes # (A) 1.8 k/uL (1.0-4.8); Lymphocytes % (A) 32 %; MCH 25.1 pg (25.0-35.0); MCHC 30.3 g/dL (31.0-37.0); MCV 82.8 fL (80.0-100.0); Mean Platelet Volume 7.5; Microcytosis Slight; Monocytes # (A) 0.4 k/uL (0-1.0); Monocytes % (A) 7 %; Neutrophils # (A) 3.2 k/uL (1.3-7.7); Neutrophils % (A) 57 %; Platelet Count 307 k/uL (150-450); RBC 3.91 m/uL (3.80-5.40); RDW 18.7 % (11.5-15.5); WBC 5.6 k/uL (3.8-10.6)
[2024-10-07 06:39] LABS: Partial Thromboplastin Time 23.7 sec (22.0-30.0); Prothrombin Time 10.9 sec (10.0-12.5)
[2024-10-07] MEDS: SODIUM CHLORIDE 0.9% 1,000 ML IV ONE (06:39)
[2024-10-07] MEDS: MORPHINE SULFATE 4 MG/ML SYRINGE IV STA (06:41)
[2024-10-07 06:49] LABS: ALT 17 U/L (4-34); AST 28 U/L (14-36); African American GFR (CKD) >90 (>60 ml/min/1.73 sqM); Albumin 3.7 g/dL (3.5-5.0); Alkaline Phosphatase 106 U/L (38-126); Anion Gap 11 mmol/L; Blood Urea Nitrogen 18 mg/dL (7-17); Carbon Dioxide 24 mmol/L (22-30); Chloride 103 mmol/L (98-107); Glucose 113 mg/dL (74-99); Magnesium 2.2 mg/dL (1.6-2.3); Non-African American GFR(CKD) 90 (>60 ml/min/1.73 sqM); Phosphorus 4.2 mg/dL (2.5-4.5); Sodium 138 mmol/L (137-145); Total Bilirubin 0.6 mg/dL (0.2-1.3); Total Protein 6.9 g/dL (6.3-8.2)
[2024-10-07 06:54] LABS: Potassium 4.5 mmol/L (3.5-5.1)
[2024-10-07] MEDS: Acetaminophen-Codeine 300-30mg TAB PO STA (07:08)
[2024-10-07] MEDS: ACET/COD 300 MG/30 MG STARTER PACK 6 TAB BTL PO STA (07:11)
[2024-10-07 07:25] VITALS: BP 159/68; PULSE 86; RESP 18; TEMP 97.3
== END 2024-10-07 08:45 | disposition home or self-care (01) ==
LOC: EC 05:04
DX: S42.342A Displaced spiral fracture of shaft of humerus, left arm, initial encounter for closed fracture (principal); Z86.73 Personal history of transient ischemic attack (TIA), and cerebral infarction without residual deficits; W01.0XXA Fall on same level from slipping, tripping and stumbling without subsequent striking against object, initial encounter; Y92.009 Unspecified place in unspecified non-institutional (private) residence as the place of occurrence of the external cause
CPT/HCPCS: 36415; 80053; 83735; 84100; 84484; 85025; 85610; 85730; 72170; 73060; 71045; 72125; 70450; 99285; 29125; 96374; 96361; J2270

== ENCOUNTER → 2024-10-21 | Outpatient (CLI) | payer MEDICARE, OTHER ==
[2024-10-21 10:34] LABS: African American GFR (CKD) >90 (>60 ml/min/1.73 sqM); Blood Urea Nitrogen 23 mg/dL (7-17); Non-African American GFR(CKD) >90 (>60 ml/min/1.73 sqM)
--- NOTE | 2024-10-21 12:33 | CT ---
EXAMINATION TYPE: CT chest wo con DATE OF EXAM: 10/21/2024 COMPARISON: Chest x-ray October 07, 2024 CLINICAL INDICATION: Female, 68 years old with history of R22.9 localized swelling/mass chest, swelli ng/ mass. noted a soft tissue fullness right paratracheal/suprahilar region. Abnormal x-ray. TECHNIQUE: CT scan of the thorax is performed without IV contrast. CT DLP: 917.70 mGycm. Automated Exposure Control for Dose Reduction was Utilized. FINDINGS: LUNGS: The lungs are grossly clear including right paratracheal region, there is no concerning parenc hymal mass or focal consolidation identified. There is no pleural effusion or pneumothorax seen. T he tracheobronchial tree is patent. HEART: Cardiomegaly is present. Moderate to severe three-vessel coronary artery calcifications. MEDIASTINUM: Lack of IV contrast is noted to limit evaluation for mediastinal and especially hilar ad enopathy. There are no definitive greater than 1 cm mediastinal lymph nodes. No pericardial effusio n is seen. OTHER: Atrophy in the region of the pancreatic head is present. Displaced subacute fracture of the le ft proximal humerus is partially imaged. IMPRESSION: No acute pulmonary process. No suspicious mass or adenopathy with attention to the right paratracheal region. [facility], , 10/21/2024 12:30 PM
== END | disposition home or self-care (01) ==
LOC: RADCTMAIN 09:06
PROVIDERS: ATTEND Family Medicine
DX: S42.292A Other displaced fracture of upper end of left humerus, initial encounter for closed fracture (principal); I51.7 Cardiomegaly; R59.0 Localized enlarged lymph nodes; X58.XXXA Exposure to other specified factors, initial encounter
CPT/HCPCS: 36415; 71250; 82565; 84520